=== PATIENT | male | born 1950 | race Caucasian/White ===

== ENCOUNTER → 2020-02-16 10:14 | Outpatient (CLI) | payer MEDICARE, SELFPAY ==
--- NOTE | ~2020-02-16 | XR_ITS ---
EXAMINATION: XR foot LT min 3V DATE: 02/16/2020 10:42 INDICATION: Left foot pain TECHNIQUE: Dorsoplantar, lateral, and 2 oblique views of the left foot were obtained. COMPARISON: None. FINDINGS: There is mild dorsal soft tissue swelling overlying the distal metatarsals. The bones are o steopenic which limits the sensitivity for fracture however none is seen. Dorsal and plantar calcanea l enthesophytes are noted. There is mild polyarticular osteoarthritis. Bone alignment is normal. IMPRESSION: 1. No acute osseous abnormality. Reviewed, dictated and finalized at location A. URERS
== END ==
PROVIDERS: PCP Family Medicine; Visit Provider Family Medicine
DX: M79.672 Pain in left foot (principal)
CPT/HCPCS: 73630

== ENCOUNTER → 2020-07-26 03:01 | Outpatient (CLI) | payer MEDICARE, SELFPAY ==
[2020-07-26 19:42] LABS: SARS-CoV-2 RNA PCR Negative
== END ==
PROVIDERS: PCP Family Medicine; Visit Provider Internal Medicine Gastroenterology
DX: Z01.812 Encounter for preprocedural laboratory examination (principal); Z20.822 Contact with and (suspected) exposure to COVID-19
CPT/HCPCS: C9803; U0003; U0005

== ENCOUNTER 2020-07-29 01:11 | Day surgery (SDC) | payer MEDICARE, SELFPAY ==
[2020-07-16 14:57] VITALS: BMI 26.4
[2020-07-29 07:39] VITALS: BP 136/69; PULSE 66; RESP 20; TEMP 36.3; O2SAT 100
[2020-07-29] MEDS: LACTATED RINGERS 1,000 ML 150 ML IV CONT (07:46)
--- NOTE | 2020-07-29 08:45 | PM.HPGS ---
History of Present Illness History of Present Illness Consent: Risks, benefits, and alternatives have been discussed and questions answered. Patient agrees to proceed with procedure. Chief complaint: hx of colon polyps, meyer's esophagus Narrative: Torres Redmond is a 69 year old male Here for follow-up of Meyer's esophagus and for screening for colon cancer. He has had polyps removed in the past Review of Systems Review of Systems: All systems reviewed & are unremarkable except as noted in HPI and below PMFSH Family History Family History Other Family history of congenital heart disease Social History Social History Smoking status: Never smoker Drinks per week: 4 Alcohol use details: beer Living arrangements: with family Gender identity (if verbalized by the patient): Male Spiritual care concerns: No Meds Home Medications and Allergies Home Medications Medication Instructions Recorded Confirmed Type amlodipine 10 mg PO DAILY 07/16/20 07/29/20 History aspirin 81 mg PO DAILY 07/16/20 07/29/20 History coenzyme Q10 200 mg PO DAILY 07/16/20 07/29/20 History diclofenac sodium 75 mg PO DAILY 07/16/20 07/29/20 History ezetimibe 10 mg PO DAILY 07/16/20 07/29/20 History famotidine 20 mg PO DAILY 07/16/20 07/29/20 History latanoprost 1 drp EACH EYE DAILY 07/16/20 07/29/20 History lisinopril-hydrochlorothiazide 2 tablet PO DAILY 07/16/20 07/29/20 History magnesium 250 mg PO DAILY 07/16/20 07/29/20 History nebivolol [Bystolic] 10 mg PO DAILY 07/16/20 07/29/20 History omeprazole 20 mg PO DAILY 07/16/20 07/29/20 History pravastatin 80 mg PO DAILY 07/16/20 07/29/20 History Allergies Allergy/AdvReac Type Severity Reaction Status Date / Time morphine Allergy Unknown Itching Verified 07/29/20 07:38 Vital Signs Vital Signs - 24 hr 07/29/20 07:39 Temperature 36.3 C L Pulse Rate 66 Respiratory Rate 20 Blood Pressure 136/69 Pulse Oximetry 100 Exam Const: General: alert Orientation/consciousness: patient oriented x3 Resp: Auscultation: clear to auscultation bilaterally Cardio: Rhythm: regular rhythm GI: GI Palp: Yes Soft to palpation and No Tenderness to palpation present (GI) Neuro: General: patient oriented x3 Assessment and Plan Assessment and plan (1) Meyer's esophagus: Code(s): K22.70 - Meyer's esophagus without dysplasia Status: Acute Assessment and Plan: EGD with possible biopsy or dilatation or cautery. (2) Colon cancer screening: Code(s): Z12.11 - Encounter for screening for malignant neoplasm of colon Status: Acute Assessment and Plan: Colonoscopy with possible biopsy or polypectomy or cautery or injection of substances.
--- NOTE | 2020-07-29 08:53 | WPDANESEPPF ---
Anes - Initial Pre Proc Eval Procedure: Operation Date: 07/29/20 09:00 Proposed Procedures p Esophagogastroduodenoscopy & Colonoscopy - Gilbert Li MD Date/Time: 07/29/20 08:53 Surgeon: Gilbert Li MD Pre Op Diagnosis: hx of colon polyps, meyer's esophagus Patient Data Age: 69 Gender: M Height: 5 ft 9 in Weight: 76.1 kg Last Vital Signs Temp 97.4 F L 07/29/20 07:39 Pulse 66 07/29/20 07:39 Resp 20 07/29/20 07:39 BP 136/69 07/29/20 07:39 Pulse Ox 100 07/29/20 07:39 Allergies Allergy/AdvReac Type Severity Reaction Status Date / Time morphine Allergy Unknown Itching Verified 07/29/20 07:38 Home Medications Medication Instructions Recorded Confirmed Type amlodipine 10 mg PO DAILY 07/16/20 07/29/20 History aspirin 81 mg PO DAILY 07/16/20 07/29/20 History coenzyme Q10 200 mg PO DAILY 07/16/20 07/29/20 History diclofenac sodium 75 mg PO DAILY 07/16/20 07/29/20 History ezetimibe 10 mg PO DAILY 07/16/20 07/29/20 History famotidine 20 mg PO DAILY 07/16/20 07/29/20 History latanoprost 1 drp EACH EYE DAILY 07/16/20 07/29/20 History lisinopril-hydrochlorothiazide 2 tablet PO DAILY 07/16/20 07/29/20 History magnesium 250 mg PO DAILY 07/16/20 07/29/20 History nebivolol [Bystolic] 10 mg PO DAILY 07/16/20 07/29/20 History omeprazole 20 mg PO DAILY 07/16/20 07/29/20 History pravastatin 80 mg PO DAILY 07/16/20 07/29/20 History Patient hx anesthesia problems: none Family hx anesthesia problems: none PMFSH Past Medical History Medical History (Updated 07/29/20 @ 08:54 by Darren Alcala MD) H/O acute myocardial infarction no problems since 1996 Hyperlipidemia Hypertension Family History Family History Other Family history of congenital heart disease Social History Social History Smoking status: Never smoker Drinks per week: 4 Alcohol use details: beer Living arrangements: with family Gender identity (if verbalized by the patient): Male Spiritual care concerns: No Anes - Eval Final PreProcedure Day of Procedure 07/29/20 08:53 Patient weight: overweight Heart: regular rate and rhythm Lungs: clear to auscultation Airway: Mallampati scale class II Neurological: alert and oriented Last oral intake: >/= 8 hours ASA classification: III Emergent: no Anesthetic plan: proceed Anesthesia type and monitoring: general GIVS and standard monitoring Informed Consent: The patient's anesthetic plan and its attendant risks and benefits were discussed with the patient/family/POA. Questions were solicited and answers provided to the satisfaction of the patient/family/POA.
--- NOTE | 2020-07-29 09:23 | SUR.OPER ---
EGD ENDED 909, COLONOSCOPY BEGAN 913
[2020-07-29 09:27] VITALS: BP 98/53; PULSE 62; RESP 19; O2SAT 99
[2020-07-29 09:37] VITALS: BP 104/50; PULSE 52; RESP 17; O2SAT 99
[2020-07-29 09:47] VITALS: BP 119/72; PULSE 51; RESP 19; O2SAT 100
== END 2020-07-29 09:50 | disposition home or self-care (01) ==
PROVIDERS: PCP Family Medicine; Visit Provider Internal Medicine Gastroenterology
PROC: 0DJ08ZZ Inspection of Upper Intestinal Tract, Via Natural or Artificial Opening Endoscopic (ICD-10-PCS; CPT 43235; principal; 2020-07-29 09:00)
DX: Z12.11 Encounter for screening for malignant neoplasm of colon (principal); K57.30 Diverticulosis of large intestine without perforation or abscess without bleeding; K22.70 Barrett's esophagus without dysplasia; Z86.010 Personal history of colon polyps; I10 Essential (primary) hypertension; I25.2 Old myocardial infarction; E78.5 Hyperlipidemia, unspecified; Z79.82 Long term (current) use of aspirin
CPT/HCPCS: 43239; G0105; 88305; J2704; J7120

== ENCOUNTER 2021-01-06 08:57 | Outpatient (CLI) | payer MEDICARE, SELFPAY ==
--- NOTE | ~2021-01-06 | US_ITS ---
US art doppler w press LE BI INDICATION: Bilateral lower extremity pain and fatigue. Decreased pulses. TECHNIQUE: Segmental pressures and plethysmographic and Doppler waveforms of the brachial and lower e xtremity arteries were obtained. COMPARISON: None. FINDINGS: Right and left brachial artery pressures of 133 mm Hg and 136 mm Hg, respectively, are concordant (no rmal difference <= 30 mmHg). The right ankle-brachial index (ANETTE) is 1.13 (normal >= 0.9-1.0). The right great toe-brachial index (TBI) is .56 (normal >= 0.60). The left ANETTE is 1.07. The left TBI is 0.9. IMPRESSION: 1. Mildly diminished right toe brachial index with normal ABIs, consistent with mild peripheral arter ial disease. 2: Normal left ankle and toe brachial indices. Reviewed, dictated and finalized at location A. IMPRESSION: 1. Mildly diminished right toe brachial index with normal ABIs, consistent with mild peripheral arterial disease. 2: Normal left ankle and toe brachial indices.
== END 2021-01-06 08:58 | disposition home or self-care (01) ==
PROVIDERS: PCP Family Medicine; Visit Provider Internal Medicine Cardiovascular Disease
DX: M79.604 Pain in right leg (principal); M79.605 Pain in left leg; R29.898 Other symptoms and signs involving the musculoskeletal system; I73.89 Other specified peripheral vascular diseases
CPT/HCPCS: 93923

== ENCOUNTER 2021-01-19 08:32 | Outpatient (CLI) | payer MEDICARE, SELFPAY ==
--- NOTE | ~2021-01-19 | MR_ITS ---
EXAMINATION: MR lumbar spine wo con DATE: 01/19/2021 09:39 INDICATION: Degenerative disc disease of the lumbar spine TECHNIQUE: Magnetic resonance imaging (MRI) of the lumbar spine was performed without intravenous con trast. Sequences included sagittal T2-weighted FSE, sagittal T2-weighted FS FSE, sagittal T1-weighted FSE, and axial T2-weighted FSE. COMPARISON: 05/24/2018 FINDINGS: 10 degrees thoracolumbar dextroscoliosis measured between T10 and L3 on the stabilizer operator images. Sagittal al ignment is normal. No interval change in chronic mild anterior wedging at T11-L1. There are a few sma ll Schmorl's nodes at multiple endplates in the lumbar and lower thoracic spine. Severe disc height l oss with endplate osteophytes and fibrovascular degenerative endplate changes at L3-L4. Disc height l oss, severe at L3-L4 and L5-S1, both with degenerative endplate osteophytes and fibrovascular degener ative endplate changes. Moderate disc height loss at L2-L3 and mild disc height loss at L4-L5. There are annular fissures at each of these levels. Marrow signal is otherwise normal. The conus medullaris terminates at L1. There is normal signal in the caudal spinal cord. 1.4 cm right renal cyst. Paraver tebral soft tissues are otherwise unremarkable. The following disc levels are specifically discussed: T12-L1: Disc is mildly bulging. There is moderate right and mild left facet joint osteoarthritis. The re is no neural foraminal stenosis. There is no central canal stenosis. L1-L2: Mild left foraminal disc protrusion. There is mild left and moderate right facet joint osteoar thritis. There is mild bilateral neural foraminal stenosis. There is no central canal stenosis. L2-L3: Disc is bulging. There is mild bilateral facet joint osteoarthritis. There is mild to moderate bilateral neural foraminal stenosis. There is mild central canal stenosis. L3-L4: Disc is bulging to a lesser degree than on the prior study. There is moderate to severe bilate ral facet joint osteoarthritis. There is severe right and moderate to severe left neural foraminal st enosis. There is decreased moderate central canal stenosis. There is mild increased signal at the rig ht side of the ligamentum flavum suggesting possible scarring related to prior access for a partial d iscectomy. Correlate with surgical history. L4-L5: Disc is bulging. There is severe bilateral, right greater than left facet joint osteoarthritis . There is severe right and moderate to severe left neural foraminal stenosis. There is moderate cent ral canal stenosis. L5-S1: Disc is bulging. There is severe bilateral facet joint osteoarthritis. There is moderate left and moderate to severe right neural foraminal stenosis. There is mild central canal stenosis. IMPRESSION: 1. Severe lumbar spondylosis with progression of disc height loss but decrease in the size of the pos terior disc bulge L3-L4 suggesting interval partial discectomy with decreased now moderate central ca nal stenosis at this level. Reviewed, dictated and finalized at location B. IMPRESSION: 1. Severe lumbar spondylosis with progression of disc height loss but decrease in the size of the posterior disc bulge L3-L4 suggesting interval partial disce ctomy with decreased now moderate central canal stenosis at this level.
== END 2021-01-19 08:33 | disposition home or self-care (01) ==
PROVIDERS: PCP Family Medicine; Visit Provider Family Medicine
DX: M47.815 Spondylosis without myelopathy or radiculopathy, thoracolumbar region (principal); M48.05 Spinal stenosis, thoracolumbar region; M47.817 Spondylosis without myelopathy or radiculopathy, lumbosacral region; M48.07 Spinal stenosis, lumbosacral region
CPT/HCPCS: 72148

== ENCOUNTER 2021-02-06 12:32 | Outpatient (CLI) | payer MEDICARE, SELFPAY ==
--- NOTE | ~2021-02-06 | MR_ITS ---
EXAMINATION: MR thoracic spine wo con EXAM DATE: 02/06/2021 14:00 INDICATION: Lumbar radiculopathy TECHNIQUE: Multi-sequential, multiplanar MR images of the thoracic spine were obtained without contra st. Sagittal T1, T2, T2 fat saturation, axial T2 weighted images reviewed. Correlation is made to [facility] [place] 2011. FINDINGS: Mild mid and lower thoracic disc disease. Mild diffuse thoracic facet arthropathy. The spin al cord signal intensity and intrinsic morphology is normal. The thoracic neural foramen and central canal are widely patent. There are small to moderate-sized mid and lower thoracic anterolateral endpl ate osteophytes. In the T5 vertebral body there is vague decreased T1 and T2 signal intensity measuri ng 1.1 cm, differential diagnosis including atypical hemangioma and less likely osteoblastic disease. Paraspinal soft tissue is unremarkable. IMPRESSION: 1. Mild thoracic spondylosis without stenosis. 2. Nonspecific vague T5 hypointensity more likely atypical hemangioma than osteoblastic disease. If PSA elevated, bone scan would be indicated. Reviewed, dictated and finalized at location B. IMPRESSION: 1. Mild thoracic spondylosis without stenosis. 2. Nonspecific vague T5 hypointensity more likely atypical hemangioma than ost eoblastic disease. If PSA elevated, bone scan would be indicated.
--- NOTE | ~2021-02-06 | MR_ITS ---
EXAMINATION: MR cervical spine wo/w con EXAM DATE: 02/06/2021 14:08 INDICATION: Cervical spondylosis, right arm numbness and pain for one month. History cervical surgery . TECHNIQUE: Multi-sequential, multiplanar MR images of the cervical spine were obtained without contra st. Axial T2, axial T2 MERGE sequence. Sagittal T1, T2, T2 fat saturation images also obtained. Axi al T1 weighted sequence. Patient was then injected with 14 mL Multihance intravenous contrast and re imaged. Postcontrast axial and sagittal T1-weighted fat saturation sequences were obtained. There i s no prior study for comparison. FINDINGS: There is 3 mm anterolisthesis C3 on C4 with moderate loss of this disc height. There is 2 mm retrolisthesis C6 on C7 with moderate to severe loss of this disc height. There is anterior fusion and solid bone bridging identified at the C5-6 level. There is mild to moderate central canal stenosis at the C3-4 level, which is the most narrowed region of the cervical spinal canal, but still measures 7 mm in mid sagittal AP dimension. There is mild fl attening of the spinal cord at this level and mildly increased T2 signal intensity, could be mild cor d edema or myelomalacia. Uncertain whether or not steroids would be beneficial. Cervicomedullary junc tion is normal in appearance. There is 2 mm retrolisthesis C6 on C7. There are no areas of abnormal enhancement on the post contrast images. Level by level evaluation: C2-C3: Disc does not extend beyond the endplate margin. Uncovertebral joint arthropathy: Mild bilateral. Facet joint arthropathy: Moderate to severe right, mild to moderate left. Neural foraminal stenosis: Mild to moderate right, mild left. Central canal stenosis: No stenosis. C3-C4: There is a mild to moderate diffuse disc bulge. Uncovertebral joint arthropathy: Mild to moderate. Facet joint arthropathy: Severe left, moderate right. Neural foraminal stenosis: Severe left, moderate right. Central canal stenosis: Mild to moderate . Central canal measures 7 mm in mid sagittal AP diameter . C4-C5: There is a mild diffuse disc bulge. Uncovertebral joint arthropathy: Mild. Facet joint arthropathy: Moderate. Neural foraminal stenosis: Mild to moderate left, mild right. Central canal stenosis: No stenosis. C5-C6: This level is fused. Uncovertebral joint arthropathy: Mild. Facet joint arthropathy: Mild to moderate. Neural foraminal stenosis: No stenosis. Central canal stenosis: No stenosis. C6-C7: There is a mild diffuse disc bulge. Uncovertebral joint arthropathy: None. Facet joint arthropathy: Moderate bilateral. Neural foraminal stenosis: Moderate to severe bilateral, right more than left. Central canal stenosis: Mild. C7-T1: Disc does not extend beyond the endplate margin. Uncovertebral joint arthropathy: Mild. Facet joint arthropathy: Mild to moderate. Neural foraminal stenosis: Mild right. Central canal stenosis: No stenosis. IMPRESSION: 1. C3-4 anterolisthesis, with severe left neural foraminal stenosis, mild to moderate canal stenosis and mild flattening of the cord. Mild cord signal abnormality which could be edema or myelomalacia. Consider trial of steroids. 2. C6-7 moderate to severe bilateral neural foraminal stenosis. 3. C5-6 fusion. Reviewed, dictated and finalized at location B. IMPRESSION: 1. C3-4 anterolisthesis, with severe left neural foraminal stenosis, mild to m oderate canal stenosis and mild flattening of the cord. Mild cord signal abnorm ality which could be edema or myelomalacia. Consider trial of steroids. 2. C6-7 moderate to severe bilateral neural foraminal stenosis. 3. C5-6 fusion.
[2021-02-06 13:11] LABS: Estimated Glomerular Filt Rate 60
== END 2021-02-06 12:33 | disposition home or self-care (01) ==
LOC: ANHIMG 12:44
PROVIDERS: PCP Family Medicine; Visit Provider Neurological Surgery
DX: M47.812 Spondylosis without myelopathy or radiculopathy, cervical region (principal); M54.16 Radiculopathy, lumbar region; Z98.1 Arthrodesis status
CPT/HCPCS: 72146; 72156; A9577

== ENCOUNTER 2021-05-27 07:53 | Outpatient (CLI) | payer MEDICARE, SELFPAY ==
[2021-05-27 09:07] LABS: Anion Gap 7 mmol/L (8-16); Blood Urea Nitrogen 21 mg/dL (9-20); Calcium 9.2 mg/dL (8.4-10.2); Carbon Dioxide 31 mmol/L (22-30); Chloride 96 mmol/L (98-107); Estimated Glomerular Filt Rate > 60; Glucose 88 mg/dL (65-110); Potassium 4.3 mmol/L (3.4-5.0); Sodium 134 mmol/L (137-145)
== END 2021-05-27 07:54 | disposition home or self-care (01) ==
LOC: ANHSURGERY 07:57
PROVIDERS: Anesthesiology; PCP Family Medicine; Visit Provider Surgery
DX: K40.90 Unilateral inguinal hernia, without obstruction or gangrene, not specified as recurrent (principal); I10 Essential (primary) hypertension; Z01.818 Encounter for other preprocedural examination
CPT/HCPCS: 36415; 80048; 86850; 86900; 86901

== ENCOUNTER 2021-05-31 00:23 | Day surgery (SDC) | payer MEDICARE, SELFPAY ==
--- NOTE | 2021-05-23 13:38 | PC.NURSE ---
Addendum entered by Brook Alcala RN 05/25/21 09:02: TAKE CARVEDILOL MORNING OF SURGERY AND HOLD ALL VITAMINS AND SUPPLEMENTS 3 DAYS PRE OP Original Note: Report to the Outpatient Waiting Room, entrance under the green pavilion located off [facility], at time 0600 on date _05/31/21 . OR Time: __729 . - You will be asked a series of questions to screen for COVID 19 for your protection. - A mask is required within the hospital. - No visitors are allowed at this time. Preoperative COVID Testing Requirements: No COVID Test needed if: (proof is required; if not received patient will have Rapid Test prior to entry) - Patient has received COVID Vaccine at least 14 days prior to procedure date or - Patient has positive COVID test result within last 90 days of surgery date. COVID Test needed if above criteria is not met If not COVID vaccinated a COVID test must be conducted within 72 hours of surgery and patient is asked to isolate self from time of testing until procedure. You will go to the [facility] for your COVID testing. The [facility] is located at the corner of [address] [facility]. You will only be called if COVID results are positive and your surgeon may reschedule your elective surgery date. Patients may have clear liquids (water, carbonated beverages, clear teas, apple juice) until 3 hours prior to surgery with a maximum of 20 ounces. - No food from midnight until time of surgery - Infants may have breast milk until 4 hours before surgery, infant formula 6 hours prior to surgery. - Children will be allowed to drink immediately following surgery. If applicable, please bring a bottle or sippy cup to assist with drinking. Juice, water, soda, and popsicles are readily available. For infants on formula, please bring formula the day of surgery. Pacifiers are allowed. Take the following medications with a SIP of water the morning of surgery: _AMLODIPINE,GABAPENTIN, Medications to discontinue per physician ____DICLOFENAC PER DR AYALA Date to take last dose Please no make-up, nail occitan, hairspray, perfume, deodorant, or body powder the day of surgery. No jewelry (including any body piercings) or valuables the day of surgery, leave them at home. Please take a shower or bath the night before, or the morning of, surgery with an antibacterial soap. Wear comfortable, loose fitting clothing. Children are encouraged to wear pajamas. - Jewelry must be removed prior to entering the operating room. Rings and piercings that are not removed may be cut off. - The hospital will not accept responsibility for valuables. - Please leave all valuables, including medications, at home the day of surgery. HIBICLENS SHOWER MORNING OF SURGERY If you are going home after surgery, a licensed telephone directory distributor driver must drive you home. - NO public transportation without another adult. - We recommend that an adult stay with you for 24 hours following discharge. - We also recommend that you do not drive, make important decision, drink alcoholic beverages, or take any drugs that were not prescribed by your health care provider for at least 24 hours after your discharge time. For Pediatric surgeries, we recommend two adults accompany the child home (only one inside the building at this time). Follow any additional instructions given to you from your surgeon. Telephone instructions given to __PATIENT and asked if any additional questions and then verbalized understanding. Patient advised to call surgeon office or pre surgery nurse liaison [phone] if any additional questions.
[2021-05-23 13:59] VITALS: BMI 22.4
--- NOTE | 2021-05-30 12:20 | WPDANESEPPF ---
Anes - Initial Pre Proc Eval Procedure: Operation Date: 05/31/21 07:30 Proposed Procedures p Laparoscopic Right Inguinal Hernia Repair with Mesh, DaVinci Assisted - Juan Marks DO Date/Time: 05/30/21 12:20 Surgeon: Juan Marks DO Pre Op Diagnosis: Rt Ing Hernia Patient Data Age: 70 Gender: M Height: 1.74 m Weight: 68.05 kg Allergies Allergy/AdvReac Type Severity Reaction Status Date / Time morphine Allergy Unknown Itching/JASON Verified 05/23/21 13:18 H Home Medications Medication Instructions Recorded Confirmed Type amlodipine 10 mg PO DAILY 07/16/20 05/23/21 History aspirin 81 mg PO DAILY 07/16/20 05/23/21 History coenzyme Q10 200 mg PO DAILY 07/16/20 05/23/21 History ezetimibe 10 mg PO DAILY 07/16/20 05/23/21 History famotidine 20 mg PO DAILY 07/16/20 05/23/21 History latanoprost 1 drp EACH EYE QPM 07/16/20 05/23/21 History lisinopril-hydrochlorothiazide 2 tablet PO DAILY 07/16/20 05/23/21 History magnesium 250 mg PO DAILY 07/16/20 05/23/21 History omeprazole 20 mg PO DAILY 07/16/20 05/23/21 History pravastatin 80 mg PO DAILY 07/16/20 05/23/21 History gabapentin 300 mg capsule 300 mg PO TID 04/22/21 05/23/21 History nitroglycerin 0.4 mg sublingual 0.4 mg SUBLINGUAL Q5M PRN 04/22/21 05/23/21 History tablet diclofenac sodium 75 mg PO BID 05/23/21 05/23/21 History carvedilol 12.5 mg PO DAILY 05/25/21 05/25/21 History vitamins A,C,[id number] [ICaps 1 tablet PO ONCE 05/25/21 05/25/21 History AREDS] Patient hx anesthesia problems: none Family hx anesthesia problems: none Results Review: All pre-operative results and documents have been reviewed as part of the pre-operative evaluation. [facility] Past Medical History Medical History (Updated 05/30/21 @ 12:21 by Arnie Nogueira MD) CAD (coronary artery disease) Cervical radiculopathy Chronic GERD H/O acute myocardial infarction no problems since 1996 Hyperlipidemia Hypertension Surgical History Surgical History H/O cervical discectomy H/O repair of rotator cuff History of nasal surgery History of orchiectomy Family History Family History Father Acute myocardial infarction Mother Heart disease Other Family history of congenital heart disease Hypertension Social History Social History Smoking packs per day: 1.5 Smoking cigarettes per day: 30.0 Years smoked: 40 Smoking pack-years: 60.00 Smoking status: Former smoker Tobacco type: cigarettes Smoking end date: 04/16/01 Alcohol intake: current Drinks per week: 4 Alcohol use details: beer Living arrangements: with family Gender identity (if verbalized by the patient): Male Spiritual care concerns: No Anes - Eval Final PreProcedure Day of Procedure 05/30/21 12:20 Patient weight: normal Heart: regular rate and rhythm Lungs: clear to auscultation and normal air movement Airway: Mallampati scale class II Neurological: alert and oriented Last oral intake: >/= 8 hours ASA classification: III Emergent: no Anesthetic plan: proceed Anesthesia type and monitoring: general ETT Results Review: All pre-operative results and documents have been reviewed as part of the pre-operative evaluation. Informed Consent: The patient's anesthetic plan and its attendant risks and benefits were discussed with the patient/family/POA. Questions were solicited and answers provided to the satisfaction of the patient/family/POA.
[2021-05-31] VITALS (11 sets, daily range): BP systolic 95–134; BP diastolic 52–66; PULSE 49–81; RESP 10–18; TEMP 36.2–36.8; O2SAT 94–100; BMI 23.2
[2021-05-31] MEDS: ACETAMINOPHEN 500 MG TABLET 1000 MG PO (07:00)
[2021-05-31] MEDS: KETOROLAC 15 MG/ML VIAL (*BKC) IV PUSH (07:00)
[2021-05-31] MEDS: LACTATED RINGERS 1,000 ML 30 ML IV CONT ×2 (07:00→08:45)
--- NOTE | 2021-05-31 07:13 | WPDHPUPDATE1 ---
History and Physical Update Update Date/Time: 05/31/21 07:13 History and Physical has been reviewed, including an updated exam of the patient. There are NO changes in the patient's condition. Risks, benefits, and alternatives have been discussed and questions answered. Patient agrees to proceed with procedure.
--- NOTE | 2021-05-31 07:13 | PM.IMHP ---
H&P: HPI History of Present Illness Date/Time: 05/31/21 07:13 Chief Complaint: right inguinal hernia Narrative: 70 yo man presents for right inguinal hernia repair. He denies any changes since last seen in office. Review of Systems Review of Systems: All systems reviewed & are unremarkable except as noted in HPI and below Constitutional: Constitutional: Denies chills, Denies fever(s), Denies headache(s) and Denies weight loss Eyes: Eyes: Denies change in vision ENT: Denies dizziness, Denies headache(s), Denies neck mass and Denies throat swelling Cardiovascular: Cardiovascular: Denies chest pain, Denies lightheadedness and Denies dyspnea Respiratory: Respiratory: Denies cough, Denies dyspnea and Denies wheezing Gastrointestinal: Gastrointestinal: Denies abdominal pain, Denies change in bowel habits, Denies nausea and Denies vomiting Genitourinary: Genitourinary: Denies hematuria and Denies dysuria Musculoskeletal: Musculoskeletal: Reports as per HPI Integumentary/Breasts: Skin/Breast: Reports as per HPI Neurologic: Denies dizziness and Denies headache(s) Allergic/Immunologic: Allergic/Immunologic: Denies throat swelling and Denies wheezing [facility] Past Medical History Medical History (Updated 05/30/21 @ 12:21 by Arnie Nogueira MD) CAD (coronary artery disease) Cervical radiculopathy Chronic GERD H/O acute myocardial infarction no problems since 1996 Hyperlipidemia Hypertension Surgical History Surgical History H/O cervical discectomy H/O repair of rotator cuff History of nasal surgery History of orchiectomy Family History Family History Father Acute myocardial infarction Mother Heart disease Other Family history of congenital heart disease Hypertension Social History Social History Smoking packs per day: 1.5 Smoking cigarettes per day: 30.0 Years smoked: 40 Smoking pack-years: 60.00 Smoking status: Former smoker Tobacco type: cigarettes Smoking end date: 04/16/01 Alcohol intake: current Drinks per week: 4 Alcohol use details: beer Living arrangements: with family Gender identity (if verbalized by the patient): Male Spiritual care concerns: No Meds Home Medications and Allergies Home Medications Medication Instructions Recorded Confirmed Type amlodipine 10 mg PO DAILY 07/16/20 05/23/21 History aspirin 81 mg PO DAILY 07/16/20 05/23/21 History coenzyme Q10 200 mg PO DAILY 07/16/20 05/23/21 History ezetimibe 10 mg PO DAILY 07/16/20 05/23/21 History famotidine 20 mg PO DAILY 07/16/20 05/23/21 History latanoprost 1 drp EACH EYE QPM 07/16/20 05/23/21 History lisinopril-hydrochlorothiazide 2 tablet PO DAILY 07/16/20 05/23/21 History magnesium 250 mg PO DAILY 07/16/20 05/23/21 History omeprazole 20 mg PO DAILY 07/16/20 05/23/21 History pravastatin 80 mg PO DAILY 07/16/20 05/23/21 History gabapentin 300 mg capsule 300 mg PO TID 04/22/21 05/23/21 History nitroglycerin 0.4 mg sublingual 0.4 mg SUBLINGUAL Q5M PRN 04/22/21 05/23/21 History tablet diclofenac sodium 75 mg PO BID 05/23/21 05/23/21 History carvedilol 12.5 mg PO DAILY 05/25/21 05/25/21 History vitamins A,C,G-wvnl-uoland [ICaps 1 tablet PO ONCE 05/25/21 05/25/21 History AREDS] Allergies Allergy/AdvReac Type Severity Reaction Status Date / Time morphine Allergy Unknown Itching/JASON Verified 05/23/21 13:18 H Exam Const: General: no acute distress and alert Orientation/consciousness: patient oriented x3 HENMT: Head: normocephalic and atraumatic Ears: hearing grossly normal bilaterally General nose exam: Normal nares present Mouth: Yes Normal oral and palatal mucosa present Eyes: Periorbital: periorbital findings normal Sclera: sclerae normal EOM: EOMs intact bilaterally Neck: Neck: normal visual inspect
[2021-05-31] MEDS: ceFAZolin 2 GM/D5W 50 ML 2 GM/50 ML BAG IVPB (07:29)
--- NOTE | 2021-05-31 08:31 | W.PM.PROC2 ---
Procedure Note - Detailed Date of Procedure 05/31/21 Pre-op Diagnosis Right inguinal hernia Post-op Diagnosis same (Direct right inguinal hernia) Procedure Performed Laparoscopic right inguinal hernia repair with mesh, da Kota assisted Surgeon Juan Marks, DO Anesthesia general and local (0.5% bupivacaine with epinephrine) Indications This is a 70-year-old man who presented with a right groin bulge that he noticed about 4 months ago. He has some mild discomfort but denies any significant pain. He was found to have a reducible right inguinal hernia on physical exam. Discussions were made with the patient about treatment options and decision was made to proceed with laparoscopic right inguinal hernia repair with mesh, da Kota assisted. Findings Laparoscopic right inguinal hernia repair was performed. A robotic transabdominal preperitoneal approach was utilized. Patient was found to have a direct right inguinal defect. There was no evidence of a left inguinal hernia. Once a wide enough preperitoneal pocket was created, I then placed a large right 3DMax mid mesh overlying the entire right myopectineal orifice. No specimens were obtained for pathology. Description of Procedure Procedure as well as risks, benefits, and alternatives were discussed with the patient. Written consent was obtained and placed in chart prior to procedure. Patient was brought back to surgical suite. He was placed supine on operating table. Time-out was done to confirm patient and procedure. He was then intubated by Anesthesia Department. His abdomen was prepped and draped in sterile fashion using chlorhexidine prep. 0.5% bupivacaine with epinephrine was infiltrated at each location for incision. A 12 millimeter transverse incision was made just superior to the umbilicus using a 15 blade scalpel. Blunt dissection was carried out down to the linea alba. A vertical incision was made at the linea alba using a 15 blade scalpel. The peritoneum was then bluntly entered. A 12 millimeter trocar was inserted and carbon dioxide insufflation was used to create a pneumoperitoneum. A camera was inserted and the abdominal cavity was inspected. The patient was placed in slight Trendelenburg position. An 8 millimeter incision was made on the right lateral abdomen and an 8 millimeter trocar was inserted under direct visualization. Another 8 millimeter incision was made in the left lateral abdomen and an 8 millimeter trocar was inserted under direct visualization. The robotic arms were brought up to the patient's bedside and secured to the ports. The camera and instruments were inserted. I then moved over to the robotic console and took control of the camera and instruments. After careful inspection of the abdominal cavity, I began scoring the peritoneum along the right lower quadrant using scissors with electrocautery. The preperitoneal plane was entered and this was carefully dissected caudally along the inferior epigastric vessels. Careful dissection with scissors with electrocautery and blunt dissection was used to continue this dissection. I dissected far enough laterally to allow for mesh placement, and also dissected medially to identify the pubic arch and Edward's ligament. The hernia sac was identified and carefully dissected posteriorly. The cord contents were also identified and the peritoneum was carefully dissected far enough posteriorly to allow for mesh placement. Once an adequate pocket was created, I then placed the mesh within the preperitoneal pocket and carefully unfolded it. The mesh was centered on the hernia defect with adequate overlap circumferentially. The inferior edge of the mesh was inspected to ensure that it was far enough away from the peritoneal edge. The mesh appeared in proper position overlying the entire myopectineal orifice. The mesh was secured using 3-0 Vicryl simple interrupted sutures in Edward's ligament, the superior medial edge, and superi
[2021-05-31] MEDS: BUPIVACAINE/EPINEPHRINE 0.5% 30 ML VIAL INFILTRATE (08:32)
== END 2021-05-31 11:58 | disposition home or self-care (01) ==
PROVIDERS: PCP Family Medicine; Visit Provider Surgery
PROC: 8E0Y4CZ Robotic Assisted Procedure of Lower Extremity, Percutaneous Endoscopic Approach (ICD-10-PCS; CPT 49650; principal; 2021-05-31 07:30)
DX: K40.90 Unilateral inguinal hernia, without obstruction or gangrene, not specified as recurrent (principal); I25.10 Atherosclerotic heart disease of native coronary artery without angina pectoris; I10 Essential (primary) hypertension; E78.5 Hyperlipidemia, unspecified; I25.2 Old myocardial infarction; K21.9 Gastro-esophageal reflux disease without esophagitis; M54.12 Radiculopathy, cervical region; Z79.82 Long term (current) use of aspirin; Z87.891 Personal history of nicotine dependence
CPT/HCPCS: 49650; S2900; A9270; C1781; J0690; J1100; J1170; J1885; J2250; J2370; J2405; J2704; J2710; J3010; J7030; J7120

== ENCOUNTER 2022-05-05 09:20 | Outpatient (CLI) | payer MEDICARE, SELFPAY ==
--- NOTE | 2022-05-05 09:29 | ECG_ITS ---
Measurements Intervals [place] Rate: 63 P: 80 VA: 209 QRS: 37 QRSD: 90 T: 59 QT: 370 QTc: 379 Interpretive Statements SINUS RHYTHM DELAYED PRECORDIAL R/S TRANSITION BASELINE ARTIFACT- I, II, III, AVR, AVL, AVF, V1-V6 BORDERLINE ECG NO PREVIOUS ECG AVAILABLE FOR COMPARISON Electronically Signed On 05-05-2022 10:11:16 PRODUCE CLERK by Bart Gamez D.O.
[2022-05-05 10:08] LABS: Anion Gap 4 mmol/L (8-16); Blood Urea Nitrogen 20 mg/dL (9-20); Calcium 8.9 mg/dL (8.4-10.2); Carbon Dioxide 31 mmol/L (22-30); Chloride 99 mmol/L (98-107); Estimated Glomerular Filt Rate > 60; Glucose 86 mg/dL (65-110); Potassium 4.2 mmol/L (3.4-5.0); Sodium 134 mmol/L (137-145)
== END 2022-05-05 09:21 | disposition home or self-care (01) ==
PROVIDERS: Anesthesiology; PCP Family Medicine; Visit Provider Orthopaedic Surgery
DX: I10 Essential (primary) hypertension (principal); Z01.818 Encounter for other preprocedural examination; R94.31 Abnormal electrocardiogram [ECG] [EKG]
CPT/HCPCS: 36415; 80048; 93005

== ENCOUNTER 2022-05-11 00:53 | Day surgery (SDC) | payer MEDICARE, SELFPAY ==
--- NOTE | 2022-05-04 14:10 | PC.NURSE ---
Report to the Outpatient Waiting Room, entrance under the green pavilion located off [facility], at time __0830 on date __05/11/22 . Planned Procedure Time: _1030 . Time changes happen often and if your time is changed the preop area will call you the afternoon before. - You and your visitor will be asked to self-screen and do not enter if you have any COVID symptoms. - Only one visitor is requested with a max of two and NO children visitors are allowed at this time. - The patient visitor may be requested to leave or wait in car when not with patient due to distancing restrictions. - A mask is optional within the hospital. Patients may have clear liquids (water, carbonated beverages, clear teas, apple juice) until 3 hours prior to surgery with a maximum of 20 ounces. - No food from midnight until time of surgery - Infants may have breast milk until 4 hours before surgery, formula 6 hours prior to surgery. - Children will be allowed to drink immediately following surgery. If applicable, please bring a bottle or sippy cup to assist with drinking. Juice, water, soda, and popsicles are readily available. For infants on formula, please bring formula the day of surgery. Pacifiers are allowed. Take the following medications with a SIP of water the morning of surgery: _AMLODIPINE,GABAPENTIN Medications to discontinue per physician ___ASPIRIN 7 DAYS PRE OP PER DR HERNANDEZ LAST DOSE05/03/22_ALL VITAMINS AND SUPPLEMENTS 3 DAYS PRE OP LAST DOSE 05/07/22 Please no make-up, nail slovenian, hairspray, perfume, deodorant, or body powder the day of surgery. No jewelry (including any body piercings) or valuables the day of surgery, leave them at home. Please take a shower or bath the night before, or the morning of, surgery with an antibacterial soap. Wear comfortable, loose fitting clothing. Children are encouraged to wear pajamas. - Jewelry must be removed prior to entering the operating room. Rings and piercings that are not removed may be cut off. - The hospital will not accept responsibility for valuables. - Please leave all valuables, including medications, at home the day of surgery. If you are going home after surgery, a licensed catshovel driver must drive you home. - NO public transportation without another adult if you receive anesthesia. - We recommend that an adult stay with you for 24 hours following discharge. - We also recommend that you do not drive, make important decision, drink alcoholic beverages, or take any drugs that were not prescribed by your health care provider for at least 24 hours after your discharge time. Follow any additional instructions given to you from your surgeon. If you or anyone in your household have experienced Covid symptoms in the past week, please notify your surgeon or the nurse liaison at the phone number below for possible testing. Telephone instructions given to _PATIENT and asked if any additional questions and then verbalized understanding. Patient advised to call surgeon office or pre surgery nurse liaison [phone] if any additional questions.
[2022-05-04 14:25] VITALS: BMI 20.9
--- NOTE | 2022-05-10 12:49 | WPDANESEPPF ---
Anes - Initial Pre Proc Eval Procedure: Operation Date: 05/11/22 07:30 Proposed Procedures p Right Carpal Tunnel Release - Marck Hernandez MD Date/Time: 05/10/22 12:49 Surgeon: Marck Hernandez MD Pre Op Diagnosis: right carpal tunnel syndrome Patient Data Age: 71 Gender: M Height: 1.74 m Weight: 63.55 kg Allergies Allergy/AdvReac Type Severity Reaction Status Date / Time morphine Allergy Unknown Itching/JASON Verified 05/04/22 13:54 H Home Medications Medication Instructions Recorded Confirmed Type amlodipine 10 mg tablet 10 mg PO DAILY 07/16/20 05/04/22 History aspirin 81 mg tablet 81 mg PO DAILY 07/16/20 05/04/22 History coenzyme Q10 200 mg PO DAILY 07/16/20 05/04/22 History ezetimibe 10 mg tablet 10 mg PO DAILY 07/16/20 05/04/22 History famotidine 20 mg PO DAILY 07/16/20 05/04/22 History latanoprost 0.005 % eye drops 1 drp EACH EYE QPM 07/16/20 05/04/22 History lisinopril 20 2 tablet PO DAILY 07/16/20 05/04/22 History mg-hydrochlorothiazide 25 mg tablet magnesium 250 mg PO DAILY 07/16/20 05/04/22 History omeprazole 20 mg capsule,delayed 20 mg PO DAILY 07/16/20 05/04/22 History release pravastatin 80 mg tablet 80 mg PO DAILY 07/16/20 05/04/22 History gabapentin 300 mg capsule 300 mg PO TID 04/22/21 05/04/22 History nitroglycerin 0.4 mg sublingual 0.4 mg sublingual Q5M PRN Chest 04/22/21 05/04/22 History tablet (Nitrostat) Pain diclofenac sodium 75 mg 75 mg PO BID 05/23/21 05/04/22 History tablet,delayed release carvedilol 12.5 mg tablet 12.5 mg PO DAILY 05/25/21 05/04/22 History vit A 7,160 unit-C 113 mg-E 100 1 tablet PO ONCE 05/25/21 05/04/22 History ohov-umhv-ftlewj tablet,delayed rel. (ICaps AREDS) trazodone 50 mg tablet 50 mg PO HS 05/04/22 05/04/22 History Patient hx anesthesia problems: none Family hx anesthesia problems: none Results Review: All pre-operative results and documents have been reviewed as part of the pre-operative evaluation. [facility] Past Medical History Medical History (Updated 04/26/22 @ 11:26 by Lakesha Lawler MA) Bruises easily CAD (coronary artery disease) Cervical radiculopathy Chronic GERD H/O acute myocardial infarction no problems since 1996 History of stress test Hyperlipidemia Hypertension Surgical History Surgical History (Updated 05/10/22 @ 12:54 by Bala Daley DO) H/O cervical discectomy H/O inguinal hernia repair right side, w mesh davinci assisted 05/31/21 H/O repair of rotator cuff History of nasal surgery History of orchiectomy Family History Family History Father Acute myocardial infarction Mother Heart disease Other Family history of congenital heart disease Hypertension Social History Social History (Updated 04/26/22 @ 11:11 by Lakesha Lawler MA) Smoking packs per day: 1.5 Smoking cigarettes per day: 30.0 Years smoked: 40 Smoking pack-years: 60.00 Smoking status: Former smoker Tobacco type: cigarettes Smoking end date: 04/16/01 Alcohol intake: current Drinks per week: 2 Alcohol use details: beer Lack of Transportation: No Lack of Food: Never True Current Housing: I Have Housing Concerned About Future Housing: No Difficulty Paying Gas/Electric Bills: No Difficulty Paying for Meds: No Currently Unemployed: No Education: High School Diploma/GED Difficulty w/ Childcare or Family Care: No Living arrangements: with family Gender identity (if verbalized by the patient): Male Sexual Orientation (if Verbalized by the Patient): Straight or Heterosexual Spiritual care concerns: No Anes - Eval Final PreProcedure Day of Procedure 05/10/22 12:49 Patient weight: normal Heart: regular rate and rhythm Lungs: clear to auscultation and normal air movement Airway: Mallampati scale class II Neurological: alert and oriented Last oral intake: >/= 8 hours ASA classification: III Tita
[2022-05-11 06:25] VITALS: BP 138/65; PULSE 58; RESP 18; TEMP 36.4; O2SAT 100
[2022-05-11] MEDS: LACTATED RINGERS 1,000 ML 30 ML IV CONT (06:32)
[2022-05-11] MEDS: ACETAMINOPHEN 500 MG TABLET 1000 MG PO (06:41)
[2022-05-11] MEDS: KETOROLAC 15 MG/ML VIAL (*BKC) IV PUSH (06:41)
--- NOTE | 2022-05-11 07:16 | WPDHPUPDATE1 ---
History and Physical Update Update Date/Time: 05/11/22 07:16 History and Physical has been reviewed, including an updated exam of the patient. There are NO changes in the patient's condition. Risks, benefits, and alternatives have been discussed and questions answered. Patient agrees to proceed with procedure.
[2022-05-11] MEDS: ceFAZolin 2 GM/D5W 50 ML 2 GM/50 ML BAG IVPB (07:23)
[2022-05-11] MEDS: BUPIVACAINE/EPINEPHRINE 0.5% 30 ML VIAL INFILTRATE (07:43)
[2022-05-11 07:59] VITALS: BP 87/56; PULSE 57; RESP 12; O2SAT 96
[2022-05-11 08:20] VITALS: BP 114/51; PULSE 51; RESP 12; O2SAT 98
[2022-05-11 08:50] VITALS: BP 117/54; PULSE 58; RESP 14
--- NOTE | 2022-05-11 09:44 | P.OP_ITS ---
Procedure Note - Detailed Date of Procedure 05/11/22 Pre-op Diagnosis Right carpal tunnel syndrome Post-op Diagnosis Same Procedure Performed Right 1. Carpal tunnel release Surgeon Marck Hernandez MD Services Rep Ofelia Schneider PA-C Anesthesia General Description of Procedure After sedation was administer, the hand was prepped and draped in the usual sterile fashion. The proposed incision was marked using typical anatomic landmarks. 6ML 0.5% Marcaine with epinephrine was injected along the incision line and at the distal forearm. The limb was exsanguinated and the tourniquet inflated to 250 millimeters of mercury. A longitudinal incision was taken sharply. Dissection was brought down to the transverse carpal ligament. Under direct vision the ligament was incised sharply. The proximal release was carried out with dissection scissors. The contents of the carpal canal were protected with a [place] elevator. The transverse carpal ligament was confirmed to be widely patent. Estimated Blood Loss -1.0 Pathology None sent Complications No immediate complications Condition Stable Disposition PACU [facility] Billing Surgery - Charge Forward: Surgery Billing
== END 2022-05-11 09:05 | disposition home or self-care (01) ==
PROVIDERS: PCP Family Medicine; Visit Provider Orthopaedic Surgery
PROC: (CPT 64721; principal; 2022-05-11 07:30)
DX: G56.01 Carpal tunnel syndrome, right upper limb (principal); I10 Essential (primary) hypertension; I25.10 Atherosclerotic heart disease of native coronary artery without angina pectoris; E78.5 Hyperlipidemia, unspecified; I25.2 Old myocardial infarction; K21.9 Gastro-esophageal reflux disease without esophagitis; Z79.82 Long term (current) use of aspirin; Z87.891 Personal history of nicotine dependence
CPT/HCPCS: 64721; A9270; J0690; J1885; J2405; J2704; J3010; J7120

== ENCOUNTER 2022-06-13 00:12 | Day surgery (SDC) | payer MEDICARE, SELFPAY ==
--- NOTE | 2022-06-05 11:49 | PC.NURSE ---
Report to the Outpatient Waiting Room, entrance under the green pavilion located off [facility], at time _1130 on date __06/13/22 . Planned Procedure Time: __1:30 PM . Time changes happen often and if your time is changed the preop area will call you the afternoon before. - You and your visitor will be asked to self-screen and do not enter if you have any COVID symptoms. - Only one visitor is requested with a max of two and NO children visitors are allowed at this time. - The patient visitor may be requested to leave or wait in car when not with patient due to distancing restrictions. - A mask is optional within the hospital at this time. Patients may have clear liquids (water, carbonated beverages, clear teas, apple juice) until 3 hours prior to surgery with a maximum of 20 ounces. - No food from midnight until time of surgery - Infants may have breast milk until 4 hours before surgery, formula 6 hours prior to surgery. - Children will be allowed to drink immediately following surgery. If applicable, please bring a bottle or sippy cup to assist with drinking. Juice, water, soda, and popsicles are readily available. For infants on formula, please bring formula the day of surgery. Pacifiers are allowed. Take the following medications with a SIP of water the morning of surgery: __AMLODIPINE AND GABAPENTIN DO NOT STOP ANY OF YOUR OTHER PRESCRIPTION MEDICATIONS PRIOR TO SURGERY ?EXCEPT THE FOLLOWING Medications to discontinue per physician ___ASPIRIN AND DICLOFENAC 7 DAYS PRE OP PER DR HERNANDEZ. LAST DOSE 06/05/22. ALL VITAMNIS/SUPPLEMENTS 3 DAYS PRE OP. LAST DOSE 06/09/22 Please no make-up, nail burundian, hairspray, perfume, deodorant, or body powder the day of surgery. No jewelry (including any body piercings) or valuables the day of surgery, leave them at home. Please take a shower or bath the night before, or the morning of, surgery with an antibacterial soap. Wear comfortable, loose fitting clothing. Children are encouraged to wear pajamas. - Jewelry must be removed prior to entering the operating room. Rings and piercings that are not removed may be cut off. - The hospital will not accept responsibility for valuables. - Please leave all valuables, including medications, at home the day of surgery. If you are going home after surgery, a licensed pile driver operator must drive you home. - NO public transportation without another adult if you receive anesthesia. - We recommend that an adult stay with you for 24 hours following discharge. - We also recommend that you do not drive, make important decision, drink alcoholic beverages, or take any drugs that were not prescribed by your health care provider for at least 24 hours after your discharge time. Follow any additional instructions given to you from your surgeon. If you or anyone in your household have experienced Covid symptoms in the past week, please notify your surgeon or the nurse liaison at the phone number below for possible testing. Telephone instructions given to __PATIENT and asked if any additional questions and then verbalized understanding. Patient advised to call surgeon office or pre surgery nurse liaison [phone] if any additional questions. INSTRUCTIONS MAILED TO PT PER HIS REQUEST
[2022-06-05 11:56] VITALS: BMI 20.9
--- NOTE | 2022-06-12 09:27 | WPDANESEPPF ---
Anes - Initial Pre Proc Eval Procedure: Operation Date: 06/13/22 13:30 Proposed Procedures p Left Carpal Tunnel Release - Marck Hernandez MD Date/Time: 06/12/22 09:27 Surgeon: Marck Hernandez MD Pre Op Diagnosis: left carpal tunnel syndrome Patient Data Age: 71 Gender: M Height: 1.74 m Weight: 63.6 kg Allergies Allergy/AdvReac Type Severity Reaction Status Date / Time morphine Allergy Unknown Itching/JASON Verified 06/13/22 13:07 H Home Medications Medication Instructions Recorded Confirmed Type amlodipine 10 mg tablet 10 mg PO DAILY 07/16/20 06/05/22 History aspirin 81 mg tablet 81 mg PO DAILY 07/16/20 06/05/22 History coenzyme Q10 200 mg PO DAILY 07/16/20 06/05/22 History ezetimibe 10 mg tablet 10 mg PO DAILY 07/16/20 06/05/22 History famotidine 20 mg PO DAILY 07/16/20 06/05/22 History latanoprost 0.005 % eye drops 1 drp EACH EYE QPM 07/16/20 06/05/22 History lisinopril 20 2 tablet PO DAILY 07/16/20 06/05/22 History mg-hydrochlorothiazide 25 mg tablet magnesium 250 mg PO DAILY 07/16/20 06/05/22 History omeprazole 20 mg capsule,delayed 20 mg PO DAILY 07/16/20 06/05/22 History release pravastatin 80 mg tablet 80 mg PO DAILY 07/16/20 06/05/22 History gabapentin 300 mg capsule 300 mg PO TID 04/22/21 06/05/22 History nitroglycerin 0.4 mg sublingual 0.4 mg sublingual Q5M PRN Chest 04/22/21 06/05/22 History tablet (Nitrostat) Pain diclofenac sodium 75 mg 75 mg PO BID 05/23/21 06/05/22 History tablet,delayed release carvedilol 12.5 mg tablet 12.5 mg PO DAILY 05/25/21 06/05/22 History vit A 7,160 unit-C 113 mg-E 100 1 tablet PO ONCE 05/25/21 06/05/22 History phif-ahrw-dfsafb tablet,delayed rel. (ICaps AREDS) trazodone 50 mg tablet 50 mg PO HS 05/04/22 06/05/22 History hydrocodone 5 mg-acetaminophen 325 1 - 2 tablet PO Q4-6H PRN pain #30 06/13/22 Rx mg tablet tabs Patient hx anesthesia problems: none Family hx anesthesia problems: none Results Review: All pre-operative results and documents have been reviewed as part of the pre-operative evaluation. [facility] Past Medical History Medical History (Updated 06/13/22 @ 10:04 by BONNIE Gomez) Colin's esophagus Bruises easily CAD (coronary artery disease) Cervical radiculopathy Chronic GERD H/O acute myocardial infarction 1994, no stent placed, no issues History of stress test Hyperlipidemia Hypertension Surgical History Surgical History H/O cervical discectomy H/O inguinal hernia repair right side, w mesh davinci assisted 05/31/21 H/O repair of rotator cuff History of carpal tunnel release (~05/11/22) Right History of nasal surgery History of orchiectomy Family History Family History Father Acute myocardial infarction Mother Heart disease Other Family history of congenital heart disease Hypertension Social History Social History Smoking packs per day: 1.5 Smoking cigarettes per day: 30.0 Years smoked: 40 Smoking pack-years: 60.00 Smoking status: Former smoker Tobacco type: cigarettes Smoking end date: 04/16/01 Alcohol intake: current Drinks per week: 2 Alcohol use details: beer Lack of Transportation: No Lack of Food: Never True Current Housing: I Have Housing Concerned About Future Housing: No Difficulty Paying Gas/Electric Bills: No Difficulty Paying for Meds: No Currently Unemployed: No Education: High School Diploma/GED Difficulty w/ Childcare or Family Care: No Living arrangements: with family Gender identity (if verbalized by the patient): Male Sexual Orientation (if Verbalized by the Patient): Straight or Heterosexual Spiritual care concerns: No Anes - Eval Final PreProcedure Day of Procedure 06/12/22 09:27 Patient weight: normal Heart: regular
[2022-06-13] MEDS: LACTATED RINGERS 1,000 ML 30 ML IV CONT (12:00)
[2022-06-13] MEDS: ACETAMINOPHEN 500 MG TABLET 1000 MG PO (13:00)
[2022-06-13] MEDS: KETOROLAC 15 MG/ML VIAL (*BKC) IV PUSH (13:00)
[2022-06-13 13:08] VITALS: BP 132/73; PULSE 66; RESP 16; TEMP 36.6; O2SAT 100
--- NOTE | 2022-06-13 13:13 | WPDHPUPDATE1 ---
History and Physical Update Update Date/Time: 06/13/22 13:13 History and Physical has been reviewed, including an updated exam of the patient. There are NO changes in the patient's condition. Risks, benefits, and alternatives have been discussed and questions answered. Patient agrees to proceed with procedure.
[2022-06-13] MEDS: ceFAZolin 2 GM/D5W 50 ML 2 GM/50 ML BAG IVPB (13:41)
[2022-06-13] MEDS: BUPIVACAINE/EPINEPHRINE 0.5% 50 ML VIAL 10 ML INFILTRATE (14:08)
[2022-06-13 14:26] VITALS: BP 126/64; PULSE 55; RESP 11; TEMP 36.2; O2SAT 100
[2022-06-13 14:40] VITALS: BP 145/67; PULSE 56; RESP 13; O2SAT 100
[2022-06-13 14:55] VITALS: BP 122/68; PULSE 57; RESP 12; O2SAT 100
[2022-06-13 15:12] VITALS: BP 120/67; PULSE 60; RESP 16; O2SAT 100
[2022-06-13 15:42] VITALS: BP 135/78; PULSE 70; RESP 16; O2SAT 100
--- NOTE | 2022-06-13 17:24 | W.PM.PROC2 ---
Procedure Note - Detailed Date of Procedure 06/13/22 Pre-op Diagnosis left carpal tunnel syndrome Post-op Diagnosis Same Procedure Performed Left 1. Carpal tunnel release Surgeon Marck Hernandez MD Associate Director Of Nursing Ofelia Schneider PA-C Anesthesia General Findings Much less inflammation noted on this side compared to the contralateral side. Description of Procedure Operative details. After sedation was administer, the hand was prepped and draped in the usual sterile fashion. The proposed incision was marked using typical anatomic landmarks. 4ML 0.5% Marcaine with epinephrine was injected along the incision line and at the distal forearm. The limb was exsanguinated and the tourniquet inflated to 250 millimeters of mercury. A longitudinal incision was taken sharply. Dissection was brought down to the transverse carpal ligament. Under direct vision the ligament was incised sharply. The proximal release was carried out with dissection scissors. The contents of the carpal canal were protected with a Wimberley elevator. The transverse carpal ligament was confirmed to be widely patent. Sterile dressing was applied with a soft splint at the wrist. The patient was extubated and brought to the recovery room in stable condition. Estimated Blood Loss -1.0 Tourniquet Time 4 Pathology None sent Complications No immediate complications Condition Stable Disposition PACU [facility] Billing Surgery - Charge Forward: Surgery Billing
== END 2022-06-13 15:45 | disposition home or self-care (01) ==
PROVIDERS: PCP Family Medicine; Visit Provider Orthopaedic Surgery
PROC: (CPT 64721; principal; 2022-06-13 13:30)
DX: G56.02 Carpal tunnel syndrome, left upper limb (principal); I25.10 Atherosclerotic heart disease of native coronary artery without angina pectoris; K21.9 Gastro-esophageal reflux disease without esophagitis; I25.2 Old myocardial infarction; I10 Essential (primary) hypertension; E78.5 Hyperlipidemia, unspecified; Z79.82 Long term (current) use of aspirin; Z87.891 Personal history of nicotine dependence
CPT/HCPCS: 64721; A9270; J0690; J1100; J1885; J2405; J2704; J3010; J7120

== ENCOUNTER 2022-07-20 12:33 | Outpatient (CLI) | payer MEDICARE, SELFPAY ==
--- NOTE | ~2022-07-20 | MR_ITS ---
EXAMINATION: MR cervical spine wo/w con DATE: 07/20/2022 13:53 INDICATION: Cervical spondylosis. Neck pain. TECHNIQUE: Magnetic resonance imaging (MRI) of the cervical spine was performed without and with 12 m L MultiHance intravenous contrast. COMPARISON: Cervical spine MRI 02/06/2021 FINDINGS: There is 3 mm anterolisthesis of C3 on C4 and 4 mm anterolisthesis of C4 on C5. There are c hanges of anterior fusion procedures at C3-C4 and C5-C6. Vertebral body heights are normal. There is moderately decreased disc height at C4-C5 and severely decreased disc height at C6-C7. There is incre ased T2-weighted signal intensity in the spinal cord at C4-C5, consistent with myelomalacia. The foll owing disc levels are specifically discussed: C2-C3: The disc does not extend beyond the endplate margin. There is mild left uncovertebral joint os teoarthritis. There is severe bilateral facet joint osteoarthritis. There is mild bilateral neural fo raminal stenosis. There is no central canal stenosis. C3-C4: There is mild bilateral uncovertebral joint hypertrophy. There is moderate bilateral facet marisol nt hypertrophy. There is mild bilateral neural foraminal stenosis. There is no central canal stenosis . C4-C5: The disc is bulging with superimposed central extrusion. There is severe bilateral uncovertebr al joint hypertrophy. There is severe bilateral facet joint osteoarthritis. There is moderate bilater al neural foraminal stenosis. There is moderate central canal stenosis with ventral and dorsal indent ation of the spinal cord and increased signal in the cord. C5-C6: There is mild bilateral uncovertebral joint hypertrophy. There is mild bilateral facet joint o steoarthritis. There is no neural foraminal stenosis. There is no central canal stenosis. C6-C7: The disc is bulging. There is severe bilateral uncovertebral joint osteoarthritis. There is mo derate and severe left facet joint osteoarthritis. There is mild bilateral neural foraminal stenosis. There is mild central canal stenosis. C7-T1: The disc does not extend beyond the endplate margin. There is no uncovertebral joint osteoarth ritis. There is severe bilateral facet joint osteoarthritis. There is mild bilateral neural foraminal stenosis. There is no central canal stenosis. IMPRESSION: 1. 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 2. Severe cervical spondylosis. 3. Anterior fusion procedures at C3-C4 and C5-C6. Reviewed, dictated and finalized at location A.
== END 2022-07-20 12:34 ==
LOC: GOSHIMG 12:34
PROVIDERS: PCP Family Medicine; Visit Provider Neurological Surgery
DX: M47.812 Spondylosis without myelopathy or radiculopathy, cervical region (principal); G95.89 Other specified diseases of spinal cord; Z98.1 Arthrodesis status
CPT/HCPCS: 72156; A9577

== ENCOUNTER 2022-08-11 11:38 | Outpatient (CLI) | payer MEDICARE, SELFPAY ==
--- NOTE | ~2022-08-11 | XR_ITS ---
AP and lateral views of the right hip Clinical history: Pain Findings: No acute fracture or dislocation is seen. Osseous alignment is anatomic. There is minimal d egenerative change of the right hip joint and right SI joint. Soft tissues are unremarkable. Impression: Mild degenerative changes, as above. Reviewed, dictated and finalized at location . Impression: Mild degenerative changes, as above.
== END 2022-08-11 11:39 | disposition home or self-care (01) ==
PROVIDERS: PCP Family Medicine; Visit Provider Family Medicine
DX: M25.551 Pain in right hip (principal)
CPT/HCPCS: 73502

== ENCOUNTER 2022-08-15 10:57 | Outpatient (CLI) | payer MEDICARE, SELFPAY ==
--- NOTE | ~2022-08-15 | CT_ITS ---
EXAMINATION: CT cervical spine wo con DATE: 08/15/2022 11:27 INDICATION: Cervical spinal stenosis. Numbness and tingling in the upper and lower extremities. TECHNIQUE: Computed tomography (CT) of the cervical spine was performed without intravenous contrast. Automated exposure control and iterative reconstruction technique were employed. The dose-length pro duct was 349.03 mGy-cm. COMPARISON: Cervical spine MRI 07/20/2022 FINDINGS: There is mild scarring at the lung apices. There is kyphosis of cervical spine. There is 3 mm anterolisthesis of C3 on C4 and C4 on C5. There are changes of anterior fusion procedure at C3-C4 with healed interbody bone graft and anterior plate and screws. There are changes of anterior fusion procedure at C5-C6 with healed interbody bone graft and anterior plate and screws. Vertebral body hei ghts are normal. There is moderately decreased disc height at C4-C5 and severely decreased disc heigh t at C6-C7. The following disc levels are specifically discussed: C2-C3: There is moderate bilateral uncovertebral joint osteoarthritis. There is severe bilateral face t joint osteoarthritis. There is mild bilateral neural foraminal stenosis. There is no central canal stenosis. C3-C4: There is mild left uncovertebral joint hypertrophy. There is mild bilateral facet joint hypert rophy. There is mild bilateral neural foraminal stenosis. There is no central canal stenosis. C4-C5: There is severe right and mild left uncovertebral joint osteoarthritis. There is severe bilate ral facet joint osteoarthritis. There is mild bilateral neural foraminal stenosis. There is mild cent ral canal stenosis. C5-C6: There is no uncovertebral joint hypertrophy. There is no facet joint hypertrophy. There is no neural foraminal stenosis. There is no central canal stenosis. C6-C7: There is severe bilateral uncovertebral joint osteoarthritis. There is mild bilateral facet paul int osteoarthritis. There is mild bilateral neural foraminal stenosis. There is mild central canal st enosis. C7-T1: There is no uncovertebral joint osteoarthritis. There is severe right and moderate left facet joint osteoarthritis. There is mild right neural foraminal stenosis. There is no central canal stenos is. IMPRESSION: 1. Severe cervical spondylosis. 2. Anterior fusion procedures at C3-C4 and C5-C6. Reviewed, dictated and finalized at location A.
== END 2022-08-15 10:58 | disposition home or self-care (01) ==
PROVIDERS: PCP Family Medicine
DX: M48.02 Spinal stenosis, cervical region (principal); M47.816 Spondylosis without myelopathy or radiculopathy, lumbar region; Z98.1 Arthrodesis status
CPT/HCPCS: 72125

== ENCOUNTER 2022-08-17 08:38 | Outpatient (CLI) | payer MEDICARE, SELFPAY ==
--- NOTE | ~2022-08-17 | MR_ITS ---
MRI of the lumbar spine Clinical History: Spondylosis Technique: Axial T2-weighted images, and sagittal T1-weighted, T2-weighted, and T2 fat-sat images wer e acquired. Following intravenous administration of 13 cc MultiHance gadolinium, T1-weighted fat-sat imaging was performed in the axial and sagittal planes. Findings: There is no acute fracture or lumbar spine. Probable minimal grade 1 retrolisthesis of L2 o itzel L3, and of L3 over L4. There is extensive marrow edema in the L3, L4, L5 vertebral bodies, probab ly related to underlying degenerative disc change. At L1-L2, there is moderate facet arthropathy, especially on the right side, without significant disc bulge or herniation. No spinal canal stenosis or neural foraminal narrowing. At L2-L3, there is moderate to advanced degenerative disc narrowing. There is mild diffuse disc bulge with mild facet arthropathy. No spinal canal stenosis. No definite neural foraminal narrowing. L3-L4, there is severe degenerative disc narrowing. There is mild diffuse disc bulge and advanced fac et arthropathy. No lalit central canal stenosis. There is severe bilateral neural foraminal narrowing . At L4-L5, there is advanced degenerative disc narrowing with diffuse disc bulge and severe facet arth ropathy. There is right lateral recess stenosis. There is severe bilateral neural foraminal narrowing , right worse than left. At L5-S1, there is degenerative disc narrowing with diffuse disc bulge and advanced facet arthropathy . No spinal canal stenosis. There is severe bilateral neural foraminal narrowing. Paravertebral soft tissues are unremarkable. No suspicious postcontrast enhancement identified. Impression: Severe bilateral neural foraminal narrowing at L3-L4, L4-L5, L5-S1. Additional degenerative changes, as above. Reviewed, dictated and finalized at [facility]. Impression: Severe bilateral neural foraminal narrowing at L3-L4, L4-L5, L5-S1. Additional degenerative changes, as above.
== END 2022-08-17 08:39 | disposition home or self-care (01) ==
PROVIDERS: PCP Family Medicine
DX: M48.02 Spinal stenosis, cervical region (principal); M47.816 Spondylosis without myelopathy or radiculopathy, lumbar region; M48.07 Spinal stenosis, lumbosacral region
CPT/HCPCS: 72158; A9577

== ENCOUNTER 2022-09-20 14:28 | Inpatient (IN) | payer MEDICARE, SELFPAY ==
[2022-09-20] VITALS (10 sets, daily range): BP systolic 134–151; BP diastolic 57–72; PULSE 65–99; RESP 16–19; TEMP 36.6–37.4; O2SAT 98–100; BMI 19.5
--- NOTE | ~2022-09-20 | XR_ITS ---
EXAMINATION: XR fl Dobhoff insert/rad w img DATE: 09/22/2022 14:21 INDICATION: Dysphagia. TECHNIQUE: I placed a nasoenteric tube under fluoroscopic guidance. The number of images was 1. The f luoroscopy exposure time was 1.2 minutes. COMPARISON: Chest CT 08/24/2011 FINDINGS: The nasoenteric tube tip is in the stomach. IMPRESSION: 1. Fluoroscopy guided nasoenteric tube placement with tip in the stomach. Reviewed, dictated and finalized at location A.
--- NOTE | ~2022-09-20 | XR_ITS ---
EXAMINATION: XR barium swallow modified DATE: 09/21/2022 09:41 INDICATION: Dysphagia. TECHNIQUE: The patient was given barium-containing material of multiple consistencies to swallow by t ivis speech pathologist while I performed fluoroscopy. Fluoroscopy exposure time was 0.9 minutes. The n umber of fluoroscopy images saved to the PACS was 1. Dose-area product was 0.645 Gy-cm^2. FINDINGS: There are changes of anterior fusion procedure from C3 to C6 with anterior plate and screws. There is a reduced laryngeal elevation, reduced laryngeal adduction, reduced tongue base retraction, reduced pharyngeal squeeze, vallecular residue, and piriform sinus residue. There is laryngeal penetration an d aspiration. IMPRESSION: 1. Laryngeal penetration and aspiration. 2. Please refer to the speech therapy report for recommendations. Reviewed, dictated and finalized at location A.
--- NOTE | ~2022-09-20 | XR_ITS ---
EXAMINATION: XR chest 1V portable INDICATION: Pneumonia and shortness of breath TECHNIQUE: Portable AP chest at 0504 hours COMPARISON: 09/20/2022 FINDINGS: Airspace opacities of the left mid and lower lung zones persist without significant change. No pleural effusion or pneumothorax. The cardiomediastinal silhouette is normal. IMPRESSION: 1. Stable left basilar airspace opacity, consistent with atelectasis versus pneumonia. Reviewed, dictated and finalized at location A. IMPRESSION: 1. Stable left basilar airspace opacity, consistent with atelectasis versus pne umonia.
--- NOTE | ~2022-09-20 | XR_ITS ---
EXAMINATION: XR barium swallow modified DATE: 09/28/2022 09:58 INDICATION: Dysphagia. TECHNIQUE: The patient was given barium-containing material of multiple consistencies to swallow by t he speech pathologist while I performed fluoroscopy. Fluoroscopy exposure time was 0.9 minutes. The n umber of fluoroscopy images saved to the PACS was 1. Dose-area product was 0.668 Gy-cm^2. FINDINGS: There is reduced laryngeal elevation, reduced tongue base retraction, vallecular residue, piriform si nus residue, laryngeal penetration, and aspiration. IMPRESSION: 1. Laryngeal penetration and aspiration. 2. Please refer to the speech therapy report for recommendations. Reviewed, dictated and finalized at location A.
--- NOTE | ~2022-09-20 | XR_ITS ---
EXAMINATION: XR barium swallow modified DATE: 09/25/2022 09:26 INDICATION: Dysphagia. TECHNIQUE: The patient was given barium-containing material of multiple consistencies to swallow by t ivis speech pathologist while I performed fluoroscopy. Fluoroscopy exposure time was 1.5 minutes. The n umber of fluoroscopy images saved to the PACS was 1. Dose-area product was 1.072 Gy-cm^2. FINDINGS: There are changes of anterior fusion procedure from C3 to C6. There is reduced laryngeal elevation, r educed tongue base retraction, and vallecular residue. There is laryngeal penetration. There is aspir ation with thin liquids and pudding thick liquids. IMPRESSION: 1. Laryngeal penetration and aspiration. 2. Please refer to the speech therapy report for recommendations. Reviewed, dictated and finalized at location A.
--- NOTE | ~2022-09-20 | MR_ITS ---
EXAMINATION: MR brain/brain stem wo con DATE: 09/28/2022 12:10 INDICATION: Dysphagia. TECHNIQUE: Magnetic resonance imaging (MRI) of the brain and brainstem was performed without intraven ous contrast. COMPARISON: None. FINDINGS: There are scattered areas of nonspecific increased T2-weighted signal intensity in the cere bral white matter, which is within normal limits for the patient's age. There is no intracranial hemo rrhage, acute infarction, or abnormal intracranial mass lesion. The ventricles are normal in size. Th ere are likely changes of left ocular lens replacement surgery. The paranasal sinuses are clear. The mastoid air cells are normal. IMPRESSION: 1. Normal aging brain. Reviewed, dictated and finalized at location A. IMPRESSION: 1. Normal aging brain.
--- NOTE | ~2022-09-20 | XR_ITS ---
XR chest 1V portable DATE: 09/20/2022 15:00 INDICATION: Cough and shortness of breath for 2 months TECHNIQUE: Portable AP chest on 09/20/2022 at 1457 hours COMPARISON: 12/12/2007 two-view chest FINDINGS: There is patchy infiltrate in the left mid and lower lung field. The right lung appears marya ar. No pleural effusion or pulmonary vascular congestion or pneumothorax. Normal heart size. Degenerative spurring of thoracic spine. There are 2 suture anchor devices overlying the left humeral head. IMPRESSION: Patchy left mid and lower lung field infiltrate suggesting left lower lobe pneumonia Reviewed, dictated and finalized at location [] IMPRESSION: Patchy left mid and lower lung field infiltrate suggesting left low er lobe pneumonia
--- NOTE | ~2022-09-20 | CT_ITS ---
EXAMINATION: CT soft tissue neck w con DATE: 09/20/2022 15:26 INDICATION: Dysphagia. TECHNIQUE: Computed tomography (CT) of the neck was performed with 75 mL Omnipaque-350 intravenous co ntrast. Automated exposure control and iterative reconstruction technique were employed. The dose-earl gth product was 534.12 mGy-cm. COMPARISON: CT cervical spine 08/15/2022, MRI 07/20/2022 FINDINGS: There is mild scarring at the lung apices. There are groundglass opacities associated with septal thickening in left upper lobe and left lower lobe. There is plaque in the proximal internal ca rotid arteries with 50% stenosis relative to normal distal artery lumen diameter on the right and les s than 50% stenosis relative to normal distal artery lumen diameter on the left. There are changes of anterior fusion procedure from C3 to C6 with revision from 08/15/2022. There is fat stranding in right anterolateral neck, consistent with changes of recent surgery. There is soft tissue swelling anterio r to the cervical spine in the area of recent surgery. At T2 and T3, there is posterior wall thickeni ng of the esophagus. There are likely changes of left ocular lens replacement surgery. IMPRESSION: 1. Posterior wall thickening of the esophagus at T2 and T3, new from 07/20/2022, likely inflammation. 2. Groundglass opacities and septal thickening in left upper lobe and superior segment left lower lob e, consistent with pulmonary edema versus pneumonia. Reviewed, dictated and finalized at location A. IMPRESSION: 1. Posterior wall thickening of the esophagus at T2 and T3, new from 07/20/2022, likely inflammation. 2. Groundglass opacities and septal thickening in left upper lobe and superior segment left lower lobe, consistent with pulmonary edema versus pneumonia.
--- NOTE | ~2022-09-20 | XR_ITS ---
EXAMINATION: XR fl Dobhoff insert/rad w img DATE: 09/25/2022 13:13 INDICATION: Dysphagia. TECHNIQUE: I placed a nasoenteric tube under fluoroscopic guidance. The number of images was 1. The f luoroscopy exposure time was 1.2 minutes. COMPARISON: None. FINDINGS: The nasoenteric tube tip is in the stomach. IMPRESSION: 1. Fluoroscopy guided nasoenteric tube placement with tip in the stomach. Reviewed, dictated and finalized at location A.
--- NOTE | 2022-09-20 14:52 | ECG_ITS ---
Measurements Intervals [place] Rate: 69 P: 74 ID: [id number] QRS: 31 QRSD: 93 T: 60 QT: 376 QTc: 404 Interpretive Statements SINUS RHYTHM COMPARED TO ECG 05/05/2022 09:52:37 NO SIGNIFICANT CHANGES Electronically Signed On 09-21-2022 10:43:01 CDT by Luis Boone M.D.
[2022-09-20 14:53] LABS: Basophils Percent Auto 0.4 % (0.2-1.2); Eosinophils Absolute Auto 0.2 K/mm3 (0-0.3); Hematocrit 27.6 % (42.0-52.0); Hemoglobin 9.2 g/dL (14.0-18.0); Immature Granulocyte Absolute 0.05 K/mm3 (0.00-0.031); Immature Granulocyte Percent A 0.7 % (0-0.5); Lymphocytes Absolute Auto 1.11 K/mm3 (0.9-3.2); Mean Corpuscular HGB Conc 33.3 g/dl (32-36); Mean Corpuscular Hemoglobin 30.4 pg (26-34); Mean Corpuscular Volume 91.1 fl (80-100); Mean Platelet Volume 8.2 fl (7.4-10.4); Monocytes Absolute Auto 0.6 K/mm3 (0.1-0.6); Monocytes Percent Auto 8.1 % (2.6-8.5); Neutrophils Absolute Auto 5.5 K/mm3 (1.3-6.7); Neutrophils Percent Auto 73.8 % (45.5-73.1); Platelet Count Result 290 k/mm3 (150-375); Red Blood Count 3.03 M/mm3 (4.6-6.20); Red Cell Distribution Width 13.1 % (11.5-14.5); White Blood Count 7.4 K/mm3 (4.5-10.0)
[2022-09-20 15:04] LABS: Alanine Aminotransferase 39 U/L (6-50); Albumin Level 3.7 g/dL (3.5-5.1); Alkaline Phosphatase 106 U/L (38-126); Anion Gap 4 mmol/L (8-16); Aspartate Amino Transferase 28 U/L (17-59); Bilirubin,Total 0.4 mg/dL (0.2-1.3); Blood Urea Nitrogen 16 mg/dL (9-20); Calcium 8.6 mg/dL (8.4-10.2); Carbon Dioxide 30 mmol/L (22-30); Chloride 97 mmol/L (98-107); Estimated CRCL calculation 67 ml/min; Estimated Glomerular Filt Rate > 60; Glucose 109 mg/dL (65-110); INR 1.3; Potassium 4.1 mmol/L (3.4-5.0); Prothrombin Time 16.5 Seconds (11.1-14.7); Sodium 131 mmol/L (137-145)
[2022-09-20 15:05] LABS: Partial Thromboplastin Time 45.4 SECONDS (22.3-36.8)
--- NOTE | 2022-09-20 15:06 | ED.GENADULT ---
HPI - General Adult General Chief complaint: Shortness of Breath/Dyspnea Stated complaint: difficulty swollowing pills/SOB Time Seen by Provider: 09/20/22 14:36 History of Present Illness HPI narrative: 71-year-old male presented emerged department for evaluation of increased difficulty swallowing. Patient had a cervical surgery done on August 16 at [facility] and had a bleeding complication where he had a large hematoma that needed to be drained. Patient was ultimately intubated and stayed in the ICU. Patient was discharged on September 08. Since being home patient reports he is still having some difficulty swallowing. Patient has had follow-up with Dr. Mcintyre previously and is scheduled to have an EGD by Dr. Li. Patient does have follow-up tomorrow with Dr. Cabrera. Patient's primary complaint is his inability to take his pills. Related Data Home Medications Medication Instructions Recorded Confirmed ezetimibe 10 mg tablet 10 mg PO DAILY 07/16/20 09/20/22 famotidine 20 mg PO DAILY 07/16/20 09/20/22 latanoprost 0.005 % eye drops 1 drp EACH EYE QPM 07/16/20 09/20/22 lisinopril 20 2 tablet PO DAILY 07/16/20 09/20/22 mg-hydrochlorothiazide 25 mg tablet omeprazole 20 mg capsule,delayed 20 mg PO DAILY 07/16/20 09/20/22 release pravastatin 80 mg tablet 80 mg PO HS 07/16/20 09/20/22 gabapentin 300 mg capsule 300 mg PO TID 04/22/21 09/20/22 carvedilol 12.5 mg tablet 12.5 mg PO HS 05/25/21 09/20/22 trazodone 50 mg tablet 50 mg PO HS PRN Insomnia 05/04/22 09/20/22 apixaban 5 mg tablet 5 mg PO BID 09/20/22 09/20/22 diltiazem HCl 240 mg 240 mg PO DAILY 09/20/22 09/20/22 capsule,extended release 24 hr Allergies Allergy/AdvReac Type Severity Reaction Status Date / Time morphine Allergy Unknown Itching/JASON Verified 09/20/22 14:44 H Review of Systems Review of Systems: All systems reviewed & are unremarkable except as noted in HPI and below PMFSH Past Medical History Medical History (Updated 09/20/22 @ 16:13 by Maciel Ruby MD) Anxiety about health Colin's esophagus CAD (coronary artery disease) Cervical radiculopathy Chronic GERD Essential (primary) hypertension Generalized osteoarthritis H/O acute myocardial infarction 1994, no stent placed, no issues History of stress test Hypercholesteremia Hypertension Old myocardial infarction Other spondylosis with radiculopathy, lumbar region Surgical History Surgical History H/O cervical discectomy H/O inguinal hernia repair right side, w mesh davinci assisted 05/31/21 H/O repair of rotator cuff History of carpal tunnel release (~05/11/22) Right History of carpal tunnel release (~06/13/22) Left History of nasal surgery History of orchiectomy S/P carpal tunnel release Family History Family History Father Acute myocardial infarction Mother Heart disease Other Family history of congenital heart disease Hypertension Social History Social History (Updated 08/23/22 @ 09:33 by Selena Slaughter MA) Smoking packs per day: 1.5 Smoking cigarettes per day: 30.0 Years smoked: 40 Smoking pack-years: 60.00 Smoking status: Former smoker Tobacco type: cigarettes Alcohol intake: current Drinks per week: 2 Alcohol use details: beer Substance use: never Substance use type: does not use Lack of Transportation: No Lack of Food: Never True Current Housing: I Have Housing Concerned About Future Housing: No Difficulty Paying Gas/Electric Bills: No Difficulty Paying for Meds: No Currently Unemployed: No Education: High School Diploma/GED Difficulty w/ Childcare or Family Care: No Living arrangements: with family Occupation/Education: retired Gender identity (if verbalized by the patient): Male Sexual Orientation (if Verbalized by the Patient): Straight or Heterosexual Spiritual care concerns: No Exam N
[2022-09-20] MEDS: SODIUM CHLORIDE 0.9% IV 1,000 ML 250 ML IV CONT (15:31)
[2022-09-20 15:39] LABS: Influenza A QL RT-PCR Negative (Negative); Influenza B QL RT-PCR Negative (Negative); RSV RNA, RT-PCR Negative (Negative); SARS-CoV-2 RNA PCR Negative (Negative)
[2022-09-20] MEDS: AZITHROMYCIN 500 MG/NS 250 ML 500 MG/250 ML BAG 250 MG IVPB (16:45)
--- NOTE | 2022-09-20 18:32 | PC.NURSE ---
This patient, Torres Redmond, was admitted to Medical Room 342-01. Patient/family oriented to hospital policies and general routines including ID bracelet, bed and alarms, visiting hours, pain management, procedures, bathroom and other care routines, personal items, smoking policy, room service/diet, and visiting hours. Information on how to activate the Rapid Response Team has been discussed. Patient/Family are encouraged to report perceived risks to care and to ask questions if they do not understand what they are told or what they should do.
--- NOTE | 2022-09-20 19:14 | PM.IMHP ---
H&P: HPI History of Present Illness Date/Time: 09/20/22 19:14 Chief Complaint: shortness of breath Narrative: this is a 71-year-old male patient who came to the emergency room due to increased difficulty with swallowing. The patient had a cervical surgery performed at [facility] on August 16 and had a bleeding complication due to a large hematoma to his neck that needed to be drained. The patient was ultimately intubated state in the ICU. The patient was discharged on September 08. Since the patient has been home he has been having difficulty swallowing. The patient has seen Dr. Mcintyre in the past. The patient is scheduled to have an EGD by Dr. Li. as soft tissue neck CT was read as the following1. Posterior wall thickening of the esophagus at T2 and T3, new from 07/20/2022, likely inflammation. 2. Groundglass opacities and septal thickening in left upper lobe and superior segment left lower lobe, consistent with pulmonary edema versus pneumonia. chest x-ray was read asMPRESSION: Patchy left mid and lower lung field infiltrate suggesting left lower lobe pneumonia? the patient was given a azithromycin Rocephin. The patient is being admitted to observation status on the date of service of 09/20/2022. Review of Systems Review of Systems: All systems reviewed & are unremarkable except as noted in HPI and below Constitutional: Constitutional: Reports as per HPI and Reports no additional constitutional complaints Eyes: Eyes: Reports as per HPI and Reports no additional eye complaints ENT: Reports system reviewed and no additional complaints, except as documented and Reports Normal hearing present Cardiovascular: Cardiovascular: Reports no additional cardiovascular complaints Respiratory: Respiratory: Reports no additional respiratory complaints and Reports no additional respiratory complaints Gastrointestinal: Gastrointestinal: Reports as per HPI and Reports no additional gastrointestinal complaints Musculoskeletal: Musculoskeletal: Reports no additional musculoskeletal complaints Integumentary/Breasts: Skin/Breast: Reports system reviewed and no additional complaints, except as docu and Reports as per HPI Neurologic: Reports system reviewed and no additional complaints, except as documented, Reports as per HPI and Reports Normal hearing present Psychiatric: Psychiatric: Reports no additional psychiatric complaints and Reports as per HPI Endocrine: Endocrine: Reports no additional endocrine complaints Hematologic/Lymphatic: Hematologic/Lymphatic: Reports no additional hematologic/lymphatic complaints Allergic/Immunologic: Allergic/Immunologic: Reports no additional allergic/immunologic complaints [facility] Past Medical History Medical History Anxiety about health Colin's esophagus CAD (coronary artery disease) Cervical radiculopathy Chronic GERD Essential (primary) hypertension Generalized osteoarthritis H/O acute myocardial infarction 1994, no stent placed, no issues History of stress test Hypercholesteremia Hypertension Old myocardial infarction Other spondylosis with radiculopathy, lumbar region Surgical History Surgical History (Updated 09/21/22 @ 01:02 by Fracnisca Chappell NP) H/O cervical discectomy H/O inguinal hernia repair right side, w mesh davinci assisted 05/31/21 H/O repair of rotator cuff History of carpal tunnel release (~05/11/22) Right History of carpal tunnel release (~06/13/22) Left History of nasal surgery S/P carpal tunnel release Family History Family History Father Acute myocardial infarction Mother Heart disease Other Family history of congenital heart disease Hypertension Social History Social History (Updated 09/21/22 @ 00:57 by Francisca Chappell NP) Social History: The patient lives at home with his . He is retired. Code status full code Smoking packs
[2022-09-20 19:38] LABS: Appearance Urine Clear (Clear); Bilirubin Urine Negative (Negative); Blood Urine Negative (Negative); Color Urine Yellow (Yellow); Glucose Urine UA Negative (Negative); Ketones Urine Trace mg/dL (Negative); Leukocyte Esterase Ur Negative LEU/UL (Negative); Nitrate Urine Negative (Negative); Protein Urine Negative (Negative); pH Urine 7.5 (5.0-9.0)
[2022-09-20 19:46] LABS: Specific Grav Ur 1.073 (1.001-1.035)
[2022-09-20 19:58] LABS: Add Urine Microscopic? NO
[2022-09-20] MEDS: LORazepam INJ (*CRX) 2 MG/ML VIAL 0.5 MG IV PUSH (23:15)
[2022-09-21] VITALS (11 sets, daily range): BP systolic 143–158; BP diastolic 57–73; PULSE 74–97; RESP 16–18; TEMP 36.3–37.2; O2SAT 98–100
[2022-09-21] MEDS: SODIUM CHLORIDE 0.9% IV 1,000 ML 100 ML IV CONT ×3 (01:20→21:46)
[2022-09-21] MEDS: ALBUTEROL SULFATE NEB 2.5 MG/3 ML INH INHALATION ×4 (03:32→20:26)
[2022-09-21] MEDS: IPRATROPIUM BR 0.02% INH SOLN 0.5 MG/2.5 ML VIAL INHALATION ×4 (03:32→20:26)
[2022-09-21 05:21] LABS: Basophils Percent Auto 0.2 % (0.2-1.2); Eosinophils Absolute Auto 0.1 K/mm3 (0-0.3); Eosinophils Percent Auto 2.5 % (0-4.4); Hematocrit 26.2 % (42.0-52.0); Hemoglobin 8.7 g/dL (14.0-18.0); Immature Granulocyte Absolute 0.04 K/mm3 (0.00-0.031); Immature Granulocyte Percent A 0.8 % (0-0.5); Lymphocytes Absolute Auto 0.51 K/mm3 (0.9-3.2); Lymphocytes Percent Auto 10.5 % (18.3-44.2); Mean Corpuscular HGB Conc 33.2 g/dl (32-36); Mean Corpuscular Hemoglobin 30.7 pg (26-34); Mean Corpuscular Volume 92.6 fl (80-100); Mean Platelet Volume 8.1 fl (7.4-10.4); Monocytes Absolute Auto 0.4 K/mm3 (0.1-0.6); Monocytes Percent Auto 8.2 % (2.6-8.5); Neutrophils Absolute Auto 3.8 K/mm3 (1.3-6.7); Neutrophils Percent Auto 77.8 % (45.5-73.1); Platelet Count Result 213 k/mm3 (150-375); Red Blood Count 2.83 M/mm3 (4.6-6.20); Red Cell Distribution Width 13.1 % (11.5-14.5); White Blood Count 4.9 K/mm3 (4.5-10.0)
[2022-09-21 05:36] LABS: Alanine Aminotransferase 31 U/L (6-50); Albumin Level 3.2 g/dL (3.5-5.1); Alkaline Phosphatase 95 U/L (38-126); Anion Gap 5 mmol/L (8-16); Aspartate Amino Transferase 21 U/L (17-59); Bilirubin,Total 0.5 mg/dL (0.2-1.3); Blood Urea Nitrogen 13 mg/dL (9-20); Calcium 8.4 mg/dL (8.4-10.2); Carbon Dioxide 28 mmol/L (22-30); Chloride 101 mmol/L (98-107); Estimated CRCL calculation 59 ml/min; Estimated Glomerular Filt Rate > 60; Glucose 103 mg/dL (65-110); Magnesium 1.7 mg/dL (1.6-2.3); Potassium 4.1 mmol/L (3.4-5.0); Sodium 134 mmol/L (137-145)
[2022-09-21 05:37] LABS: Lactic Acid Reflex 0.8 mmol/L (0.7-2.0)
[2022-09-21 06:07] LABS: Thyroid Stimulating Hormone Reflex 0.735 uIU/mL (0.465-4.68)
[2022-09-21] MEDS: metroNIDAZOLE 500 MG/ISO 100ML 500 MG/100 ML BAG 100 MG IVPB (11:45)
[2022-09-21] MEDS: PANTOPRAZOLE SODIUM IV 40 MG VIAL IV PUSH ×2 (11:46→21:44)
[2022-09-21] MEDS: LORazepam INJ (*CRX) 2 MG/ML VIAL 0.5 MG IV PUSH ×2 (15:42→21:42)
[2022-09-21] MEDS: AZITHROMYCIN 500 MG/NS 250 ML 500 MG/250 ML BAG 250 MG IVPB (16:28)
--- NOTE | 2022-09-21 16:52 | PCSTNOTE ---
Please refer to the Modified Barium Swallow Evaluation in the EMR.
--- NOTE | 2022-09-21 17:38 | WPDPN ---
Progress Note: A&P Assessment and Plan (1) Difficulty swallowing: Code(s): R13.10 - Dysphagia, unspecified Status: Acute Assessment and Plan: nystatin has been started. Continue pantoprazole. The patient has a modified barium swallow ordered for tomorrow. The patient was recently intubated last month and had a cervical laminectomy. The patient stated that he is having difficulty swallowing. He states that he cannot drink water but he drinks thickened liquids he does better. ?shortness of breath HPI-Narrative: ?this is a 71-year-old male patient who came to the emergency room due to increased difficulty with swallowing.? The patient had a cervical surgery performed at [facility] on August 16 and had a bleeding complication due to a large hematoma to his neck that needed to be drained.? The patient was ultimately intubated state in the ICU.? The patient was discharged on September 08.? Since the patient has been home he has been having difficulty swallowing.? The patient has seen Dr. Mcintyre in the past.? The patient is scheduled to have an EGD by Dr.? Li.? as soft tissue neck CT was read as the following1. Posterior wall thickening of the esophagus at T2 and T3, new from 07/20/2022, likely inflammation. 2. Groundglass opacities and septal thickening in left upper lobe and superior segment left lower lobe, consistent with pulmonary edema versus pneumonia. chest x-ray was read asMPRESSION: Patchy left mid and lower lung field infiltrate suggesting left lower lobe pneumonia? the patient was given a azithromycin Rocephin.? 09/21/2022 interval history: 71-year-old male with history cervical surgery and had developed hematoma status post drained, patient continued to have dysphagia and has lost 14 lb, patient was seen by speech therapist and recommended NPO, patient will be seen GI and will have EGD and may need PEG, patient is also found to have pneumonia suspect aspiration due to difficulty swallow, patient is being treated with ceftriaxone and azithromycin will add Flagyl to cover for anaerobic, will continue to monitor and further recommendation to follow. (2) Pneumonia: Code(s): J18.9 - Pneumonia, unspecified organism Status: Acute Assessment and Plan: Azithromycin Rocephin have been initiated. Continue with nebulizer treatments. Blood and sputum cultures are pending. . Posterior wall thickening of the esophagus at T2 and T3, new from 07/20/2022, likely inflammation. 2. Groundglass opacities and septal thickening in left upper lobe and superior segment left lower lobe, consistent with pulmonary edema versus pneumonia. (3) Hypercholesteremia: Code(s): E78.00 - Pure hypercholesterolemia, unspecified Status: Acute Assessment and Plan: Continue with Zetia (4) Essential (primary) hypertension: Code(s): I10 - Essential (primary) hypertension Status: Acute Assessment and Plan: continue with lisinopril hydrochlorothiazide continue with diltiazem and Coreg (5) Chronic GERD: Code(s): K21.9 - Gastro-esophageal reflux disease without esophagitis Status: Acute Assessment and Plan: pantoprazole IV Subjective Date/time seen: 09/21/22 17:38 Interval history: Chief Complaint: ?shortness of breath HPI-Narrative: ?this is a 71-year-old male patient who came to the emergency room due to increased difficulty with swallowing.? The patient had a cervical surgery performed at [facility] on August 16 and had a bleeding complication due to a large hematoma to his neck that needed to be drained.? The patient was ultimately intubated state in the ICU.? The patient was discharged on September 08.? Since the patient has been home he has been having difficulty swallowing.? The patient has seen Dr. Mcintyre in the past.? The patient is scheduled to have an EGD by Dr.? Li.? as soft tissue neck CT was read as the following1. Posterior wall thickening of the esophagus at T2 and
[2022-09-21] MEDS: METOPROLOL TARTRATE INJ 5 MG/5 ML VIAL IV PUSH (21:44)
[2022-09-21] MEDS: LATANOPROST 0.005% OP SOLN 2.5 ML BTL 1 DROP EACH EYE (21:44)
[2022-09-21] MEDS: NYSTATIN 100,000 UNITS/ML SUSP 5 ML ORAL.SUSP PO (21:44)
[2022-09-21] MEDS: ENOXAPARIN 60 MG/0.6 ML SYRINGE SUB-Q (21:45)
[2022-09-22] VITALS (11 sets, daily range): BP systolic 121–172; BP diastolic 59–77; PULSE 61–98; RESP 16–25; TEMP 36.6–36.8; O2SAT 97–100; BMI 19.5
[2022-09-22] MEDS: LORazepam INJ (*CRX) 2 MG/ML VIAL 0.5 MG IV PUSH ×3 (04:07→21:37)
[2022-09-22] MEDS: METOPROLOL TARTRATE INJ 5 MG/5 ML VIAL IV PUSH (05:56)
[2022-09-22] MEDS: SODIUM CHLORIDE 0.9% IV 1,000 ML 100 ML IV CONT (05:57)
[2022-09-22] MEDS: IPRATROPIUM BR 0.02% INH SOLN 0.5 MG/2.5 ML VIAL INHALATION ×2 (07:27→20:33)
[2022-09-22] MEDS: ALBUTEROL SULFATE NEB 2.5 MG/3 ML INH INHALATION ×2 (07:27→20:33)
--- NOTE | 2022-09-22 07:30 | WPDGICN ---
Assessment and Plan Assessment and plan (1) Difficulty swallowing: Code(s): R13.10 - Dysphagia, unspecified Status: Acute Assessment and Plan: Patient has significant swallowing difficulties ever since his neck disc surgery. Imaged CT scan imaging suggest inflammation of the upper esophagus in this area. Patient did have significant Hemoccult in a that with hematoma that was drained within last 3 weeks requiring intubation for several days. Plan for EGD to assess abnormality seen on CT scan imaging. Likely patient would benefit from NG tube feedings for brief period time to allow healing. Further recommendations may be given after endoscopy. 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 Continue PPI acid suppression long-term. Surveillance at 3 year intervals is advised. (3) H/O cervical discectomy: Code(s): Z98.890 - Other specified postprocedural states Status: Acute GI Consult Note Consult date/time: 09/22/22 07:30 Reason for consult: Dysphagia HPI: Torres Redmond is a 71 year old male I am asked to see at the request of the emergency room because of patient's dysphagia. Patient's history is significant that he has had cervical neck problems. One year ago had neck surgery. He required additional neck surgery 3 weeks ago. This was performed at [facility] on August 16. This approach was through the neck. Patient subsequently had a large hematoma that required draining. It impinged on his airway and he was intubated for 3 days. Patient states after discharge from home that he has had difficulty swallowing. He has difficulty with liquids. He has tried thickened liquids but symptoms have not improved. Currently not eating significantly at all. For this reason he returned to the emergency room Sunday and was admitted to the hospital. Modified barium swallow suggest he is at aspiration risk and non oral feedings were suggested at present. Patient states his exterior wound is beginning to heal although still somewhat swollen. He is mildly hoarse after his hospital stay. He has lost some weight since this all occurred. Patient does have a past medical history of Colin's esophagus. He has undergone screening follow-up endoscopies regularly over the many years. Most recent EGD was performed several years ago by Dr. Li and was felt to be stable. Review of Systems Review of Systems: Review of systems noncontributory. [facility], LAT[facility] Past Medical History Medical History Anxiety about health Colin's esophagus CAD (coronary artery disease) Cervical radiculopathy Chronic GERD Essential (primary) hypertension Generalized osteoarthritis H/O acute myocardial infarction 1994, no stent placed, no issues History of stress test Hypercholesteremia Hypertension Old myocardial infarction Other spondylosis with radiculopathy, lumbar region Surgical History Surgical History (Updated 09/22/22 @ 07:33 by Kody Mcintyre MD) H/O cervical discectomy H/O inguinal hernia repair right side, w mesh davinci assisted 05/31/21 H/O repair of rotator cuff History of carpal tunnel release (~05/11/22) Right History of carpal tunnel release (~06/13/22) Left History of nasal surgery S/P carpal tunnel release Family History Family History Father Acute myocardial infarction Mother Heart disease Other Family history of congenital heart disease Hypertension Social History Social History (Updated 09/21/22 @ 00:57 by Francisca Chappell NP) Social History: The patient lives at home
[2022-09-22] MEDS: PANTOPRAZOLE SODIUM IV 40 MG VIAL IV PUSH ×2 (09:11→21:37)
[2022-09-22] MEDS: NYSTATIN 100,000 UNITS/ML SUSP 5 ML ORAL.SUSP PO ×4 (09:12→21:38)
--- NOTE | 2022-09-22 11:52 | WPDANESEPPF ---
Anes - Initial Pre Proc Eval Procedure: Operation Date: 09/22/22 13:15 Proposed Procedures p Esophagogastroduodenoscopy - Kody Mcintyre MD Operation Date: 09/22/22 14:15 Proposed Procedures p Esophagogastroduodenoscopy - John Paul Leiva MD Date/Time: 09/22/22 11:52 Surgeon: Roney Heart MD Pre Op Diagnosis: Difficulty swallowing,Esophagitis,Pneumonia Patient Data Age: 71 Gender: M Height: 1.73 m Weight: 58.2 kg Last Vital Signs Temp 36.8 C 09/22/22 04:16 Pulse 83 09/22/22 07:42 Resp 18 09/22/22 07:42 BP 155/59 H 09/22/22 04:16 Pulse Ox 97 09/22/22 07:27 O2 Del Method Room Air 09/22/22 07:27 FiO2 21 09/22/22 07:27 Allergies Allergy/AdvReac Type Severity Reaction Status Date / Time morphine Allergy Unknown Itching/JASON Verified 09/22/22 11:59 H Home Medications Medication Instructions Recorded Confirmed Type ezetimibe 10 mg tablet 10 mg PO DAILY 07/16/20 09/20/22 History famotidine 20 mg PO DAILY 07/16/20 09/20/22 History latanoprost 0.005 % eye drops 1 drp EACH EYE QPM 07/16/20 09/20/22 History lisinopril 20 2 tablet PO DAILY 07/16/20 09/20/22 History mg-hydrochlorothiazide 25 mg tablet omeprazole 20 mg capsule,delayed 20 mg PO DAILY 07/16/20 09/20/22 History release pravastatin 80 mg tablet 80 mg PO HS 07/16/20 09/20/22 History gabapentin 300 mg capsule 300 mg PO TID 04/22/21 09/20/22 History carvedilol 12.5 mg tablet 12.5 mg PO HS 05/25/21 09/20/22 History trazodone 50 mg tablet 50 mg PO HS PRN Insomnia 05/04/22 09/20/22 History nitroglycerin 0.4 mg sublingual 0.4 mg sublingual Q5M PRN Chest 09/12/22 09/20/22 Rx tablet (Nitrostat) Pain #20 tabs alprazolam 0.25 mg tablet 0.25 mg PO TID PRN anxiety #30 tabs 09/20/22 09/20/22 Rx apixaban 5 mg tablet 5 mg PO BID 09/20/22 09/20/22 History diltiazem HCl 240 mg 240 mg PO DAILY 09/20/22 09/20/22 History capsule,extended release 24 hr Patient hx anesthesia problems: none Family hx anesthesia problems: none Results Review: All pre-operative results and documents have been reviewed as part of the pre-operative evaluation. [facility] Past Medical History Medical History Anxiety about health Colin's esophagus CAD (coronary artery disease) Cervical radiculopathy Chronic GERD Essential (primary) hypertension Generalized osteoarthritis H/O acute myocardial infarction 1994, no stent placed, no issues History of stress test Hypercholesteremia Hypertension Old myocardial infarction Other spondylosis with radiculopathy, lumbar region Surgical History Surgical History (Updated 09/22/22 @ 07:33 by Kody Mcintyre MD) H/O cervical discectomy H/O inguinal hernia repair right side, w mesh davinci assisted 05/31/21 H/O repair of rotator cuff History of carpal tunnel release (~05/11/22) Right History of carpal tunnel release (~06/13/22) Left History of nasal surgery S/P carpal tunnel release Family History Family History Father Acute myocardial infarction Mother Heart disease Other Family history of congenital heart disease Hypertension Social History Social History (Updated 09/21/22 @ 00:57 by Francisca Chappell NP) Social History: The patient lives at home with his . He is retired. Code status full code Smoking packs per day: 1.5 Smoking cigarettes per day: 30.0 Years smoked: 40 Smoking pack-years: 60.00 Smoking status: Former smoker Tobacco type: cigarettes Alcohol intake: current Drinks per week: 2 Alcohol use details: beer Substance use: never Substance use type: does not use Lack of Transportation: No Lack of Food: Never True Current Housing: I Have Housing Concerned About Future Housing: No Difficulty Paying Gas/Electric Bills: No Difficulty Paying for Meds: No Currently Unemployed: No Education: [employer]
[2022-09-22] MEDS: LACTATED RINGERS 1,000 ML 150 ML IV CONT (11:59)
--- NOTE | 2022-09-22 13:41 | PC.NURSE ---
Pt returned to room from GI at 1340
--- NOTE | 2022-09-22 14:03 | PCRCNOTE ---
1400 UPD not given. pt stated he was waiting for the radiologist. RT listened to pt and found clear/diminished breath sounds. stable vitals with 99% on room air.
--- NOTE | 2022-09-22 14:52 | WPDPN ---
Progress Note: A&P Assessment and Plan (1) Difficulty swallowing: Code(s): R13.10 - Dysphagia, unspecified Status: Acute Assessment and Plan: nystatin has been started. Continue pantoprazole. The patient has a modified barium swallow ordered for tomorrow. The patient was recently intubated last month and had a cervical laminectomy. The patient stated that he is having difficulty swallowing. He states that he cannot drink water but he drinks thickened liquids he does better. ?shortness of breath HPI-Narrative: ?this is a 71-year-old male patient who came to the emergency room due to increased difficulty with swallowing.? The patient had a cervical surgery performed at [facility] on August 16 and had a bleeding complication due to a large hematoma to his neck that needed to be drained.? The patient was ultimately intubated state in the ICU.? The patient was discharged on September 08.? Since the patient has been home he has been having difficulty swallowing.? The patient has seen Dr. Mcintyre in the past.? The patient is scheduled to have an EGD by Dr.? Li.? as soft tissue neck CT was read as the following1. Posterior wall thickening of the esophagus at T2 and T3, new from 07/20/2022, likely inflammation. 2. Groundglass opacities and septal thickening in left upper lobe and superior segment left lower lobe, consistent with pulmonary edema versus pneumonia. chest x-ray was read asMPRESSION: Patchy left mid and lower lung field infiltrate suggesting left lower lobe pneumonia? the patient was given a azithromycin Rocephin.? 09/22/2022 interval history: 71-year-old male with history cervical surgery and had developed hematoma status post drained, patient continued to have dysphagia and has lost 14 lb, patient was seen by speech therapist and recommended NPO, today patient was seen by GI and had a EGD showed Colin esophagus without dysplasia, and inflammation secondary to recent surgery, recommended Dobbhoff for nutrition and this will give a time for healing, patient is also found to have pneumonia suspect aspiration due to difficulty swallowing , patient is being treated with ceftriaxone and azithromycin added Flagyl to cover for anaerobic, will continue to monitor and further recommendation to follow. (2) Pneumonia: Code(s): J18.9 - Pneumonia, unspecified organism Status: Acute Assessment and Plan: Azithromycin Rocephin have been initiated. Continue with nebulizer treatments. Blood and sputum cultures are pending. . Posterior wall thickening of the esophagus at T2 and T3, new from 07/20/2022, likely inflammation. 2. Groundglass opacities and septal thickening in left upper lobe and superior segment left lower lobe, consistent with pulmonary edema versus pneumonia. (3) Hypercholesteremia: Code(s): E78.00 - Pure hypercholesterolemia, unspecified Status: Acute Assessment and Plan: Continue with Zetia (4) Essential (primary) hypertension: Code(s): I10 - Essential (primary) hypertension Status: Acute Assessment and Plan: continue with lisinopril hydrochlorothiazide continue with diltiazem and Coreg (5) Chronic GERD: Code(s): K21.9 - Gastro-esophageal reflux disease without esophagitis Status: Acute Assessment and Plan: pantoprazole IV Subjective Date/time seen: 09/22/22 14:52 Interval history: Chief Complaint: ?shortness of breath HPI-Narrative: ?this is a 71-year-old male patient who came to the emergency room due to increased difficulty with swallowing.? The patient had a cervical surgery performed at [facility] on August 16 and had a bleeding complication due to a large hematoma to his neck that needed to be drained.? The patient was ultimately intubated state in the ICU.? The patient was discharged on September 08.? Since the patient has been home he has been having difficulty swallowing.? The patient has seen Dr. Mcintyre in the past.? The patient
[2022-09-22] MEDS: AZITHROMYCIN 500 MG/NS 250 ML 500 MG/250 ML BAG 250 MG IVPB (16:42)
--- NOTE | 2022-09-22 18:09 | PC.NURSE ---
Spoke with Dr Gallegos about PO medications and transitioning to IV where possible. stopping IV Metoprolol at this time. Drapery Inspector will monitor vital signs and contact hospitalist if PRN metoprolol is needed
[2022-09-22] MEDS: LATANOPROST 0.005% OP SOLN 2.5 ML BTL 1 DROP EACH EYE (21:38)
[2022-09-22] MEDS: ENOXAPARIN 60 MG/0.6 ML SYRINGE SUB-Q (21:38)
[2022-09-23] VITALS (11 sets, daily range): BP systolic 150–165; BP diastolic 63–74; PULSE 73–91; RESP 14–18; TEMP 36.8–37.2; O2SAT 97–100
[2022-09-23] MEDS: SODIUM CHLORIDE 0.9% IV 1,000 ML 100 ML IV CONT ×2 (01:00→12:28)
[2022-09-23] MEDS: ALBUTEROL SULFATE NEB 2.5 MG/3 ML INH INHALATION ×3 (07:45→20:02)
[2022-09-23] MEDS: IPRATROPIUM BR 0.02% INH SOLN 0.5 MG/2.5 ML VIAL INHALATION ×3 (07:45→20:01)
[2022-09-23] MEDS: metroNIDAZOLE 500 MG/ISO 100ML 500 MG/100 ML BAG 100 MG IVPB ×3 (08:15→17:50)
[2022-09-23] MEDS: ENOXAPARIN 60 MG/0.6 ML SYRINGE SUB-Q ×2 (08:16→21:37)
[2022-09-23] MEDS: PANTOPRAZOLE SODIUM IV 40 MG VIAL IV PUSH ×2 (08:16→21:37)
[2022-09-23] MEDS: NYSTATIN 100,000 UNITS/ML SUSP 5 ML ORAL.SUSP PO ×4 (08:16→21:37)
[2022-09-23] MEDS: LORazepam INJ (*CRX) 2 MG/ML VIAL 0.5 MG IV PUSH ×3 (08:30→21:37)
--- NOTE | 2022-09-23 10:53 | WPDPN ---
Progress Note: A&P Assessment and Plan (1) Difficulty swallowing: Code(s): R13.10 - Dysphagia, unspecified Status: Acute Assessment and Plan: nystatin has been started. Continue pantoprazole. The patient has a modified barium swallow ordered for tomorrow. The patient was recently intubated last month and had a cervical laminectomy. The patient stated that he is having difficulty swallowing. He states that he cannot drink water but he drinks thickened liquids he does better. ?shortness of breath HPI-Narrative: ?this is a 71-year-old male patient who came to the emergency room due to increased difficulty with swallowing.? The patient had a cervical surgery performed at [facility] on August 16 and had a bleeding complication due to a large hematoma to his neck that needed to be drained.? The patient was ultimately intubated state in the ICU.? The patient was discharged on September 08.? Since the patient has been home he has been having difficulty swallowing.? The patient has seen Dr. Mcintyre in the past.? The patient is scheduled to have an EGD by Dr.? Li.? as soft tissue neck CT was read as the following1. Posterior wall thickening of the esophagus at T2 and T3, new from 07/20/2022, likely inflammation. 2. Groundglass opacities and septal thickening in left upper lobe and superior segment left lower lobe, consistent with pulmonary edema versus pneumonia. chest x-ray was read asMPRESSION: Patchy left mid and lower lung field infiltrate suggesting left lower lobe pneumonia? the patient was given a azithromycin Rocephin.? 09/23/2022 interval history: 71-year-old male with history cervical surgery and had developed hematoma status post drained, patient continued to have dysphagia and has lost 14 lb, patient was seen by speech therapist and recommended NPO, on 09/22 patient was seen by GI and had a EGD showed Colin esophagus without dysplasia, and inflammation secondary to recent surgery, recommended Dobbhoff for nutrition and this will give a time for healing, patient is tolerating tube feeding will advance the diet to 70 cc/hour as tolerated, patient is also found to have pneumonia suspect aspiration due to difficulty swallowing , patient is being treated with ceftriaxone and azithromycin added Flagyl to cover for anaerobic, will continue to monitor and further recommendation to follow. (2) Pneumonia: Code(s): J18.9 - Pneumonia, unspecified organism Status: Acute Assessment and Plan: Azithromycin Rocephin have been initiated. Continue with nebulizer treatments. Blood and sputum cultures are pending. . Posterior wall thickening of the esophagus at T2 and T3, new from 07/20/2022, likely inflammation. 2. Groundglass opacities and septal thickening in left upper lobe and superior segment left lower lobe, consistent with pulmonary edema versus pneumonia. (3) Hypercholesteremia: Code(s): E78.00 - Pure hypercholesterolemia, unspecified Status: Acute Assessment and Plan: Continue with Zetia (4) Essential (primary) hypertension: Code(s): I10 - Essential (primary) hypertension Status: Acute Assessment and Plan: continue with lisinopril hydrochlorothiazide continue with diltiazem and Coreg (5) Chronic GERD: Code(s): K21.9 - Gastro-esophageal reflux disease without esophagitis Status: Acute Assessment and Plan: pantoprazole IV Subjective Date/time seen: 09/23/22 10:53 Interval history: Chief Complaint: ?shortness of breath HPI-Narrative: ?this is a 71-year-old male patient who came to the emergency room due to increased difficulty with swallowing.? The patient had a cervical surgery performed at [facility] on August 16 and had a bleeding complication due to a large hematoma to his neck that needed to be drained.? The patient was ultimately intubated state in the ICU.? The patient was discharged on September 08.? Since the patient has been home he has been
[2022-09-23] MEDS: AZITHROMYCIN 500 MG/NS 250 ML 500 MG/250 ML BAG 250 MG IVPB (16:32)
--- NOTE | 2022-09-23 17:49 | WPDGIPROGNO ---
Progress Note: A&P Assessment and Plan (1) Difficulty swallowing: Code(s): R13.10 - Dysphagia, unspecified Status: Acute Assessment and Plan: related to complication after cervical surgery when developed large hematoma and intubation DHT in place for tube feeding for now (2) H/O cervical discectomy: Code(s): Z98.890 - Other specified postprocedural states Status: Acute (3) Pneumonia: Code(s): J18.9 - Pneumonia, unspecified organism Status: Acute Assessment and Plan: on treatment (4) Weight loss: Code(s): R63.4 - Abnormal weight loss Status: Acute Assessment and Plan: he was hardly eating after surgery and lost weight continue with tube feeding for now (5) Protein calorie malnutrition: Code(s): E46 - Unspecified protein-calorie malnutrition Status: Acute Subjective Date/time seen: 09/23/22 17:49 Interval history: egd yesterday without definitive stricture but tortuous esophagus probably related to recent cervical surgery (he had complication after surgery when developed cervical hematoma that required more surgery and intubation- since with difficulty swallowing), tolerating DHT with tube feeding at 50ml/h Review of Systems Review of Systems: All systems reviewed & are unremarkable except as noted in HPI and below Exam Const: General: comfortable and no acute distress HENMT: Face/Nose/Sinus: Normal nares present Other: dht in place Eyes: General: appearance normal, both eyes and all related structures Neck: Other: recent surgery Resp: Auscultation: clear to auscultation bilaterally Cardio: Rate: regular rate Rhythm: regular rhythm GI: Inspection: non-distended GI Palp: Yes Soft to palpation and No Tenderness to palpation present (GI) Auscultation: normal bowel sounds Skin: General skin exam: no rashes or lesions noted Neuro: Speech: normal speech Motor exam (neuro): 5/5 motor strength present throughout Extrem: General: normal to inspection Psych: Mental Status: mental status grossly normal Objective Data Vital Signs Vital Signs: Vital Signs - 24 hr 09/22/22 20:29 09/22/22 20:35 09/22/22 20:35 Temperature 98 F Pulse Rate 72 80 80 Respiratory Rate 16 18 18 Blood Pressure 147/69 H Pulse Oximetry 98 97 Oxygen Delivery Room Air Fraction of Inspired Oxygen 21 09/22/22 20:00 09/23/22 04:29 09/23/22 07:45 Temperature 98.9 F Pulse Rate 75 76 Respiratory Rate 16 18 Blood Pressure 150/67 H Pulse Oximetry 99 Oxygen Delivery Room Air Fraction of Inspired Oxygen 09/23/22 07:48 09/23/22 07:58 09/23/22 14:00 Temperature 98.3 F Pulse Rate 76 79 74 Respiratory Rate 18 18 14 Blood Pressure 165/63 H Pulse Oximetry 99 99 Oxygen Delivery Room Air Fraction of Inspired Oxygen 09/23/22 14:12 09/23/22 14:26 Temperature Pulse Rate 73 75 Respiratory Rate 18 18 Blood Pressure Pulse Oximetry Oxygen Delivery Fraction of Inspired Oxygen Intake/Output Intake/Output: Intake & Output 09/20/22 09/21/22 09/22/22 09/23/22 23:59 23:59 23:59 23:59 Intake Total 300 2300 2350 2288 Output Total 125 333 446 0445 Balance 175 1950 1550 688 Meds/Results Medications: Active Medications Generic Name Dose Route Start Last Admin Trade Name Freq PRN Reason Stop Dose Admin Albuterol 2.5 mg 09/21/22 02:00 09/23/22 14:12 Albuterol Sulfate Neb 2.5 Mg/3 Ml Inh INHALATION 2.5 mg Q6HRT MURRAY Administration Enoxaparin Sodium 60 mg 09/21/22 21:00 09/23/22 08:16 Enoxaparin 60 Mg/0.6 Ml Syringe SUB-Q 60 mg Q12H MURRAY Administration Ceftriaxone Sodium 1 gm in 50 mls @ 100 mls/hr 09/20/22 16:00 09/23/22 15:08 Rocephin 1 Gm/Ns 50 Ml IVPB 100 mls/hr Q24H MURRAY Administration Azithromycin 500 mg in 250 mls @ 250 mls/hr 09/20/22 16:00 09/23/22 16:32 Zithromax IVPB 250 mls/hr Q24H MURRAY Administration Sodium Chloride 1,00
[2022-09-23] MEDS: LATANOPROST 0.005% OP SOLN 2.5 ML BTL 1 DROP EACH EYE (21:37)
[2022-09-24] VITALS (7 sets, daily range): BP systolic 151–164; BP diastolic 71–77; PULSE 74–86; RESP 16–18; TEMP 36.5–36.7; O2SAT 97–100
[2022-09-24] MEDS: metroNIDAZOLE 500 MG/ISO 100ML 500 MG/100 ML BAG 100 MG IVPB ×4 (00:53→22:38)
[2022-09-24] MEDS: SODIUM CHLORIDE 0.9% IV 1,000 ML 100 ML IV CONT ×3 (00:53→22:39)
[2022-09-24] MEDS: IPRATROPIUM BR 0.02% INH SOLN 0.5 MG/2.5 ML VIAL INHALATION ×2 (03:30→08:37)
[2022-09-24] MEDS: ALBUTEROL SULFATE NEB 2.5 MG/3 ML INH INHALATION ×2 (03:30→08:37)
[2022-09-24] MEDS: LORazepam INJ (*CRX) 2 MG/ML VIAL 0.5 MG IV PUSH ×3 (03:59→20:37)
--- NOTE | 2022-09-24 04:15 | PCRCNOTE ---
Patient's 0200 updraft treatment given at 0330 due to patient not wanting to be awakened for his 0200 treatment. RT instructed pt to contact RN if short of breath or felt he needed one. RN to RT at 0330 for treatment.
[2022-09-24] MEDS: metroNIDAZOLE 500 MG/ISO 100ML 500 MG/100 ML BAG 1000 MG IVPB (06:29)
[2022-09-24] MEDS: NYSTATIN 100,000 UNITS/ML SUSP 5 ML ORAL.SUSP PO ×4 (08:56→20:37)
[2022-09-24] MEDS: PANTOPRAZOLE SODIUM IV 40 MG VIAL IV PUSH ×2 (08:57→20:37)
[2022-09-24] MEDS: ENOXAPARIN 60 MG/0.6 ML SYRINGE SUB-Q ×2 (08:57→20:37)
--- NOTE | 2022-09-24 12:52 | WPDPN ---
Progress Note: A&P Assessment and Plan (1) Difficulty swallowing: Code(s): R13.10 - Dysphagia, unspecified Status: Acute Assessment and Plan: nystatin has been started. Continue pantoprazole. The patient has a modified barium swallow ordered for tomorrow. The patient was recently intubated last month and had a cervical laminectomy. The patient stated that he is having difficulty swallowing. He states that he cannot drink water but he drinks thickened liquids he does better. ?shortness of breath HPI-Narrative: ?this is a 71-year-old male patient who came to the emergency room due to increased difficulty with swallowing.? The patient had a cervical surgery performed at [facility] on August 16 and had a bleeding complication due to a large hematoma to his neck that needed to be drained.? The patient was ultimately intubated state in the ICU.? The patient was discharged on September 08.? Since the patient has been home he has been having difficulty swallowing.? The patient has seen Dr. Mcintyre in the past.? The patient is scheduled to have an EGD by Dr.? Li.? as soft tissue neck CT was read as the following1. Posterior wall thickening of the esophagus at T2 and T3, new from 07/20/2022, likely inflammation. 2. Groundglass opacities and septal thickening in left upper lobe and superior segment left lower lobe, consistent with pulmonary edema versus pneumonia. chest x-ray was read asMPRESSION: Patchy left mid and lower lung field infiltrate suggesting left lower lobe pneumonia? the patient was given a azithromycin Rocephin.? 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 (2) Pneumonia: Code(s): J18.9 - Pneumonia, unspecified organism Status: Acute Assessment and Plan: Azithromycin Rocephin have been initiated. Continue with nebulizer treatments. Blood and sputum cultures are pending. . Posterior wall thickening of the esophagus at T2 and T3, new from 07/20/2022, likely inflammation. 2. Groundglass opacities and septal thickening in left upper lobe and superior segment left lower lobe, consistent with pulmonary edema versus pneumonia. (3) Hypercholesteremia: Code(s): E78.00 - Pure hypercholesterolemia, unspecified Status: Acute Assessment and Plan: Continue with Zetia (4) Essential (primary) hypertension: Code(s): I10 - Essential (primary) hypertension Status: Acute Assessment and Plan: continue with lisinopril hydrochlorothiazide continue with diltiazem and Coreg (5) Chronic GERD: Code(s): K21.9 - Gastro-esophageal reflux disease without esophagitis Status: Acute Assessment and Plan: pantoprazole IV Subjective Date/time seen: 09/24/22 12:52 Interval history: HPI-Narrative: ?this is a 71-year-old male patient who came to the emergency room due to increased difficulty with swallowing.? The patient had a cervical surgery performed at [facility] on August 16 and had a bleeding complication due to a large hematoma to his neck that needed to be drained.? The patient was ultimately intubated state in the ICU.? The patient was discharged on September 08.? Since the patient has been home he h
[2022-09-24] MEDS: AZITHROMYCIN 500 MG/NS 250 ML 500 MG/250 ML BAG 250 MG IVPB (15:53)
--- NOTE | 2022-09-24 18:15 | WPDGIPROGNO ---
Progress Note: A&P Assessment and Plan (1) Difficulty swallowing: Code(s): R13.10 - Dysphagia, unspecified Status: Acute Assessment and Plan: related to complication after cervical surgery when developed large hematoma and intubation DHT in place for tube feeding for now, at goal will need speech therapy as outpatient (2) Pneumonia: Code(s): J18.9 - Pneumonia, unspecified organism Status: Acute Assessment and Plan: on treatment (3) H/O cervical discectomy: Code(s): Z98.890 - Other specified postprocedural states Status: Acute (4) Weight loss: Code(s): R63.4 - Abnormal weight loss Status: Acute Assessment and Plan: he was hardly eating after surgery and lost weight continue with tube feeding for now (5) Protein calorie malnutrition: Code(s): E46 - Unspecified protein-calorie malnutrition Status: Acute Subjective Date/time seen: 09/24/22 18:15 Interval history: no new events, still unable to swallow but tolerating tube feeding by dht at 70ml/h Review of Systems Review of Systems: All systems reviewed & are unremarkable except as noted in HPI and below Exam Const: General: comfortable and no acute distress HENMT: Face/Nose/Sinus: Normal nares present Other: dht in place Eyes: General: appearance normal, both eyes and all related structures Neck: Other: recent surgery Resp: Auscultation: clear to auscultation bilaterally Cardio: Rate: regular rate Rhythm: regular rhythm GI: Inspection: non-distended GI Palp: Yes Soft to palpation and No Tenderness to palpation present (GI) Auscultation: normal bowel sounds Skin: General skin exam: no rashes or lesions noted Neuro: Speech: normal speech Motor exam (neuro): 5/5 motor strength present throughout Extrem: General: normal to inspection Psych: Mental Status: mental status grossly normal Objective Data Vital Signs Vital Signs: Vital Signs - 24 hr 09/23/22 20:02 09/23/22 20:05 09/23/22 20:10 Temperature Pulse Rate 84 84 79 Respiratory Rate 18 18 Blood Pressure Pulse Oximetry 97 Oxygen Delivery Room Air 09/23/22 20:49 09/23/22 20:00 09/24/22 04:08 Temperature 98.4 F 97.9 F Pulse Rate 91 86 Respiratory Rate 18 18 Blood Pressure 153/74 H 151/71 H Pulse Oximetry 100 99 Oxygen Delivery Room Air 09/24/22 03:30 09/24/22 03:40 09/24/22 08:39 Temperature Pulse Rate 86 81 84 Respiratory Rate 18 18 18 Blood Pressure Pulse Oximetry Oxygen Delivery 09/24/22 08:52 09/24/22 08:50 09/24/22 14:00 Temperature 98.1 F Pulse Rate 74 78 Respiratory Rate 18 16 Blood Pressure 156/77 H Pulse Oximetry 100 Oxygen Delivery Room Air Intake/Output Intake/Output: Intake & Output 09/21/22 09/22/22 09/23/22 09/24/22 23:59 23:59 23:59 23:59 Intake Total 2300 2350 3688 2750 Output Total 588 082 1836 1725 Balance 1950 1550 1888 1025 Meds/Results Medications: Active Medications Generic Name Dose Route Start Last Admin Trade Name Freq PRN Reason Stop Dose Admin Albuterol 2.5 mg 09/24/22 08:46 Albuterol Sulfate Neb 2.5 Mg/3 Ml Inh INHALATION Q6HRT PRN Shortness Of Breath Enoxaparin Sodium 60 mg 09/21/22 21:00 09/24/22 08:57 Enoxaparin 60 Mg/0.6 Ml Syringe SUB-Q 60 mg Q12H MURRAY Administration Ceftriaxone Sodium 1 gm in 50 mls @ 100 mls/hr 09/20/22 16:00 09/24/22 17:38 Rocephin 1 Gm/Ns 50 Ml IVPB Infused Q24H MURRAY Infusion Azithromycin 500 mg in 250 mls @ 250 mls/hr 09/20/22 16:00 09/24/22 16:53 Zithromax IVPB Infused Q24H MURRAY Infusion Sodium Chloride 1,000 mls @ 100 mls/hr 09/21/22 01:15 09/24/22 14:06 Normal Saline Iv IV CONT 100 mls/hr .Q10H MURRAY Administration Metronidazole 500 mg in 100 mls @ 100 mls/hr 09/23/22 07:40 09/24/22 18:00 Flagyl 500 Mg/Iso Soln 100 Ml IVPB 100 mls/hr Q6HR MURRAY Administration Ipratropium Bromi
[2022-09-24] MEDS: LATANOPROST 0.005% OP SOLN 2.5 ML BTL 1 DROP EACH EYE (20:37)
[2022-09-25 04:59] VITALS: BP 160/88; PULSE 86; RESP 18; TEMP 36.8; O2SAT 98
[2022-09-25] MEDS: metroNIDAZOLE 500 MG/ISO 100ML 500 MG/100 ML BAG 100 MG IVPB ×3 (05:21→22:45)
[2022-09-25 05:37] LABS: Hematocrit 27.6 % (42.0-52.0); Hemoglobin 9.1 g/dL (14.0-18.0); Mean Corpuscular Hemoglobin 30.6 pg (26-34); Mean Corpuscular Volume 92.9 fl (80-100); Platelet Count Result 180 k/mm3 (150-375); Red Blood Count 2.97 M/mm3 (4.6-6.20); Red Cell Distribution Width 13.2 % (11.5-14.5); White Blood Count 3.7 K/mm3 (4.5-10.0)
[2022-09-25 05:46] LABS: Anion Gap 5 mmol/L (8-16); Blood Urea Nitrogen 8 mg/dL (9-20); Calcium 8.1 mg/dL (8.4-10.2); Carbon Dioxide 25 mmol/L (22-30); Chloride 103 mmol/L (98-107); Estimated CRCL calculation 90 ml/min; Estimated Glomerular Filt Rate > 60; Glucose 94 mg/dL (65-110); Magnesium 1.7 mg/dL (1.6-2.3); Sodium 133 mmol/L (137-145)
--- NOTE | 2022-09-25 07:24 | WPDGIPROGNO ---
Progress Note: A&P Assessment and Plan (1) Difficulty swallowing: Code(s): R13.10 - Dysphagia, unspecified Status: Acute Assessment and Plan: Patient has dysphagia. Appears to be related to recent cervical neck surgery. He had complication that complicated surgery. This is improving. Has been less than 3 weeks since his surgery. He ultimately was intubated for 3 days at [facility]. Plan for Dobbhoff tube nutrition until the swelling goes down. He did well over the weekend. But pulled the tube out. Plan to repeat modified barium swallow today. Hopefully Dobbhoff tube can be used for short interval until resolution of edema in the surgical site. Subjective Date/time seen: 09/25/22 07:24 Interval history: Patient alert this morning. Pulled go off tube out overnight. Had been tolerating it well. Feels stronger. Review of Systems Review of Systems: Review of systems noncontributory. Exam Narrative: Physical exam reveals patient be alert comfortable at rest. His voice is somewhat raspy. Lungs are clear. Heart without murmur. His neck has some swelling at incision site still. Objective Data Vital Signs Vital Signs: Vital Signs - 24 hr 09/24/22 08:39 09/24/22 08:52 09/24/22 08:50 Temperature Pulse Rate 84 74 Respiratory Rate 18 18 Blood Pressure Pulse Oximetry Oxygen Delivery Room Air 09/24/22 14:00 09/24/22 19:42 09/24/22 20:00 Temperature 98.1 F 97.7 F Pulse Rate 78 79 Respiratory Rate 16 18 Blood Pressure 156/77 H 164/73 H Pulse Oximetry 100 97 Oxygen Delivery Room Air 09/25/22 04:59 Temperature 98.2 F Pulse Rate 86 Respiratory Rate 18 Blood Pressure 160/88 H Pulse Oximetry 98 Oxygen Delivery Intake/Output Intake/Output: Intake & Output 09/22/22 09/23/22 09/24/22 09/25/22 23:59 23:59 23:59 23:59 Intake Total 2350 3688 3950 Output Total 800 1800 1725 675 Balance 1550 1888 2225 670 Meds/Results Medications: Active Medications Generic Name Dose Route Start Last Admin Trade Name Freq PRN Reason Stop Dose Admin Albuterol 2.5 mg 09/24/22 08:46 Albuterol Sulfate Neb 2.5 Mg/3 Ml Inh INHALATION Q6HRT PRN Shortness Of Breath Enoxaparin Sodium 60 mg 09/21/22 21:00 09/24/22 20:37 Enoxaparin 60 Mg/0.6 Ml Syringe SUB-Q 60 mg Q12H MURRAY Administration Ceftriaxone Sodium 1 gm in 50 mls @ 100 mls/hr 09/20/22 16:00 09/24/22 17:38 Rocephin 1 Gm/Ns 50 Ml IVPB Infused Q24H MURRAY Infusion Azithromycin 500 mg in 250 mls @ 250 mls/hr 09/20/22 16:00 09/24/22 16:53 Zithromax IVPB Infused Q24H MURRAY Infusion Sodium Chloride 1,000 mls @ 100 mls/hr 09/21/22 01:15 09/24/22 22:39 Normal Saline Iv IV CONT 100 mls/hr .Q10H MURRAY Administration Metronidazole 500 mg in 100 mls @ 100 mls/hr 09/23/22 07:40 09/25/22 05:21 Flagyl 500 Mg/Iso Soln 100 Ml IVPB 100 mls/hr Q6HR MURRAY Administration Ipratropium [place] 0.5 mg 09/24/22 08:46 Ipratropium Br 0.02% Inh Soln 0.5 Mg/2.5 Ml Vial INHALATION Q6HRT PRN Shortness Of Breath Latanoprost 1 drop 09/21/22 21:00 09/24/22 20:37 Latanoprost 0.005% Op Soln 2.5 Ml Btl EACH EYE 1 drop HS MURRAY Administration Lorazepam 0.5 mg 09/21/22 00:53 09/24/22 20:37 Lorazepam Inj (*Crx) 2 Mg/Ml Vial IV PUSH 0.5 mg Q6H PRN Administration Anxiety Nitroglycerin 0.4 mg 09/21/22 00:50 Nitroglycerin Sl 0.4 Mg Tablet SUBLINGUAL Q5M PRN Chest Pain Nystatin 5 ml 09/21/22 09:00 09/24/22 20:37 Nystatin 100,000 Units/Ml Susp 5 Ml Oral.Susp PO 5 ml QID MURRAY Administration Pantoprazole Sodium 40 mg 09/21/22 09:00 09/24/22 20:37 Pantoprazole Sodium Iv 40 Mg Vial IV PUSH 40 mg Q12HR MURRAY Administration Radiology Results: ITS Impressions Soft Tissue Neck CT 09/20/22 15:27 IMPRESSION: 1. Posterior wall thickening of the esophagus at T2 and T3, new from 07/20/2022, likely inflamma
[2022-09-25] MEDS: ENOXAPARIN 60 MG/0.6 ML SYRINGE SUB-Q ×2 (09:58→20:32)
[2022-09-25] MEDS: NYSTATIN 100,000 UNITS/ML SUSP 5 ML ORAL.SUSP PO ×2 (09:58→16:08)
[2022-09-25] MEDS: PANTOPRAZOLE SODIUM IV 40 MG VIAL IV PUSH ×2 (09:58→20:33)
--- NOTE | 2022-09-25 12:53 | WPDPN ---
Progress Note: A&P Assessment and Plan (1) Difficulty swallowing: Code(s): R13.10 - Dysphagia, unspecified Status: Acute Assessment and Plan: nystatin has been started. Continue pantoprazole. The patient has a modified barium swallow ordered for tomorrow. The patient was recently intubated last month and had a cervical laminectomy. The patient stated that he is having difficulty swallowing. He states that he cannot drink water but he drinks thickened liquids he does better. ?shortness of breath HPI-Narrative: ?this is a 71-year-old male patient who came to the emergency room due to increased difficulty with swallowing.? The patient had a cervical surgery performed at [facility] on August 16 and had a bleeding complication due to a large hematoma to his neck that needed to be drained.? The patient was ultimately intubated state in the ICU.? The patient was discharged on September 08.? Since the patient has been home he has been having difficulty swallowing.? The patient has seen Dr. Mcintyre in the past.? The patient is scheduled to have an EGD by Dr.? Li.? as soft tissue neck CT was read as the following1. Posterior wall thickening of the esophagus at T2 and T3, new from 07/20/2022, likely inflammation. 2. Groundglass opacities and septal thickening in left upper lobe and superior segment left lower lobe, consistent with pulmonary edema versus pneumonia. chest x-ray was read asMPRESSION: Patchy left mid and lower lung field infiltrate suggesting left lower lobe pneumonia? the patient was given a azithromycin Rocephin.? 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, and inflammation secondary to recent surgery, recommended Dobbhoff for nutrition and this will give a time for healing,on 09/24 patient was tolerating tube feeding on 50cc/hr advanced the diet to 70 cc/hour as tolerated, however patient pulled his Dobbhoff last night, today discussed with GI, will have ST evaluate patient and had MBS today which failed, will insert Dobbhoff again and continue tube feed, patient is also found to have pneumonia suspect aspiration due to difficulty swallowing , patient is being treated with ceftriaxone and azithromycin added Flagyl to cover for anaerobic, repeat chest x-ray showed improvement, however patient may has aspirated again when he pulled his tube out, will CPM< will continue to monitor and further recommendation to follow. (2) Pneumonia: Code(s): J18.9 - Pneumonia, unspecified organism Status: Acute Assessment and Plan: Azithromycin Rocephin have been initiated. Continue with nebulizer treatments. Blood and sputum cultures are pending. . Posterior wall thickening of the esophagus at T2 and T3, new from 07/20/2022, likely inflammation. 2. Groundglass opacities and septal thickening in left upper lobe and superior segment left lower lobe, consistent with pulmonary edema versus pneumonia. (3) Hypercholesteremia: Code(s): E78.00 - Pure hypercholesterolemia, unspecified Status: Acute Assessment and Plan: Continue with Zetia (4) Essential (primary) hypertension: Code(s): I10 - Essential (primary) hypertension Status: Acute Assessment and Plan: continue with lisinopril hydrochlorothiazide continue with diltiazem and Coreg (5) Chronic GERD: Code(s): K21.9 - Gastro-esophageal reflux disease without esophagitis Status: Acute Assessment and Plan: pantoprazole IV Subjective Date/time seen: 09/25/22 12:53 Interval history: HPI-Narrative: ?this is a 71-year-old male patient who came to the emergency room due to increased difficulty with swallowing.? The patient had a cervica
[2022-09-25 14:00] VITALS: BP 161/74; PULSE 70; RESP 14; TEMP 36.6; O2SAT 98
--- NOTE | 2022-09-25 14:27 | PC.NURSE ---
[employer] contacted Dr. Gallegos in regards to tube feedings. Placement of dobhoff has been confirmed. Dr. Gallegos okayed to restart feedings at 40mL/hr with 30mL flushes every 4 hours. Gradually increase patients feedings to previous goal rate of 70mL/hr.
[2022-09-25] MEDS: LORazepam INJ (*CRX) 2 MG/ML VIAL 0.5 MG IV PUSH (16:05)
[2022-09-25] MEDS: LATANOPROST 0.005% OP SOLN 2.5 ML BTL 1 DROP EACH EYE (20:32)
[2022-09-25] MEDS: SODIUM CHLORIDE 0.9% IV 1,000 ML 100 ML IV CONT (20:33)
[2022-09-25 22:00] VITALS: BP 169/73; PULSE 85; RESP 20; TEMP 36.4; O2SAT 99
[2022-09-26 05:44] LABS: Hematocrit 26.7 % (42.0-52.0); Hemoglobin 8.8 g/dL (14.0-18.0); Mean Corpuscular Hemoglobin 30.2 pg (26-34); Mean Corpuscular Volume 91.8 fl (80-100); Mean Platelet Volume 8.6 fl (7.4-10.4); Platelet Count Result 139 k/mm3 (150-375); Red Blood Count 2.91 M/mm3 (4.6-6.20); Red Cell Distribution Width 13.2 % (11.5-14.5)
[2022-09-26 05:54] LABS: Anion Gap 1 mmol/L (8-16); Blood Urea Nitrogen 10 mg/dL (9-20); Carbon Dioxide 30 mmol/L (22-30); Chloride 102 mmol/L (98-107); Estimated CRCL calculation 77 ml/min; Estimated Glomerular Filt Rate > 60; Glucose 125 mg/dL (65-110); Magnesium 1.6 mg/dL (1.6-2.3); Sodium 133 mmol/L (137-145)
[2022-09-26 06:00] VITALS: BP 179/86; PULSE 80; RESP 20; TEMP 36.3; O2SAT 98
[2022-09-26] MEDS: SODIUM CHLORIDE 0.9% IV 1,000 ML 100 ML IV CONT ×4 (06:09→23:57)
[2022-09-26] MEDS: metroNIDAZOLE 500 MG/ISO 100ML 500 MG/100 ML BAG 100 MG IVPB ×4 (06:10→23:57)
--- NOTE | 2022-09-26 08:11 | P.CDI_ITS ---
CDI Query Clarification Request BMI 19.5 Nutritional Diagnostic Statement Severe malnutrition related to inadequate protein intake and lack of nutrient dense foods as evidence by intake of <75% of estimated protein needs > 1 month and significant weight loss of 10% (14 lbs) in 1 month. Please refer to the comprehensive nutrition assessment for further information. Please clarify severity of protein calorie malnutrition if known: * Mild * Moderate * Severe * Other/ Unspecified <Irish Magallanes RN - Last Filed: 09/26/22 08:18> Clarified Diagnosis Clarified Diagnosis: Severe malnutrition related to inadequate protein intake and lack of nutrient dense foods as evidence by intake of <75% of estimated protein needs > 1 month and significant weight loss of 10% (14 lbs) in 1 month. <Domenico Gallegos MD - Last Filed: 10/12/22 15:10>
[2022-09-26] MEDS: NYSTATIN 100,000 UNITS/ML SUSP 5 ML ORAL.SUSP PO ×3 (08:43→16:35)
[2022-09-26] MEDS: PANTOPRAZOLE SODIUM IV 40 MG VIAL IV PUSH ×2 (08:43→20:32)
[2022-09-26] MEDS: ENOXAPARIN 60 MG/0.6 ML SYRINGE SUB-Q ×2 (08:43→20:32)
--- NOTE | 2022-09-26 09:42 | WPDGIPROGNO ---
Progress Note: A&P Assessment and Plan (1) Difficulty swallowing: Code(s): R13.10 - Dysphagia, unspecified Status: Acute Assessment and Plan: Patient with continued dysphagia. Likely related to recent surgery. Edema from the surgery versus stretching of nerves may contribute to this. Would recommend Dobbhoff tube for nutrition. Continue speech therapy exercises. Repeat modified barium swallow in a few days. Hopefully diet can be reimplanted at that time. Anticipate this to be short term as he was eating adequately prior to his neck surgery. (2) H/O cervical discectomy: Code(s): Z98.890 - Other specified postprocedural states Status: Acute Assessment and Plan: History of cervical disc surgery. He was complicated by hematoma and right neck. Patient has had difficulty swallowing since this was accomplished approximately 2-3 weeks ago. 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 Follow-up EGD and biopsies at 3 year intervals advised. Subjective Date/time seen: 09/26/22 09:42 Interval history: Patient alert comfortable at rest. Tolerating Dobbhoff tube feedings at present. His voice appears stronger today. Currently implementing exercises under direction as speech therapy. Failed modified barium swallow on presentation. Review of Systems Review of Systems: Review of systems noncontributory. Exam Narrative: Physical exam reveals patient be alert comfortable at rest. Dobbhoff tube in place. HEENT exam reveals healing wound on right lateral neck. Not too much swelling noted at present. Objective Data Vital Signs Vital Signs: Vital Signs - 24 hr 09/25/22 09:58 09/25/22 14:00 09/25/22 20:00 Temperature 97.9 F Pulse Rate 70 Respiratory Rate 14 Blood Pressure 161/74 H Pulse Oximetry 98 Oxygen Delivery Room Air Room Air 09/25/22 22:00 09/26/22 06:00 Temperature 97.5 F L 97.4 F L Pulse Rate 85 80 Respiratory Rate 20 20 Blood Pressure 169/73 H 179/86 H Pulse Oximetry 99 98 Oxygen Delivery Intake/Output Intake/Output: Intake & Output 09/23/22 09/24/22 09/25/22 09/26/22 23:59 23:59 23:59 23:59 Intake Total 3688 3950 1350 4313 Output Total 1800 1725 875 350 Balance 1888 3038 746 3963 Meds/Results Medications: Active Medications Generic Name Dose Route Start Last Admin Trade Name Freq PRN Reason Stop Dose Admin Albuterol 2.5 mg 09/24/22 08:46 Albuterol Sulfate Neb 2.5 Mg/3 Ml Inh INHALATION Q6HRT PRN Shortness Of Breath Enoxaparin Sodium 60 mg 09/21/22 21:00 09/26/22 08:43 Enoxaparin 60 Mg/0.6 Ml Syringe SUB-Q 60 mg Q12H MURRAY Administration Ceftriaxone Sodium 1 gm in 50 mls @ 100 mls/hr 09/20/22 16:00 09/25/22 16:38 Rocephin 1 Gm/Ns 50 Ml IVPB Infused Q24H MURRAY Infusion Sodium Chloride 1,000 mls @ 100 mls/hr 09/21/22 01:15 09/26/22 08:43 Normal Saline Iv IV CONT 100 mls/hr .Q10H MURRAY Administration Metronidazole 500 mg in 100 mls @ 100 mls/hr 09/23/22 07:40 09/26/22 07:10 Flagyl 500 Mg/Iso Soln 100 Ml IVPB Infused Q6HR MURRAY Infusion Ipratropium [place] 0.5 mg 09/24/22 08:46 Ipratropium Br 0.02% Inh Soln 0.5 Mg/2.5 Ml Vial INHALATION Q6HRT PRN Shortness Of Breath Latanoprost 1 drop 09/21/22 21:00 09/25/22 20:32 Latanoprost 0.005% Op Soln 2.5 Ml Btl EACH EYE 1 drop HS MURRAY Administration Lorazepam 0.5 mg 09/21/22 00:53 09/25/22 16:05 Lorazepam Inj (*Crx) 2 Mg/Ml Vial IV PUSH 0.5 mg Q6H PRN Administration Anxiety Nitroglycerin 0.4 mg 09/21/22 00:50 Nitroglycerin Sl 0.4 Mg Tablet SUBLINGUAL Q5M PRN Chest Pain Nysta
--- NOTE | 2022-09-26 13:03 | PCNFU ---
Nutrition Follow-Up Complete: Severe Malnutrition related to inadequate portein intake and lack of nutrient dense foods as evidenced by intake of < 75% of estimated protein needs > 1 month and significant weight loss of 10% (14 ibs) in 1 month. goal: Meet estimated nutritional needs patient will continue with current diet order. Pt current nutrition is Jevity 1.2 at 70 ml/hr. Last recorded weight is 58.2 kg-nursing called for new weight. Bowel Motility:+Bm reported 09/25 Labs Reviewed:Glu 125, Cr 0.6,Hct 26.7,Hgb 8.8 Meds Noted: Flagyl, Protonix Skin: WNL Additional Notes: Patient remains on Dobbhoff feedings of Jevity 1.2 at 70 ml/hr and tolerating per nursing. Tube feeding providing 1848 kcals/85 gms protein/1243 ml water. Flush 30 ml q 4 hours. MBS 09/25-failed. Discussions regarding possible PEG for home. Will monitor weight, labs, tube feeding tolerance every Sunday and Sunday.
--- NOTE | 2022-09-26 13:37 | WPDPN ---
Progress Note: A&P Assessment and Plan (1) Difficulty swallowing: Code(s): R13.10 - Dysphagia, unspecified Status: Acute Assessment and Plan: nystatin has been started. Continue pantoprazole. The patient has a modified barium swallow ordered for tomorrow. The patient was recently intubated last month and had a cervical laminectomy. The patient stated that he is having difficulty swallowing. He states that he cannot drink water but he drinks thickened liquids he does better. ?shortness of breath HPI-Narrative: ?this is a 71-year-old male patient who came to the emergency room due to increased difficulty with swallowing.? The patient had a cervical surgery performed at [facility] on August 16 and had a bleeding complication due to a large hematoma to his neck that needed to be drained.? The patient was ultimately intubated state in the ICU.? The patient was discharged on September 08.? Since the patient has been home he has been having difficulty swallowing.? The patient has seen Dr. Mcintyre in the past.? The patient is scheduled to have an EGD by Dr.? Li.? as soft tissue neck CT was read as the following1. Posterior wall thickening of the esophagus at T2 and T3, new from 07/20/2022, likely inflammation. 2. Groundglass opacities and septal thickening in left upper lobe and superior segment left lower lobe, consistent with pulmonary edema versus pneumonia. chest x-ray was read asMPRESSION: Patchy left mid and lower lung field infiltrate suggesting left lower lobe pneumonia? the patient was given a azithromycin Rocephin.? 09/26/2022 interval history:? 71-year-old male with history cervical surgery and had developed hematoma status post drained, patient continued to have dysphagia and has lost 14 lb, patient was seen by speech therapist and recommended NPO,? on 09/22? 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 patient? was tolerating tube feeding? on 50cc/hr advanced the diet to 70 cc/hour as tolerated, however on 09/25 patient pulled his Dobbhoff, discussed with GI, will have ST evaluate patient and had MBS which he rashmi, reinsert Dobbhoff again and continue tube feed, patient continued to have a Dobbhoff is tolerating tube feeding, will continue for few days and repeat the modified and further recommendation to follow. patient is also found to have pneumonia suspect aspiration due to difficulty swallowing , patient is being treated with ceftriaxone and azithromycin added Flagyl to cover for anaerobic, repeat chest x-ray on 09/25 showed improvement, however patient may has aspirated again when he pulled his tube out, will CPM<? will continue to monitor and further recommendation to follow. (2) Pneumonia: Code(s): J18.9 - Pneumonia, unspecified organism Status: Acute Assessment and Plan: Azithromycin Rocephin have been initiated. Continue with nebulizer treatments. Blood and sputum cultures are pending. . Posterior wall thickening of the esophagus at T2 and T3, new from 07/20/2022, likely inflammation. 2. Groundglass opacities and septal thickening in left upper lobe and superior segment left lower lobe, consistent with pulmonary edema versus pneumonia. (3) Hypercholesteremia: Code(s): E78.00 - Pure hypercholesterolemia, unspecified Status: Acute Assessment and Plan: Continue with Zetia (4) Essential (primary) hypertension: Code(s): I10 - Essential (primary) hypertension Status: Acute Assessment and Plan: continue with lisinopril hydrochlorothiazide continue with diltiazem and Coreg (5) Chronic GERD: Code(s): K21.9 - Gastro-esophageal reflux disease without esophagitis Status: Acute Assessment and Plan: pantoprazole IV Subjective Date/time seen: 09/26/22 13:37 Interval history: H
[2022-09-26 15:59] VITALS: BP 168/81; PULSE 81; RESP 16; TEMP 36.6; O2SAT 100
[2022-09-26] MEDS: LORazepam INJ (*CRX) 2 MG/ML VIAL 0.5 MG IV PUSH (17:27)
[2022-09-26] MEDS: LATANOPROST 0.005% OP SOLN 2.5 ML BTL 1 DROP EACH EYE (20:32)
[2022-09-26 20:49] VITALS: BP 166/76; PULSE 80; RESP 16; TEMP 36.8; O2SAT 99
[2022-09-27] MEDS: ENOXAPARIN 60 MG/0.6 ML SYRINGE SUB-Q ×2 (09:00→21:50)
[2022-09-27] MEDS: NYSTATIN 100,000 UNITS/ML SUSP 5 ML ORAL.SUSP PO ×4 (09:00→21:50)
[2022-09-27] MEDS: PANTOPRAZOLE SODIUM IV 40 MG VIAL IV PUSH ×2 (09:00→21:50)
[2022-09-27] MEDS: LORazepam INJ (*CRX) 2 MG/ML VIAL 0.5 MG IV PUSH ×2 (15:45→21:50)
--- NOTE | 2022-09-27 18:38 | PN_ITS ---
DATE OF SERVICE: 09/27/2022 HISTORY OF PRESENT ILLNESS: This is a 71-year-old male patient, with a history of dysphagia. Has had difficulty since having cervical spine surgery within the last 2 to 3 weeks. Complicated by right hematoma that was evacuated at [facility]. The patient was intubated for 3 days. He has had difficulty swallowing since that time. Currently tolerating tube feedings with Dobbhoff tube for nutrition. EGD was unremarkable. The patient seen today. PHYSICAL EXAMINATION: VITAL SIGNS: Stable. GENERAL: He is somewhat frustrated with not being able to eat. Recent modified barium swallow revealed the patient to be at aspiration risk. HEENT: Reveals an absent gag reflex. The patient is anicteric. NECK: Reveals minimal swelling around the incision site on the right lateral neck. LUNGS: Clear. HEART: Without murmur. ABDOMEN: Soft and nontender. IMPRESSION: Dysphagia, likely related to recent neck surgery and the evacuated hematoma; however, the patient does have absent gag reflex, which likely contributes to this. It is uncertain if this is new or old. I am also uncertain if this is related to his recent surgery. I would recommend evaluation by a neck surgeon or a neurologist to help determine whether this is short or fpc. If the patient is expected to have long-term nutritional needs, then progressing to a PEG tube-type tube feedings may be appropriate. PEG tube cannot be performed for the next couple of days because of computer difficulties. The patient is currently receiving adequate nutrition with the Dobbhoff tube, we will continue this for the interim. I did discuss this today with Dr. Huizar, the hospitalist, and anticipate some opinion from surgeons whether this is a common complication or not. Sedrick I MT: Rito
--- NOTE | 2022-09-27 18:46 | PC.NURSE ---
Paper documentation exists on this patient due to [employer] downtime on 09/27/22 from [id number] to [id number]
[2022-09-27 21:41] VITALS: BP 158/72; PULSE 83; RESP 18; TEMP 36.5; O2SAT 99
[2022-09-27] MEDS: LATANOPROST 0.005% OP SOLN 2.5 ML BTL 1 DROP EACH EYE (21:50)
[2022-09-28] MEDS: LORazepam INJ (*CRX) 2 MG/ML VIAL 0.5 MG IV PUSH ×3 (03:56→17:03)
[2022-09-28] MEDS: SODIUM CHLORIDE 0.9% IV 1,000 ML 100 ML IV CONT ×2 (03:56→17:03)
[2022-09-28 04:18] VITALS: BP 145/75; PULSE 84; RESP 14; TEMP 36.6; O2SAT 98
[2022-09-28] MEDS: metroNIDAZOLE 500 MG/ISO 100ML 500 MG/100 ML BAG 100 MG IVPB ×3 (05:07→12:17)
[2022-09-28 05:51] LABS: Hematocrit 27.4 % (42.0-52.0); Mean Corpuscular HGB Conc 32.8 g/dl (32-36); Mean Corpuscular Hemoglobin 30.5 pg (26-34); Mean Corpuscular Volume 92.9 fl (80-100); Platelet Count Result 137 k/mm3 (150-375); Red Blood Count 2.95 M/mm3 (4.6-6.20); Red Cell Distribution Width 13.7 % (11.5-14.5); White Blood Count 3.4 K/mm3 (4.5-10.0)
[2022-09-28 06:09] LABS: Anion Gap 4 mmol/L (8-16); Blood Urea Nitrogen 10 mg/dL (9-20); Carbon Dioxide 29 mmol/L (22-30); Chloride 102 mmol/L (98-107); Estimated CRCL calculation 102 ml/min; Estimated Glomerular Filt Rate > 60; Glucose 114 mg/dL (65-110); Magnesium 1.7 mg/dL (1.6-2.3); Potassium 4.1 mmol/L (3.4-5.0); Sodium 135 mmol/L (137-145)
--- NOTE | 2022-09-28 09:02 | WPDGIPROGNO ---
Progress Note: A&P Assessment and Plan (1) Difficulty swallowing: Code(s): R13.10 - Dysphagia, unspecified Status: Acute Assessment and Plan: Patient has had difficulty swallowing ever since his cervical disc surgery. It was complicated by it neck hematoma. Currently has absent gag reflex. He failed a modified barium swallow. Plan to obtain either surgical opinion or neurological opinion whether this is long-term her short-term. 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 Hopefully he can eat with thickened liquids. We will repeat modified barium swallow today. If he is unable to swallow at all than PEG tube placement can be placed either on Sunday or Sunday. He may wish to take his chances and tried to swallow with Thick liquids knowing the risk of pneumonia developing. (2) H/O cervical discectomy: Code(s): Z98.890 - Other specified postprocedural states Status: Acute Subjective Date/time seen: 09/28/22 09:02 Interval history: patient alert comfortable today. He feels stronger. Voice is stronger. Anxious to go home. Frustrated with not eating. Tolerating Dobbhoff tube feedings at present. Had a good night sleep after Ativan yesterday. Review of Systems Review of Systems: Review of systems noncontributory. Exam Narrative: Physical exam reveals patient be alert comfortable at rest. Dobbhoff tube in place. HEENT exam reveals no gag reflex. Surgical wound site on the right lateral neck is healed well. No obvious swelling associated with this at present. Lungs are clear. Abdomen benign. Objective Data Vital Signs Vital Signs: Vital Signs - 24 hr 09/27/22 21:41 09/28/22 04:18 Temperature 97.7 F 97.9 F Pulse Rate 83 84 Respiratory Rate 18 14 Blood Pressure 158/72 H 145/75 H Pulse Oximetry 99 98 Intake/Output Intake/Output: Intake & Output 09/25/22 09/26/22 09/27/22 09/28/22 23:59 23:59 23:59 23:59 Intake Total 1350 6563 1100 200 Output Total 875 750 200 900 Balance 475 5885 900 -700 Meds/Results Medications: Active Medications Generic Name Dose Route Start Last Admin Trade Name Freq PRN Reason Stop Dose Admin Albuterol 2.5 mg 09/24/22 08:46 Albuterol Sulfate Neb 2.5 Mg/3 Ml Inh INHALATION Q6HRT PRN Shortness Of Breath Enoxaparin Sodium 60 mg 09/21/22 21:00 09/27/22 21:50 Enoxaparin 60 Mg/0.6 Ml Syringe SUB-Q 60 mg Q12H MURRAY Administration Ceftriaxone Sodium 1 gm in 50 mls @ 100 mls/hr 09/20/22 16:00 09/26/22 17:04 Rocephin 1 Gm/Ns 50 Ml IVPB Infused Q24H MURRAY Infusion Sodium Chloride 1,000 mls @ 100 mls/hr 09/21/22 01:15 09/28/22 03:56 Normal Saline Iv IV CONT 100 mls/hr .Q10H MURRAY Administration Metronidazole 500 mg in 100 mls @ 100 mls/hr 09/23/22 07:40 09/28/22 06:07 Flagyl 500 Mg/Iso Soln 100 Ml IVPB Infused Q6HR MURRAY Infusion Ipratropium [place] 0.5 mg 09/24/22 08:46 Ipratropium Br 0.02% Inh Soln 0.5 Mg/2.5 Ml Vial INHALATION Q6HRT PRN Shortness Of Breath Latanoprost 1 drop 09/21/22 21:00 09/27/22 21:50 Latanoprost 0.005% Op Soln 2.5 Ml Btl EACH EYE 1 drop HS MURRAY Administration Lorazepam 0.5 mg 09/21/22 00:53 09/28/22 03:56 Lorazepam Inj (*Crx) 2 Mg/Ml Vial IV PUSH 0.5 mg Q6H PRN Administration Anxiety Nitroglycerin 0.4 mg 09/21/22 00:50 Nitroglycerin Sl 0.4 Mg Tablet SUBLINGUAL Q5M PRN Chest Pain Nystatin 5 ml 09/21/22 09:00 09/27/22 21:50 Nystatin 100,000 Units/Ml Susp 5 Ml Oral.Susp PO 5 ml QID MURRAY Administration Pantoprazole Sodium 40 mg 09/21/22 09:00 09/27/22 21:50 Pantoprazole Sodium Iv 40 Mg Vial IV PUSH 40 mg Q12HR MURRAY Administration Radiology Results: ITS Impressions Soft Tissue Neck CT 09/20/22 15:27 IMPRESSION: 1. Posterior wall thickening of the esophagus at T2 and T3, new from 07/20/2022, likely inflammation. 2. Groundglass opacities and septal thickening in lef
[2022-09-28] MEDS: ENOXAPARIN 60 MG/0.6 ML SYRINGE SUB-Q ×2 (09:06→20:12)
[2022-09-28] MEDS: NYSTATIN 100,000 UNITS/ML SUSP 5 ML ORAL.SUSP PO ×4 (09:06→20:13)
[2022-09-28] MEDS: PANTOPRAZOLE SODIUM IV 40 MG VIAL IV PUSH ×2 (09:07→20:13)
--- NOTE | 2022-09-28 10:03 | P.PNIM_ITS ---
Progress Note: A&P Assessment and Plan (1) Difficulty swallowing: Code(s): R13.10 - Dysphagia, unspecified Status: Acute Assessment and Plan: nystatin has been started. Continue pantoprazole. The patient has a modified barium swallow ordered for tomorrow. The patient was recently intubated last month and had a cervical laminectomy. The patient stated that he is having difficulty swallowing. He states that he cannot drink water but he drinks thickened liquids he does better. ?shortness of breath HPI-Narrative: ?this is a 71-year-old male patient who came to the emergency room due to increased difficulty with swallowing.? The patient had a cervical surgery performed at [facility] on August 16 and had a bleeding complication due to a large hematoma to his neck that needed to be drained.? The patient was ultimately intubated state in the ICU.? The patient was discharged on September 08.? Since the patient has been home he has been having difficulty swallowing.? The patient has seen Dr. Mcintyre in the past.? The patient is scheduled to have an EGD by Dr.? Li.? as soft tissue neck CT was read as the following1. Posterior wall thickening of the esophagus at T2 and T3, new from 07/20/2022, likely inflammation. 2. Groundglass opacities and septal thickening in left upper lobe and superior segment left lower lobe, consistent with pulmonary edema versus pneumonia. chest x-ray was read asMPRESSION: Patchy left mid and lower lung field infiltrate suggesting left lower lobe pneumonia? the patient was given a azithromycin Rocephin.? 09/26/2022 interval history:? 71-year-old male with history cervical surgery and had developed hematoma status post drained, patient continued to have dysphagia and has lost 14 lb, patient was seen by speech therapist and recommended NPO,? on 09/22? 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 patient? was tolerating tube feeding? on 50cc/hr advanced the diet to 70 cc/hour as tolerated, however on 09/25 patient pulled his Dobbhoff, discussed with GI, will have ST evaluate patient and had MBS which he rashmi, reinsert Dobbhoff again and continue tube feed, patient continued to have a Dobbhoff is tolerating tube feeding, will continue for few days and repeat the modified and further recommendation to follow. patient is also found to have pneumonia suspect aspiration due to difficulty swallowing , patient is being treated with ceftriaxone and azithromycin added Flagyl to cover for anaerobic, repeat chest x-ray on 09/25 showed improvement, however patient may has aspirated again when he pulled his tube out, will CPM<? will continue to monitor and further recommendation to follow. 09/28/2022: Presented with difficulty swallowing. Patient recently had history of cervical surgery at [facility] on August 16 complicated with hematoma status post drainage. Patient continued to have dysphagia since then and lost 14 lb. Discharged from the hospital in September 08. Since patient has been on home has been having difficulty swallowing. Scheduled to have EGD by Dr. Li. Seen by speech therapist and recommended NPO. On 09/22 seen by GI and EGD showed Colin's esophagus without dysplasia and inflammation secondary to recent surg heidy. Doff of has been placed for nutrition. Tolerating tube feeds via Dobbhoff. 09/25 patient pulled his Dobbhoff. Which has been reinserted. Modified barium swallow failed on 09/25/2022 repeat modified barium swallow today pending result.. Also found to have pneumonia suspected from aspiration. Treated with ceftriaxone azithromycin and Flagyl. Repeat manjula
--- NOTE | 2022-09-28 10:20 | PCSTNOTE ---
Please refer to the Modified Barium Swallow Evaluation in the EMR.
[2022-09-28 13:02] LABS: Hematocrit 28.7 % (42.0-52.0); Hemoglobin 9.6 g/dL (14.0-18.0); Mean Corpuscular HGB Conc 33.4 g/dl (32-36); Mean Corpuscular Volume 92.6 fl (80-100); Mean Platelet Volume 9.2 fl (7.4-10.4); Platelet Count Result 188 k/mm3 (150-375); Red Cell Distribution Width 13.6 % (11.5-14.5); White Blood Count 4.5 K/mm3 (4.5-10.0)
[2022-09-28 13:03] LABS: Anion Gap 4 mmol/L (8-16); Blood Urea Nitrogen 9 mg/dL (9-20); Carbon Dioxide 29 mmol/L (22-30); Chloride 100 mmol/L (98-107); Estimated CRCL calculation 102 ml/min; Estimated Glomerular Filt Rate > 60; Glucose 112 mg/dL (65-110); Potassium 4.2 mmol/L (3.4-5.0); Sodium 133 mmol/L (137-145)
[2022-09-28 13:04] LABS: Calcium 8.2 mg/dL (8.4-10.2); Magnesium 1.8 mg/dL (1.6-2.3)
[2022-09-28 14:00] VITALS: BP 159/68; PULSE 80; RESP 16; TEMP 36.7; O2SAT 100
[2022-09-28 20:11] VITALS: BP 163/85; PULSE 79; RESP 16; TEMP 36.9; O2SAT 99
[2022-09-28] MEDS: LATANOPROST 0.005% OP SOLN 2.5 ML BTL 1 DROP EACH EYE (20:12)
[2022-09-29] VITALS (7 sets, daily range): BP systolic 153–179; BP diastolic 69–86; PULSE 73–83; RESP 15–20; TEMP 36.4–37; O2SAT 76–100
[2022-09-29] MEDS: LORazepam INJ (*CRX) 2 MG/ML VIAL 0.5 MG IV PUSH (03:52)
[2022-09-29] MEDS: SODIUM CHLORIDE 0.9% IV 1,000 ML 100 ML IV CONT ×2 (03:54→12:41)
[2022-09-29 05:50] LABS: Hematocrit 29.2 % (42.0-52.0); Hemoglobin 9.4 g/dL (14.0-18.0); Mean Corpuscular HGB Conc 32.2 g/dl (32-36); Mean Corpuscular Hemoglobin 30.4 pg (26-34); Mean Corpuscular Volume 94.5 fl (80-100); Mean Platelet Volume 9.2 fl (7.4-10.4); Platelet Count Result 169 k/mm3 (150-375); Red Blood Count 3.09 M/mm3 (4.6-6.20); White Blood Count 3.6 K/mm3 (4.5-10.0)
[2022-09-29 06:03] LABS: Anion Gap 2 mmol/L (8-16); Blood Urea Nitrogen 9 mg/dL (9-20); Calcium 8.1 mg/dL (8.4-10.2); Carbon Dioxide 29 mmol/L (22-30); Chloride 101 mmol/L (98-107); Estimated CRCL calculation 102 ml/min; Estimated Glomerular Filt Rate > 60; Glucose 120 mg/dL (65-110); Magnesium 1.8 mg/dL (1.6-2.3); Potassium 4.2 mmol/L (3.4-5.0); Sodium 132 mmol/L (137-145)
--- NOTE | 2022-09-29 07:19 | WPDGIPROGNO ---
Progress Note: A&P Assessment and Plan (1) Difficulty swallowing: Code(s): R13.10 - Dysphagia, unspecified Status: Acute Assessment and Plan: Patient with ongoing dysphagia. He has an absent gag reflex. Likely this is not related to his recent surgery. Probably has been going on for some time. Aggravated by recent surgery. Patient reports when he has surgery 1 year ago it took him quite a while before he was able to swallow safely. Patient is failed 3 modified barium swallow studies. Plan to proceed with PEG tube. Continue speech therapy. Hopefully PEG tube can be removed after 2 months. Appreciate neurological improved. Final impression pending. 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 (3) H/O cervical discectomy: Code(s): Z98.890 - Other specified postprocedural states Status: Acute Subjective Date/time seen: 09/29/22 07:19 Interval history: Patient alert comfortable. Has been unable to swallow. Repeat modified barium swallow last heard a reveals he still is not safe to have oral intake. He does cough frequently with mucus. Review of Systems Review of Systems: Review of systems noncontributory. Exam Narrative: Physical exam reveals patient to be alert. Vital signs stable. Dobbhoff tube in place in tolerated prior well. Surgical wound on neck is healed well with no a dim edema evident. Patient has no gag reflex. Lungs are clear. Heart without murmur. Abdomen bowel sounds present soft nontender with no organomegaly. Objective Data Vital Signs Vital Signs: Vital Signs - 24 hr 09/28/22 09:15 09/28/22 14:00 09/28/22 20:11 Temperature 98.0 F 98.4 F Pulse Rate 80 79 Respiratory Rate 16 16 Blood Pressure 159/68 H 163/85 H Pulse Oximetry 100 99 Oxygen Delivery Room Air 09/29/22 04:00 Temperature 97.6 F Pulse Rate 73 Respiratory Rate 18 Blood Pressure 153/74 H Pulse Oximetry 98 Oxygen Delivery Intake/Output Intake/Output: Intake & Output 09/26/22 09/27/22 09/28/22 09/29/22 23:59 23:59 23:59 23:59 Intake Total 6563 1150 1200 1000 Output Total 692 425 1136 1275 Balance 5813 950 0 -275 Meds/Results Medications: Active Medications Generic Name Dose Route Start Last Admin Trade Name Freq PRN Reason Stop Dose Admin Albuterol 2.5 mg 09/24/22 08:46 Albuterol Sulfate Neb 2.5 Mg/3 Ml Inh INHALATION Q6HRT PRN Shortness Of Breath Enoxaparin Sodium 60 mg 09/21/22 21:00 09/28/22 20:12 Enoxaparin 60 Mg/0.6 Ml Syringe SUB-Q 60 mg Q12H MURRAY Administration Sodium Chloride 1,000 mls @ 100 mls/hr 09/21/22 01:15 09/29/22 03:54 Normal Saline Iv IV CONT 100 mls/hr .Q10H MURRAY Administration Ipratropium [place] 0.5 mg 09/24/22 08:46 Ipratropium Br 0.02% Inh Soln 0.5 Mg/2.5 Ml Vial INHALATION Q6HRT PRN Shortness Of Breath Latanoprost 1 drop 09/21/22 21:00 09/28/22 20:12 Latanoprost 0.005% Op Soln 2.5 Ml Btl EACH EYE 1 drop HS MURRAY Administration Lorazepam 0.5 mg 09/21/22 00:53 09/29/22 03:52 Lorazepam Inj (*Crx) 2 Mg/Ml Vial IV PUSH 0.5 mg Q6H PRN Administration Anxiety Nitroglycerin 0.4 mg 09/21/22 00:50 Nitroglycerin Sl 0.4 Mg Tablet SUBLINGUAL Q5M PRN Chest Pain Nystatin 5 ml 09/21/22 09:00 09/28/22 20:13 Nystatin 100,000 Units/Ml Susp 5 Ml Oral.Susp PO 5 ml QID MURRAY Administration Pantoprazole Sodium 40 mg 09/21/22 09:00 09/28/22 20:13 Pantoprazole Sodium Iv 40 Mg Vial IV PUSH 40 mg Q12HR MURRAY Administration Radiology Results: ITS Impressions Soft Tissue Neck CT 09/20/22 15:27 IMPRESSION: 1. Posterior wall thickening of the esophag
[2022-09-29] MEDS: NYSTATIN 100,000 UNITS/ML SUSP 5 ML ORAL.SUSP PO (08:23)
[2022-09-29] MEDS: PANTOPRAZOLE SODIUM IV 40 MG VIAL IV PUSH (08:23)
--- NOTE | 2022-09-29 08:23 | WPDANESEPPF ---
Anes - Initial Pre Proc Eval Procedure: Operation Date: 09/22/22 13:15 Proposed Procedures p Esophagogastroduodenoscopy - Kody Mcintyre MD Operation Date: 09/22/22 14:15 Proposed Procedures p Esophagogastroduodenoscopy - John Paul Leiva MD Operation Date: 09/29/22 14:30 Proposed Procedures p Percutaneous Endoscopic Gastrostomy - Kody Mcintyre MD Date/Time: 09/29/22 08:23 Surgeon: Roney Heart MD Pre Op Diagnosis: Difficulty swallowing,Esophagitis,Pneumonia Patient Data Age: 71 Gender: M Height: 1.73 m Weight: 66 kg Last Vital Signs Temp 36.4 C 09/29/22 04:00 Pulse 73 09/29/22 04:00 Resp 18 09/29/22 04:00 BP 153/74 H 09/29/22 04:00 Pulse Ox 98 09/29/22 04:00 O2 Del Method Room Air 09/28/22 09:15 FiO2 21 09/22/22 20:35 Allergies Allergy/AdvReac Type Severity Reaction Status Date / Time morphine Allergy Unknown Itching/JASON Verified 09/22/22 11:59 H Home Medications Medication Instructions Recorded Confirmed Type ezetimibe 10 mg tablet 10 mg PO DAILY 07/16/20 09/20/22 History famotidine 20 mg PO DAILY 07/16/20 09/20/22 History latanoprost 0.005 % eye drops 1 drp EACH EYE QPM 07/16/20 09/20/22 History lisinopril 20 2 tablet PO DAILY 07/16/20 09/20/22 History mg-hydrochlorothiazide 25 mg tablet omeprazole 20 mg capsule,delayed 20 mg PO DAILY 07/16/20 09/20/22 History release pravastatin 80 mg tablet 80 mg PO HS 07/16/20 09/20/22 History gabapentin 300 mg capsule 300 mg PO TID 04/22/21 09/20/22 History carvedilol 12.5 mg tablet 12.5 mg PO HS 05/25/21 09/20/22 History trazodone 50 mg tablet 50 mg PO HS PRN Insomnia 05/04/22 09/20/22 History nitroglycerin 0.4 mg sublingual 0.4 mg sublingual Q5M PRN Chest 09/12/22 09/20/22 Rx tablet (Nitrostat) Pain #20 tabs alprazolam 0.25 mg tablet 0.25 mg PO TID PRN anxiety #30 tabs 09/20/22 09/20/22 Rx apixaban 5 mg tablet 5 mg PO BID 09/20/22 09/20/22 History diltiazem HCl 240 mg 240 mg PO DAILY 09/20/22 09/20/22 History capsule,extended release 24 hr Laboratory Tests 09/27/22 09/28/22 09/29/22 05:15 05:37 05:24 WBC 4.5 K/mm3 3.6 L K/mm3 (4.5-10.0) (4.5-10.0) RBC 3.10 L M/mm3 3.09 L M/mm3 (4.6-6.20) (4.6-6.20) Hgb 9.6 L g/dL 9.0 L g/dL 9.4 L g/dL (14.0-18.0) (14.0-18.0) (14.0-18.0) Hct 28.7 L % 29.2 L % (42.0-52.0) (42.0-52.0) MCV 92.6 fl 92.9 fl 94.5 fl (80-100) (80-100) (80-100) MCH 31.0 pg 30.5 pg 30.4 pg (26-34) (26-34) (26-34) MCHC 33.4 g/dl 32.2 g/dl (32-36) (32-36) RDW 13.6 % 14.0 % (11.5-14.5) (11.5-14.5) Plt Count 188 k/mm3 137 L k/mm3 169 k/mm3 (150-375) (150-375) (150-375) MPV 9.2 fl 9.2 fl (7.4-10.4) (7.4-10.4) Sodium 133 L mmol/L 132 L mmol/L (137-145) (137-145) Potassium 4.2 mmol/L 4.2 mmol/L (3.4-5.0) (3.4-5.0) Chloride 100 mmol/L 101 mmol/L (98-107) (98-107) Carbon Dioxide 29 mmol/L 29 mmol/L (22-30) (22-30) Anion Gap 4 L mmol/L 2 L mmol/L (8-16) (8-16) BUN 9 mg/dL 10 mg/dL 9 mg/dL (9-20) (9-20) (9-20) Creatinine 0.50 L mg/dL 0.50 L mg/dL (0.7-1.3) (0.7-1.3) Estim Creat Clear Calc 102 ml/min 102 ml/min Estimated GFR > 60 > 60 (59 - ) (59 - ) Glucose 112 H mg/dL 120 H mg/dL (65-110) (65-110) Calcium 8.2 L mg/dL 8.1 L mg/dL (8.4-10.2) (8.4-10.2) Magnesium 1.8 mg/dL 1.8 mg/dL (1.6-2.3) (1.6-2.3) Patient hx anesthesia problems: none Family hx anesthesia problems: none Results Review: All pre-operative results and documents have been reviewed as part of the pre-operative evaluation. [facility] Past Medical History Medical History (Updated 09/29/22 @ 12:14 by Carlton Torrez MD) Anxiety about health Colin's esophagus CAD (coronary artery disease) Cervical radiculopathy Chronic GERD Essential (primary) hypertension Generalized ost
--- NOTE | 2022-09-29 12:06 | WPDNEURCNPN ---
Assessment and Plan Assessment and plan (1) Cranial nerve dysfunction: Code(s): G52.9 - Cranial nerve disorder, unspecified Status: Acute Plan Glossopharyngeal dysfunction because of the local pressure from the hematoma which has been drained already patient himself is improving and treatment will be continued as such, MRI has not documented any involvement of the brain this is simply peripheral nerve dysfunction. Consult date: 09/29/22 HPI: Torres Redmond is a 71 year old male admitted to the hospital through the emergency room on September 20, 2022 for the complaints of increasing difficulties with swallowing and with the information that patient had a cervical surgery performed at [facility] on 08/16 22 and subsequently had a bleeding complication due to large hematoma to his neck on the right side which required drainage patient was ultimately intubated in the ICU and was subsequently discharged on 09/08 22 but had been experiencing difficulties with swallowing patient has not also seen by Dr. walker in the past and was supposed to have EGD by Dr. linda his soft tissue of the cervical spine was read as posterior thickening of the esophagus wall on CT scan along with the ground-glass opacities and septal thickening in the left upper lobe. Patient ADH really has ongoing history of Colin's esophagus, coronary artery disease, hypertension, generalized osteoarthritis, hypertension, and hypercholesterolemia, in addition to the cervical radiculopathy for which he underwent the surgery followed by the hematoma on the right side of the cervical area neuro consult has been obtained because of difficulties in swallowing patient is already undergone endoscopic examination with diagnosis of diverticulosis without perforation, and Colin's esophagus. Review of Systems Review of Systems: All systems reviewed & are unremarkable except as noted in HPI and below PMFSH Past Medical History Medical History (Updated 09/29/22 @ 12:14 by Carlton Torrez MD) Anxiety about health Colin's esophagus CAD (coronary artery disease) Cervical radiculopathy Chronic GERD Essential (primary) hypertension Generalized osteoarthritis H/O acute myocardial infarction 1994, no stent placed, no issues History of stress test Hypercholesteremia Hypertension Old myocardial infarction Other spondylosis with radiculopathy, lumbar region Protein calorie malnutrition Weight loss Surgical History Surgical History (Updated 09/22/22 @ 07:33 by Kody Mcintyre MD) H/O cervical discectomy H/O inguinal hernia repair right side, w mesh davinci assisted 05/31/21 H/O repair of rotator cuff History of carpal tunnel release (~05/11/22) Right History of carpal tunnel release (~06/13/22) Left History of nasal surgery S/P carpal tunnel release Family History Family History Father Acute myocardial infarction Mother Heart disease Other Family history of congenital heart disease Hypertension Social History Social History (Updated 09/21/22 @ 00:57 by Francisca Chappell NP) Social History: The patient lives at home with his . He is retired. Code status full code Smoking packs per day: 1.5 Smoking cigarettes per day: 30.0 Years smoked: 40 Smoking pack-years: 60.00 Smoking status: Former smoker Tobacco type: cigarettes Alcohol intake: current Drinks per week: 2 Alcohol use details: beer Substance use: never Substance use type: does not use Lack of Transportation: No Lack of Food: Never True Current Housing: I Have Housing Concerned About Future Housing: No Difficulty Paying Gas/Electric Bills: No Difficulty Paying for Meds: No Currently Unemployed: No Education: High School Diploma/GED Difficulty w/ Childcare or Family Care: No Living arrangements: with family Occupation/Education: retired Gender identity (if verbalized by the patient): Arelis
--- NOTE | 2022-09-29 12:50 | PCNFU ---
Nutrition Follow-Up Complete: Severe Malnutrition related to inadequate portein intake and lack of nutrient dense foods as evidenced by intake of < 75% of estimated protein needs > 1 month and significant weight loss of 10% (14 ibs) in 1 month. Goal: Meet estimated nutritional needs Patient is progressing towards goal. We will continue current goal. Pt current nutrition is Jevity 1.2 @ 70 ml/hr. Nutrition recommendation: Bolus feedings of Jevity 1.5 300 ml 4 x daily with 100 ml water flush after feedings. Last recorded weight is 66 kg. Bowel Motility:+Bm reported 09/29 Labs Reviewed:Glu 120, Cr 0.5,Na 132 Meds Noted: Protonix, NS Skin: WNL Additional Notes: Patient to get PEG placement today. Failed MBS on 09/25 and 09/28. Tube feeding recommendations for home feedings: Jevity 1.5 300 ml 4 x daily. 100 ml water flush after feedings. Tube feedings will be providing patient with 1800 kcals/77 gms protein/912 ml water. Meeting 100% kcal needs at 30 kcal/kg and 100% protein need at 1.0-1.2 gm/kg. Discussed tube feedings recommendations with patient and family today. Will monitor weight, labs, tube feeding tolerance every Sunday and Sunday.
--- NOTE | 2022-09-29 13:45 | PCSTNOTE ---
Speech therapy unable to treat patient today. Patient unavailable, going downstairs for peg tube placement at this time.
[2022-09-29] MEDS: LACTATED RINGERS 1,000 ML 150 ML IV CONT (13:50)
[2022-09-29] MEDS: ceFAZolin 1 GM/NS 50 ML 1 GM/50 ML BAG IVPB (13:51)
--- NOTE | 2022-09-29 14:23 | PM.IMPN ---
Progress Note: A&P Assessment and Plan (1) Difficulty swallowing: Code(s): R13.10 - Dysphagia, unspecified Status: Acute Assessment and Plan: nystatin has been started. Continue pantoprazole. The patient has a modified barium swallow ordered for tomorrow. The patient was recently intubated last month and had a cervical laminectomy. The patient stated that he is having difficulty swallowing. He states that he cannot drink water but he drinks thickened liquids he does better. ?shortness of breath HPI-Narrative: ?this is a 71-year-old male patient who came to the emergency room due to increased difficulty with swallowing.? The patient had a cervical surgery performed at [facility] on August 16 and had a bleeding complication due to a large hematoma to his neck that needed to be drained.? The patient was ultimately intubated state in the ICU.? The patient was discharged on September 08.? Since the patient has been home he has been having difficulty swallowing.? The patient has seen Dr. Mcintyre in the past.? The patient is scheduled to have an EGD by Dr.? Li.? as soft tissue neck CT was read as the following1. Posterior wall thickening of the esophagus at T2 and T3, new from 07/20/2022, likely inflammation. 2. Groundglass opacities and septal thickening in left upper lobe and superior segment left lower lobe, consistent with pulmonary edema versus pneumonia. chest x-ray was read asMPRESSION: Patchy left mid and lower lung field infiltrate suggesting left lower lobe pneumonia? the patient was given a azithromycin Rocephin.? 09/26/2022 interval history:? 71-year-old male with history cervical surgery and had developed hematoma status post drained, patient continued to have dysphagia and has lost 14 lb, patient was seen by speech therapist and recommended NPO,? on 09/22? 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 patient? was tolerating tube feeding? on 50cc/hr advanced the diet to 70 cc/hour as tolerated, however on 09/25 patient pulled his Dobbhoff, discussed with GI, will have ST evaluate patient and had MBS which he rashmi, reinsert Dobbhoff again and continue tube feed, patient continued to have a Dobbhoff is tolerating tube feeding, will continue for few days and repeat the modified and further recommendation to follow. patient is also found to have pneumonia suspect aspiration due to difficulty swallowing , patient is being treated with ceftriaxone and azithromycin added Flagyl to cover for anaerobic, repeat chest x-ray on 09/25 showed improvement, however patient may has aspirated again when he pulled his tube out, will CPM<? will continue to monitor and further recommendation to follow. 09/28/2022: Presented with difficulty swallowing. Patient recently had history of cervical surgery at [facility] on August 16 complicated with hematoma status post drainage. Patient continued to have dysphagia since then and lost 14 lb. Discharged from the hospital in September 08. Since patient has been on home has been having difficulty swallowing. Scheduled to have EGD by Dr. Li. Seen by speech therapist and recommended NPO. On 09/22 seen by GI and EGD showed Colin's esophagus without dysplasia and inflammation secondary to recent surgery. Doff of has been placed for nutrition. Tolerating tube feeds via Dobbhoff. 09/25 patient pulled his Dobbhoff. Which has been reinserted. Modified barium swallow failed on 09/25/2022 repeat modified barium swallow today pending result.. Also found to have pneumonia suspected from aspiration. Treated with ceftriaxone azithromycin and Flagyl. Repeat chest x-ray on 09/25 showed improvement. Soft tissue neck: Posterior wall thickening of the esophagus at T2 and T3 new from 07/20/2022 likely inflammation. Ground-glass opacities and septal thickening in left upper
[2022-09-29] MEDS: BENZOCAINE (*SP) 60 ML SPRAY CAN (HURRICAINE) 1 SPRAY MUCOUS MEM (15:18)
--- NOTE | 2022-09-29 15:26 | SUR.OPER ---
INSERTION OF PEG TUBE, LOT #[id number] EXP. 11/14/23.
[2022-09-29] MEDS: ALPRAZolam (*CRX) 0.25 MG TABLET FEED TUBE (17:45)
[2022-09-29] MEDS: dilTIAZem HCL 60 MG TABLET FEED TUBE (17:45)
[2022-09-29] MEDS: LATANOPROST 0.005% OP SOLN 2.5 ML BTL 1 DROP EACH EYE (20:25)
[2022-09-29] MEDS: APIXABAN 5 MG TABLET FEED TUBE (20:25)
[2022-09-29] MEDS: carvediloL 12.5 MG TABLET FEED TUBE (20:26)
[2022-09-30] MEDS: dilTIAZem HCL 60 MG TABLET FEED TUBE ×4 (00:02→17:55)
[2022-09-30] MEDS: ALPRAZolam (*CRX) 0.25 MG TABLET FEED TUBE ×3 (01:36→20:54)
[2022-09-30 05:39] VITALS: BP 144/86; PULSE 81; RESP 16; TEMP 37.4; O2SAT 100
[2022-09-30 06:07] LABS: Hematocrit 29.3 % (42.0-52.0); Hemoglobin 9.4 g/dL (14.0-18.0); Mean Corpuscular HGB Conc 32.1 g/dl (32-36); Mean Corpuscular Hemoglobin 30.5 pg (26-34); Mean Corpuscular Volume 95.1 fl (80-100); Mean Platelet Volume 9.2 fl (7.4-10.4); Platelet Count Result 167 k/mm3 (150-375); Red Blood Count 3.08 M/mm3 (4.6-6.20); Red Cell Distribution Width 14.6 % (11.5-14.5); White Blood Count 4.7 K/mm3 (4.5-10.0)
[2022-09-30 06:18] LABS: Anion Gap 1 mmol/L (8-16); Blood Urea Nitrogen 9 mg/dL (9-20); Calcium 8.4 mg/dL (8.4-10.2); Carbon Dioxide 32 mmol/L (22-30); Chloride 97 mmol/L (98-107); Estimated CRCL calculation 76 ml/min; Estimated Glomerular Filt Rate > 60; Glucose 104 mg/dL (65-110); Magnesium 1.7 mg/dL (1.6-2.3); Potassium 4.7 mmol/L (3.4-5.0); Sodium 130 mmol/L (137-145)
[2022-09-30 07:58] VITALS: TEMP 36.9
[2022-09-30] MEDS: APIXABAN 5 MG TABLET FEED TUBE ×2 (08:52→20:54)
[2022-09-30] MEDS: FAMOTIDINE 20 MG TABLET FEED TUBE (08:52)
[2022-09-30] MEDS: lisinopriL 20 MG TABLET 40 MG FEED TUBE (08:52)
[2022-09-30] MEDS: EZETIMIBE 10 MG TABLET FEED TUBE (08:52)
--- NOTE | 2022-09-30 09:28 | WPDGIPROGNO ---
Progress Note: A&P Assessment and Plan (1) PEG (percutaneous endoscopic gastrostomy) status: Code(s): Z93.1 - Gastrostomy status Status: Acute Assessment and Plan: PEG tube placed yesterday. Tolerated well. Plan to send home with bolus tube feedings. Follow-up with primary care service next week. Continue speech swallowing therapy. If swallowing improved so the PEG no longer required it can be removed after 2 months. Patient can follow up in the GI office in a month or 2 for assessment if necessary. He can call for any questions. Local care to PEG tube site should continue. Usually hydrogen peroxide or Betadine applied to PEG tube site 2 to 3 times a day. Nutrition under direction of the command post superintendent. (2) Difficulty swallowing: Code(s): R13.10 - Dysphagia, unspecified Status: Acute Assessment and Plan: Patient has absent gag reflex. Has failed modified barium swallow. Plan to continue with speech therapy. Hopefully his swallowing will improve PEG can be removed ultimately. (3) H/O cervical discectomy: Code(s): Z98.890 - Other specified postprocedural states Status: Acute Assessment and Plan: Neck wound after cervical disc appears to be held healing well. Initially felt this was contributing to his dysphagia but I am somewhat uncertain at this point. (4) Chronic GERD: Code(s): K21.9 - Gastro-esophageal reflux disease without esophagitis Status: Acute Subjective Date/time seen: 09/30/22 09:28 Interval history: Patient alert comfortable this morning. Tolerating PEG tube feedings. Minimal discomfort at PEG tube site. Anxious to go home. Review of Systems Review of Systems: Review of systems noncontributory. Exam Narrative: Physical exam reveals patient be alert afebrile anicteric. Vital signs stable. HEENT exam reveals no icterus. Right neck wound healing well. Gag reflex absent. Lungs are clear. Heart without murmur. Abdomen bowel sounds present soft nontender PEG tube in the left upper quadrant healing well. Objective Data Vital Signs Vital Signs: Vital Signs - 24 hr 09/29/22 13:45 09/29/22 15:47 09/29/22 15:57 Temperature 98.6 F 98.4 F Pulse Rate 76 83 79 Respiratory Rate 18 19 15 Blood Pressure 179/78 H 164/84 H 165/86 H Pulse Oximetry 76 L 100 100 Oxygen Delivery Room Air Room Air Room Air 09/29/22 16:07 09/29/22 20:26 09/29/22 20:29 Temperature 98.2 F Pulse Rate 78 74 74 Respiratory Rate 20 16 Blood Pressure 170/81 H 168/69 H Pulse Oximetry 100 100 Oxygen Delivery Room Air 09/30/22 05:39 09/30/22 07:58 Temperature 99.4 F 98.4 F Pulse Rate 81 Respiratory Rate 16 Blood Pressure 144/86 H Pulse Oximetry 100 Oxygen Delivery Intake/Output Intake/Output: Intake & Output 09/27/22 09/28/22 09/29/22 09/30/22 23:59 23:59 23:59 23:59 Intake Total 1150 1200 2100 Output Total 200 1200 2025 1000 Balance 950 0 75 -1000 Meds/Results Medications: Active Medications Generic Name Dose Route Start Last Admin Trade Name Freq PRN Reason Stop Dose Admin Albuterol 2.5 mg 09/24/22 08:46 Albuterol Sulfate Neb 2.5 Mg/3 Ml Inh INHALATION Q6HRT PRN Shortness Of Breath Alprazolam 0.25 mg 09/29/22 17:05 09/30/22 08:52 Alprazolam (*Crx) 0.25 Mg Tablet FEED TUBE 0.25 mg TID PRN Administration anxiety Apixaban 5 mg 09/29/22 21:00 09/30/22 08:52 Apixaban 5 Mg Tablet FEED TUBE 5 mg Q12HR MURRAY Administration Carvedilol 12.5 mg 09/29/22 21:00 09/29/22 20:26 Carvedilol 12.5 Mg Tablet FEED TUBE 12.5 mg HS MURRAY Administration Diltiazem HCl 60 mg 09/29/22 18:00 09/30/22 05:46 Diltiazem Hcl 60 Mg Tablet FEED TUBE 60 mg Q6HR MURRAY Administration Ezetimibe 10 mg 09/30/22 09:00 09/30/22 08:52 Ezetimibe 10 Mg Tablet FEED TUBE 10 mg QAM MURRAY Administration Famotidine 20 mg 09/30/22 09:00 09/30/22 08:52 Famotidine 2
[2022-09-30 13:59] VITALS: BP 130/60; PULSE 84; RESP 17; TEMP 36.6; O2SAT 100
[2022-09-30 20:00] VITALS: PULSE 88; RESP 20; O2SAT 99
[2022-09-30 20:47] VITALS: BP 120/57; PULSE 79; RESP 20; TEMP 36.9; O2SAT 99
[2022-09-30 20:54] VITALS: PULSE 88
[2022-09-30] MEDS: LATANOPROST 0.005% OP SOLN 2.5 ML BTL 1 DROP EACH EYE (20:54)
[2022-09-30] MEDS: carvediloL 12.5 MG TABLET FEED TUBE (20:54)
[2022-10-01] MEDS: dilTIAZem HCL 60 MG TABLET FEED TUBE ×2 (00:05→05:33)
[2022-10-01 04:40] VITALS: BP 124/61; PULSE 70; RESP 20; TEMP 36.6; O2SAT 97
[2022-10-01 05:37] LABS: Hematocrit 30.8 % (42.0-52.0); Hemoglobin 10.1 g/dL (14.0-18.0); Mean Corpuscular HGB Conc 32.8 g/dl (32-36); Mean Corpuscular Hemoglobin 30.3 pg (26-34); Mean Corpuscular Volume 92.5 fl (80-100); Mean Platelet Volume 8.7 fl (7.4-10.4); Platelet Count Result 188 k/mm3 (150-375); Red Blood Count 3.33 M/mm3 (4.6-6.20); Red Cell Distribution Width 14.6 % (11.5-14.5); White Blood Count 4.4 K/mm3 (4.5-10.0)
[2022-10-01 06:04] LABS: Anion Gap 3 mmol/L (8-16); Blood Urea Nitrogen 12 mg/dL (9-20); Calcium 8.2 mg/dL (8.4-10.2); Carbon Dioxide 29 mmol/L (22-30); Chloride 97 mmol/L (98-107); Estimated CRCL calculation 102 ml/min; Estimated Glomerular Filt Rate > 60; Glucose 105 mg/dL (65-110); Potassium 4.3 mmol/L (3.4-5.0); Sodium 129 mmol/L (137-145)
[2022-10-01 06:10] LABS: Magnesium 1.8 mg/dL (1.6-2.3)
[2022-10-01 09:10] VITALS: BP 144/60
[2022-10-01] MEDS: APIXABAN 5 MG TABLET FEED TUBE (09:15)
[2022-10-01] MEDS: EZETIMIBE 10 MG TABLET FEED TUBE (09:16)
[2022-10-01] MEDS: FAMOTIDINE 20 MG TABLET FEED TUBE (09:16)
[2022-10-01] MEDS: lisinopriL 20 MG TABLET 40 MG FEED TUBE (09:16)
[2022-10-01] MEDS: ALPRAZolam (*CRX) 0.25 MG TABLET FEED TUBE (09:21)
--- NOTE | 2022-10-01 09:27 | WPDGIPROGNO ---
Progress Note: A&P Assessment and Plan (1) PEG (percutaneous endoscopic gastrostomy) status: Code(s): Z93.1 - Gastrostomy status Status: Acute Assessment and Plan: PEG tube placed on Sunday. Tolerated well. He has failed 3 modified barium swallow studies. I am somewhat uncertain how long his dysphagia will last period initially felt be short-term related to cervical neck surgery. Neurological consult of note not available for review at present. Peg tube placed a could be used for long time if necessary. I would not removed until least 2 months is gone by. Bolus tube feedings anticipated after discharge. Patient family instructed on use and care of PEG tube. (2) Difficulty swallowing: Code(s): R13.10 - Dysphagia, unspecified Status: Acute Assessment and Plan: Difficulty swallowing likely related to absent gag reflex. Recent cervical neck surgery is look much less swollen and nontender appears well healed. Difficult to attribute to this unless nerve injury. (3) H/O cervical discectomy: Code(s): Z98.890 - Other specified postprocedural states Status: Acute (4) Chronic GERD: Code(s): K21.9 - Gastro-esophageal reflux disease without esophagitis Status: Acute Assessment and Plan: patient has a history of Colin's esophagus. Known to have chronic GE reflux. Long-term proton pump inhibitor therapy advised. Elevate head of bed particularly after feedings is advised. Subjective Date/time seen: 10/01/22 09:27 Interval history: Patient alert comfortable this morning. Anxious to go home. Complains of some discomfort at PEG tube site. Review of Systems Review of Systems: Review of systems noncontributory. Exam Narrative: Physical exam reveals patient be alert. Vital signs stable. HEENT exam reveals no icterus. Patient has no gag reflex.Lungs are clear. Heart without murmur. Abdomen bowel sounds present soft nontender. Peg site appears to be healing well. External bumper loosened somewhat today. Objective Data Vital Signs Vital Signs: Vital Signs - 24 hr 09/30/22 13:59 09/30/22 20:47 09/30/22 20:54 Temperature 97.9 F 98.4 F Pulse Rate 84 79 88 Respiratory Rate 17 20 Blood Pressure 130/60 120/57 L Pulse Oximetry 100 99 Oxygen Delivery Fraction of Inspired Oxygen 09/30/22 20:00 10/01/22 04:40 Temperature 98 F Pulse Rate 88 70 Respiratory Rate 20 20 Blood Pressure 124/61 Pulse Oximetry 99 97 Oxygen Delivery Room Air Fraction of Inspired Oxygen 21 Intake/Output Intake/Output: Intake & Output 09/28/22 09/29/22 09/30/22 10/01/22 23:59 23:59 23:59 23:59 Intake Total 1200 2100 1600 200 Output Total 1200 2025 1400 425 Balance 0 75 200 -225 Meds/Results Medications: Active Medications Generic Name Dose Route Start Last Admin Trade Name Freq PRN Reason Stop Dose Admin Albuterol 2.5 mg 09/24/22 08:46 Albuterol Sulfate Neb 2.5 Mg/3 Ml Inh INHALATION Q6HRT PRN Shortness Of Breath Alprazolam 0.25 mg 09/29/22 17:05 10/01/22 09:21 Alprazolam (*Crx) 0.25 Mg Tablet FEED TUBE 0.25 mg TID PRN Administration anxiety Apixaban 5 mg 09/29/22 21:00 10/01/22 09:15 Apixaban 5 Mg Tablet FEED TUBE 5 mg Q12HR MURRAY Administration Carvedilol 12.5 mg 09/29/22 21:00 09/30/22 20:54 Carvedilol 12.5 Mg Tablet FEED TUBE 12.5 mg HS MURRAY Administration Diltiazem HCl 60 mg 09/29/22 18:00 10/01/22 05:33 Diltiazem Hcl 60 Mg Tablet FEED TUBE 60 mg Q6HR MURRAY Administration Ezetimibe 10 mg 09/30/22 09:00 10/01/22 09:16 Ezetimibe 10 Mg Tablet FEED TUBE 10 mg QAM MURRAY Administration Famotidine 20 mg 09/30/22 09:00 10/01/22 09:16 Famotidine 20 Mg Tablet FEED TUBE 10/30/22 08:59 20 mg DAILY MURRAY Administration Ipratropium Lorida 0.5 mg 09/24/22 08:46 Ipratropium Br 0.02% Inh Soln 0.5 Mg/2.5 Ml Vial INHALATION Q6HRT PRN
--- NOTE | 2022-10-01 11:18 | PM.DS ---
DS: Admitting Diagnosis Discharge Date 10/01/2022 Admitting Diagnosis Dysphagia DS: Discharge Diagnosis Discharge Diagnosis (1) Difficulty swallowing: Code(s): R13.10 - Dysphagia, unspecified Status: Acute (2) Pneumonia: Code(s): J18.9 - Pneumonia, unspecified organism Status: Acute (3) Hypercholesteremia: Code(s): E78.00 - Pure hypercholesterolemia, unspecified Status: Acute (4) Essential (primary) hypertension: Code(s): I10 - Essential (primary) hypertension Status: Acute (5) Chronic GERD: Code(s): K21.9 - Gastro-esophageal reflux disease without esophagitis Status: Acute DS: Summary Hospital Course Hospital Course: Presented with difficulty swallowing.? Patient recently had history of cervical surgery at [facility] on August 16 complicated with hematoma status post drainage.? Patient continued to have dysphagia since then and lost 14 lb.? Discharged from the hospital in September 08.? Since patient has been on home has been having difficulty swallowing.? Scheduled to have EGD by Dr. Li.? Seen by speech therapist and recommended NPO.? On 09/22 seen by GI and EGD showed Colin's esophagus without dysplasia and inflammation secondary to recent surgery.? Doff of has been placed for nutrition.? Tolerating tube feeds via Dobbhoff.? 09/25 patient pulled his Dobbhoff.? Which has been reinserted.? Modified barium swallow failed on 09/25/2022 repeat modified barium swallow 09/28/2022 failed.? Also found to have pneumonia suspected from aspiration.? Treated with ceftriaxone azithromycin and Flagyl.? Repeat chest x-ray on 09/25 showed improvement.? Antibiotics discontinued after finishing the course.? Patient is getting PEG tube placement 09/29/2022.? Per GI.? You will need to be NPO due to dysphagia and lack of gag reflex.? He will need feeding tube for greater than 90 days and require jevity 1.5 bolus feeding to maintain adequate caloric intake and may substitute if jevity not available.? Switched to bolus feeding which he tolerated well.? Soft tissue neck:? Posterior wall thickening of the esophagus at T2 and T3 new from 07/20/2022 likely inflammation.? Ground-glass opacities and septal thickening in left upper lobe and superior segment left lower lobe consistent with pulmonary edema versus pneumonia. Chest x-ray with patchy left mid and lower lung field infiltrate suggesting left lower lobe pneumonia.? TSH normal.? Finished antibiotic course and discontinued Moderate anemia with no signs of bleeding stable counts postoperative anemia Mild leukopenia and thrombocytopenia Mild hyponatremia Hypertension /hyperlipidemia/coronary artery disease status post angioplasty in 1994/colon polyps/cervical disc disease/lumbar degenerative disc disease/chronic GERD Neurology consulted.? MRI brain negative. DVT prophylaxis is to be on apixaban switched to Lovenox.? Restarted back on his apixaban as previously ordered Time Spent with Patient Time attestation: Total time spent providing and/or coordinating discharge services: Exam Narrative: Elderly frail Patient is comfortable, NAD; HEENT: eyes are clear and none icteric LUNGS: Normal respiratory effort ABD: Not distended G-tube in Lower extremities: no edema SKIN: nonjaundiced Neuro: grossly intact. DS: Data Data Completed and Pending Labs on day of discharge: Labs from last 24 hours 10/01/22 05:29 WBC 4.4 L RBC 3.33 L Hgb 10.1 L Hct 30.8 L MCV 92.5 MCH 30.3 MCHC 32.8 RDW 14.6 H Plt Count 188 MPV 8.7 Sodium 129 L Potassium 4.3 Chloride 97 L Carbon Dioxide 29 Anion Gap 3 L BUN 12 Creatinine 0.50 L Estim Creat Clear Calc 102 Estimated GFR > 60 Glucose 105 Calcium 8.2 L Magnesium 1.8 Imaging Radiologist's impression: ITS Impressions Chest X-Ray 09/20/22 15:03 IMPRESSION: Patchy left mid and lower lung field infiltrate suggesting left lower lobe pneumonia Soft Tissue Neck CT
== END 2022-10-01 12:34 | disposition home health service (06) | DRG 178 ==
LOC: ANHED 16:13 → ANH3MED 17:51
PROVIDERS: Family Medicine; Internal Medicine Gastroenterology; Nurse Practitioner; Admitting Provider Hospitalist; Emergency Provider Emergency Medicine; PCP Family Medicine; Visit Provider Internal Medicine
PROC: 0DJ08ZZ Inspection of Upper Intestinal Tract, Via Natural or Artificial Opening Endoscopic (ICD-10-PCS; CPT 43235; principal; 2022-09-22 13:15)
PROC: 0DH63UZ Insertion of Feeding Device into Stomach, Percutaneous Approach (ICD-10-PCS; CPT 43246; principal; 2022-09-29 14:30)
DX: J69.0 Pneumonitis due to inhalation of food and vomit (principal); E46 Unspecified protein-calorie malnutrition; E87.1 Hypo-osmolality and hyponatremia; K91.89 Other postprocedural complications and disorders of digestive system; K22.70 Barrett's esophagus without dysplasia; R13.10 Dysphagia, unspecified; D64.89 Other specified anemias; E78.00 Pure hypercholesterolemia, unspecified; K21.9 Gastro-esophageal reflux disease without esophagitis; G52.9 Cranial nerve disorder, unspecified; I10 Essential (primary) hypertension; R63.4 Abnormal weight loss; Z20.822 Contact with and (suspected) exposure to COVID-19; D69.6 Thrombocytopenia, unspecified; D72.819 Decreased white blood cell count, unspecified; I25.10 Atherosclerotic heart disease of native coronary artery without angina pectoris; M47.26 Other spondylosis with radiculopathy, lumbar region; M15.9 Polyosteoarthritis, unspecified; I25.2 Old myocardial infarction; Z87.891 Personal history of nicotine dependence; Z68.22 Body mass index [BMI] 22.0-22.9, adult; Z98.890 Other specified postprocedural states
CPT/HCPCS: 36415; 43246; 43752; 70491; 70551; 71045; 80048; 80053; 81003; 83605; 83735; 84443; 85025; 85027; 85610; 85730; 87040; 87070; 87205; 87637; 92507; 92526; 92607; 92611; 93005; 94640; 96361; 96365; 96367; 96375; 99285; A9270; C9113; G0378; J0456; J0690; J0696; J1650; J2060; J2704; J7030; J7120; Q9967

== ENCOUNTER 2022-11-01 10:46 | Outpatient (CLI) | payer MEDICARE, SELFPAY ==
--- NOTE | ~2022-11-01 | XR_ITS ---
EXAMINATION: XR barium swallow modified DATE: 11/01/2022 11:22 INDICATION: Dysphagia, unspecified. TECHNIQUE: The patient was given barium-containing material of multiple consistencies to swallow by t ivis speech pathologist while I performed fluoroscopy. Fluoroscopy exposure time was 4.5 minutes. The n umber of fluoroscopy images saved to the PACS was 1. Dose-area product was 3.649 Gy-cm^2. FINDINGS: There is reduced laryngeal elevation, reduced tongue base retraction, reduced pharyngeal squeeze, karlos lecular residue, and pyriform sinus residue. There is laryngeal penetration. IMPRESSION: 1. Laryngeal penetration. 2. Please refer to the speech therapy report for recommendations. Reviewed, dictated and finalized at location A.
--- NOTE | 2022-11-01 16:21 | REHSTMBS ---
Assessment and note entered by Laurel Kendall CURRICULUM MANAGER Modified Barium Swallow Evaluation Feeding Type Recommended Oral Food Consistency Minced and Moist, Level 5 Liquid Consistency Moderately Thick (3) ST Clinical Summary MODIFIED BARIUM SWALLOW STUDY This patient was seen for a repeat Modified Barium Swallow study at the request of his physician. He underwent spinal surgery in the past and began to exhibit signs of aspiration and difficulty swallowing. While an inpatient at [facility], he underwent several Modified Barium Swallow studies and was unable to demonstrate safe swallowing skills. He then was seen for additional Speech Therapy in the home to reinforce home exercise program. Patient receives all nutrition and hydration through his stomach tube at this time; he is maintaining his weight at about 127-128 pounds. This Modified Barium Swallow study was completed to assess progress and to determine if patient could begin oral feedings. Patient was viewed in the lateral position to the level of C5/C6. He was presented with 1/2 teaspoons of thin liquid contrast medium and mildly thick liquid contrast medium. On each presentation he exhibited immediate mild penetration of material into the upper laryngeal vestibule which mostly exited with the swallow and only trace residue remained. He was asked to clear this throat which cleared any residual. He was given an additional small sip of mildly thick liquid contrast medium using chin tuck with head turned to the left and positioning did not prevent penetration on mildly thick liquid. Given pudding mixed with semi-solid contrast medium, moderately thickened liquid contrast medium per spoon and then per cup, and both fruit pieces and small piece of luis fernando cracker, both coated with the pudding mixture, he was able to avoid any additional penetration into the airway using the chin tuck with head turned to the left positioning. All presentations left significant vallecular and pyriform sinus residue. Results indicate this patient may begin oral feedings. Pureed Diet to Minced and Moist Diet, type of foods may be attempted along with
== END 2022-11-01 10:47 | disposition home or self-care (01) ==
LOC: ANHIMG 10:48
PROVIDERS: PCP Family Medicine; Visit Provider Family Medicine
DX: R13.10 Dysphagia, unspecified (principal)
CPT/HCPCS: 92611

== ENCOUNTER 2023-03-06 08:10 | Outpatient (CLI) | payer MEDICARE, SELFPAY ==
--- NOTE | ~2023-03-06 | XR_ITS ---
MODIFIED ESOPHAGRAM HISTORY: Dysphagia. TECHNIQUE: Modified barium esophagram was performed on 03/06/2023. I administered fluoroscopy and per formed the exam with speech pathologist. Patient was seated for lateral fluoroscopic imaging for ing estion of thin liquids, pudding, solids and quantified amounts, followed by thin liquids in uncontrol led amounts. This was recorded on tape. A single fluoroscopic spot image was also recorded. The DAP f or this procedure was 2 Gycm2. The amount of fluoroscopy time used during this procedure was 2.7 nelda maria eugenia. FINDINGS: Oral stage: Adequate function. Pharyngeal stage: Reduced laryngeal elevation, tongue base retraction and pharyngeal squeeze. There i s pharyngeal wall, likely and piriform sinus residue. There is laryngeal penetration without aspirati on with uncontrolled thin liquids. Cervical/esophageal stage: Adequate function. IMPRESSION: Pharyngeal dysphagia with laryngeal penetration without aspiration with uncontrolled thin liquids. Please correlate with speech pathologist findings and specific feeding recommendations. Reviewed, dictated and finalized at location A. D REPORTER IMPRESSION: Pharyngeal dysphagia with laryngeal penetration without aspiration with uncontrolled thin liquids. Please correlate with speech pathologist findi ngs and specific feeding recommendations.
--- NOTE | 2023-03-06 09:58 | REHSTMBS ---
Assessment and note entered by Laurel Kendall, PASSENGER BOOKING CLERK Modified Barium Swallow Evaluation Feeding Type Recommended Oral Food Consistency Soft and Bite Size, Level Liquid Consistency Thin (0) Treatment Recommendations Effortful Swallow,Laryngeal Elevation Exerc,Tongue Base Exercise ST Clinical Summary MODIFIED BARIUM SWALLOW STUDY This patient was seen for a Modified Barium Swallow study at the request of his physician. Patient has a history of cervival fusion surgery in the past, date unknown, and began exhibiting difficulty swallowing and signs of aspiration. He was seen by Speech Therapy as an inpatient and Modified Barium Swallow studies placed patient at significant risk for aspiration at that time and a g-tube was placed. He was then seen for additional Home Health Speech Therapy through [facility] for additional exercises in order to improve the strength of the swallow. By time of discharge, a repeat Modified Barium Swallow, 11/01/22, revealed that patient was cleared to begin some oral feedings using swallow- cough-swallow again routine to clear any penetrated material and Moderately Thick Liquids (Honey-thick) with head turn and flexed. Today the patient reports he eats anything I want, but some consistencies are more difficult than others. He reported that he has not used thickener in a long time. Patient states that he often takes one can of Jevity through the tube for breakfast and then sometimes does not eat anything else except maybe a snack or he drinks a can of Jevity until supper time. He states that he is able to drink anything he wants but that he knows he must take small sips and use the [id number] routine. When asked if he had suffered any pneumonia since beginning oral feedings, initially he denied but then he and his both stated that he had a chest issue, which they attributed to sinus drainage, that cleared with antibiotics; therapist reminded them that could have been attributed to aspiration on thin liquids and to watch for that. Patient was viewed in the lateral position to the level of C5/C6. He was preseented with small amount of thin liquid contrast medium per spoon,
--- NOTE | 2023-03-26 09:15 | REHSTMBS ---
Assessment and note entered by Laurel Kendall, CLAIM MANAGER Modified Barium Swallow Evaluation Feeding Type Recommended Oral Food Consistency Soft and Bite Size, Level Liquid Consistency Thin (0) Treatment Recommendations Effortful Swallow,Laryngeal Elevation Exerc,Tongue Base Exercise ST Clinical Summary MODIFIED BARIUM SWALLOW STUDY This patient was seen for a Modified Barium Swallow study at the request of his physician. Patient has a history of cervival fusion surgery in the past, date unknown, and began exhibiting difficulty swallowing and signs of aspiration. He was seen by Speech Therapy as an inpatient and Modified Barium Swallow studies placed patient at significant risk for aspiration at that time and a g-tube was placed. He was then seen for additional Home Health Speech Therapy through [facility] for additional exercises in order to improve the strength of the swallow. By time of discharge, a repeat Modified Barium Swallow, 11/01/22, revealed that patient was cleared to begin some oral feedings using swallow- cough-swallow again routine to clear any penetrated material and Moderately Thick Liquids ( Honey-thick) with head turn and flexed. Today the patient reports he eats anything I want, but some consistencies are more difficult than others. He reported that he has not used thickener in a long time. Patient states that he often takes one can of Jevity through the tube for breakfast and then sometimes does not eat anything else except maybe a snack or he drinks a can of Jevity until supper time. He states that he is able to drink anythiing he wants but that he knows he must take small sips and use the yxsljpl-vcigx-[id number] routine. When asked if he had suffered any pneumonia since beginning oral feedings, initially he denied but then he and his both stated that he had a chest issue, which they attributed to sinus drainage, that cleared with antibiotics; therapist reminded them that could have been attributed to aspiration on thin liquids and to watch for that. Patient was viewed in the lateral position to the level of C5/C6. He was preseented with small amount of thin liquid contrast medium per spoon,
== END 2023-03-06 08:11 | disposition home or self-care (01) ==
PROVIDERS: PCP Family Medicine; Visit Provider Internal Medicine Gastroenterology
DX: R13.10 Dysphagia, unspecified (principal)
CPT/HCPCS: 92611

== ENCOUNTER 2023-03-26 13:41 | Outpatient (RCR) | payer MEDICARE, SELFPAY ==
--- NOTE | 2023-03-26 15:31 | STOPEVDC ---
Assessment and note entered by Laurel Kendall, MARKET RELATIONSHIP MANAGER Thank you for referring Torres Redmond to [facility].? An evaluation has been completed. No further treatment is needed. Evaluation Information Assessment Status Evaluation Reported Pain Level Pain Score 0: Self Report Assessment ST Clinical Summary SWALLOWING EVALUATION This patient was seen for a current swallowing evaluation after having a Modified Barium Swallow (MBS) study on 03/06/23 at [facility]. Results of the MBS indicated that patient remained at risk for penetration on larger amounts of uncontrolled thin liquids clearing with an automatic throat clear/cough, and that thicker food items had a tendency to hang up in the throat requiring multiple swallows. At the time of that evaluation, patient stated that he eats whatever he wants and that also he was not using thickener in liquids anymore. Additionally, during that visit patient and also expressed patient had had a chest issue requiring antibiotics several weeks prior to the 03/06 MBS although today they insist the problem was a sinus infection and not a true chest infection. As a result of the concerns at that time, leaving the g-tube in the stomach was recommended and having patient resume his swallowing exercises to further increase the strength of the swallow was suggested. Dr. Mcintyre then sent an order to have patient resume treatment by coming to outpatient services at this facility. Today the patient again stated that he eats whatever he wants including Compleat meals, pizza, and food from restaurants. He states that he eats waffles, scrambled eggs, and cuevas/sausage. Patient had resumed use of thickener in his liquids as he became afraid of aspiration after the 03/06 MBS study and he now states he does not mind it. Patient also reports he can take up to 5 small pills at a time but occasionally his Gabapentin/Co-enzyme Q10 hang up on his tongue and they begin to dissolve so he must cough them up and reswallow. He denies any true choking or aspiration episode. Patient was not presented with food or liquid today. We reviewed the results of the MBS study
== END 2023-06-11 09:20 | disposition home or self-care (01) ==
LOC: ANHST 13:41
PROVIDERS: PCP Family Medicine; Visit Provider Internal Medicine Gastroenterology
DX: R13.12 Dysphagia, oropharyngeal phase (principal)
CPT/HCPCS: 92610

== ENCOUNTER 2023-08-02 08:30 | Outpatient (CLI) | payer MEDICARE, SELFPAY ==
--- NOTE | ~2023-08-02 | MR_ITS ---
EXAMINATION: MR lumbar spine wo/w con DATE: 08/02/2023 09:44 INDICATION: Low back pain. Numbness in the lower extremities. TECHNIQUE: Magnetic resonance imaging (MRI) of the lumbar spine was performed without and with 13 mm MultiHance intravenous contrast. Sequences included sagittal T2-weighted FSE, sagittal T2-weighted FS FSE, sagittal T1-weighted FSE, and axial T2-weighted FSE. COMPARISON: None FINDINGS: There is 7 degrees dextrocurvature of thoracolumbar spine. There is mild chronic anterior w edging of T12 and L1 vertebral bodies. There is 3 mm retrolisthesis of L2 on L3 and L3 on L4. There i s moderately decreased disc height at L2-L3 and severely decreased disc height from L3-L4 through L5- S1. The distal spinal cord signal intensity is normal. The conus medullaris is at L1. There are cysts in the kidneys measuring up to 2.0 cm on the left. The following disc levels are specifically discus sed: L1-L2: The disc does not extend beyond the endplate margin. There is severe right and moderate left f acet joint osteoarthritis. There is no neural foraminal stenosis. There is no central canal stenosis. L2-L3: This is bulging and has an annular fissure. There is mild bilateral facet joint osteoarthritis . There is mild bilateral neural foraminal stenosis. There is mild central canal stenosis. L3-L4: The disc is bulging and has an annular fissure. There is severe bilateral facet joint osteoart hritis. There is moderate bilateral neural foraminal stenosis. There is mild central canal stenosis w ith posterior decompression. L4-L5: The disc is bulging and has an annular fissure. There is severe bilateral facet joint osteoart hritis. There is severe right and moderate left neural foraminal stenosis. There is mild central darin l stenosis. L5-S1: The disc is bulging and has an annular fissure. There is severe bilateral facet joint osteoart hritis. There is moderate right and mild left neural foraminal stenosis. There is mild central canal stenosis. IMPRESSION: 1. Severe lumbar spondylosis. Reviewed, dictated and finalized at location E.
== END 2023-08-02 08:31 | disposition home or self-care (01) ==
PROVIDERS: PCP Family Medicine
DX: M47.816 Spondylosis without myelopathy or radiculopathy, lumbar region (principal); M43.06 Spondylolysis, lumbar region
CPT/HCPCS: 72158; A9577

== ENCOUNTER 2024-02-26 10:31 | Outpatient (CLI) | payer MEDICARE, SELFPAY ==
--- NOTE | 2024-02-26 11:30 | NEURO_ITS ---
Impression: # Complains of numbness of lower extremities. Status post cervical and lumbar spinal surgeries. # Normal motor and sensory Nerve Conduction Study. # Needle/EMG mildly neurogenic in bilateral EDB?s. # Clinical correlation recommended. Findings could be related to previous surgeries. Nerve Conduction Studies Anti Sensory Summary Table Stim Site NR Peak (ms) P-T Amp (?V) Site1 Site2 Delta-P (ms) Dist (cm) Issa (m/s) Left Sup Fibular Anti Sensory (Ant Lat Mall) 14 cm 3.0 43.9 14 cm Ant Lat Mall 3.0 16.0 53 Right Sup Fibular Anti Sensory (Ant Lat Mall) 14 cm 3.5 17.8 14 cm Ant Lat Mall 3.5 16.0 46 Left Sural Anti Sensory (Lat Mall) Calf 3.8 19.1 Calf Lat Mall 3.8 16.0 42 Right Sural Anti Sensory (Lat Mall) Calf 4.6 17.2 Calf Lat Mall 4.6 16.0 35 Motor Summary Table Stim Site NR Onset (ms) O-P Amp (mV) Site1 Site2 Delta-0 (ms) Dist (cm) Issa (m/s) Left Peroneal Motor (Vastus Med) Ankle 4.5 1.6 Popit Ankle 9.5 39.0 41 Popit 14.0 1.9 Right Peroneal Motor (Vastus Med) Ankle 4.4 4.5 Popit Ankle 9.0 39.0 43 Popit 13.4 3.9 Left Tibial Motor (Abd Schneider Brev) Ankle 4.5 3.1 Knee Ankle 8.2 40.0 49 Knee 12.7 1.9 Right Tibial Motor (Abd Schneider Brev) Ankle 4.2 3.9 Knee Ankle 8.5 40.0 47 Knee 12.7 3.4 F Wave Studies NR F-Lat (ms) L-R F-Lat (ms) Left Peroneal (Mrkrs) (EDB) 51.96 2.11 Right Peroneal (Mrkrs) (EDB) 49.84 2.11 Left Tibial (Mrkrs) (Abd Hallucis) 50.43 0.28 Right Tibial (Mrkrs) (Abd Hallucis) 50.16 0.28 EMG Side Muscle Nerve Root Ins Act Fibs Amp Dur Recrt Comment Right AntTibialis Dp Br Fibular L4-5 Nml Nml Nml Nml Nml Right Gastroc Tibial S1-2 Nml Nml Nml Nml Nml Right Fibularis Long Sup Br Fibular L5-S1 Nml Nml Nml Nml Nml Right Flex Dig Long Tibial L5-S2 Nml Nml Nml Nml Nml Right Ext Dig Brev Dp Br Fibular L5, S1 Nml Nml Nml >12ms +1 Right QuadratusFem QuadFemoris L4-5, S1 Nml Nml Nml Nml Nml Left AntTibialis Dp Br Fibular L4-5 Nml Nml Nml Nml Nml Left Gastroc Tibial S1-2 Nml Nml Nml Nml Nml Left Fibularis Long Sup Br Fibular L5-S1 Nml Nml Nml Nml Nml Left Flex Dig Long Tibial L5-S2 Nml Nml Nml Nml Nml Left Ext Dig Brev Dp Br Fibular L5, S1 Nml Nml Nml >12ms +1 Left QuadratusFem QuadFemoris L4-5, S1 Nml Nml Nml Nml Nml MTDD
== END 2024-02-26 10:32 | disposition home or self-care (01) ==
PROVIDERS: PCP Family Medicine; Visit Provider Student in an Organized Health Care Education/Training Program
DX: M21.371 Foot drop, right foot (principal); G57.83 Other specified mononeuropathies of bilateral lower limbs; Z98.890 Other specified postprocedural states; Z98.1 Arthrodesis status
CPT/HCPCS: 95886; 95910

== ENCOUNTER 2024-05-28 10:14 | Outpatient (CLI) | payer MEDICARE, SELFPAY ==
--- NOTE | ~2024-05-28 | XR_ITS ---
AP and lateral views of the right femur Clinical History: Pain Findings: No acute fracture or dislocation is seen. Osseous alignment is anatomic. Visualized joint s paces are grossly preserved. Vascular calcifications noted. Impression: No acute abnormality seen. Reviewed, dictated and finalized at location . ATION COORDINATOR Impression: No acute abnormality seen.
--- NOTE | ~2024-05-28 | XR_ITS ---
AP view of the pelvis and AP and lateral views of the right hip Clinical history: Pain Findings: No acute fracture or dislocation is seen. Osseous alignment is anatomic. There is mild dege nerative change of both hip joints. Soft tissues are unremarkable. Impression: Mild degenerative change of both hip joints. Reviewed, dictated and finalized at location M. SPERSON PARTS Impression: Mild degenerative change of both hip joints.
== END 2024-05-28 10:15 | disposition home or self-care (01) ==
LOC: MICIMG 10:19
PROVIDERS: PCP Family Medicine; Visit Provider Family Medicine
DX: M16.0 Bilateral primary osteoarthritis of hip (principal); M79.651 Pain in right thigh
CPT/HCPCS: 73502; 73552

== ENCOUNTER 2024-06-03 13:39 | Outpatient (CLI) | payer MEDICARE, SELFPAY ==
--- NOTE | ~2024-06-03 | MR_ITS ---
EXAMINATION: MR lumbar spine wo con DATE: 06/03/2024 14:32 INDICATION: Lumbar spondylosis with radiculopathy and numbness to the lower extremities TECHNIQUE: Magnetic resonance imaging (MRI) of the lumbar spine was performed without intravenous con trast. Sequences included sagittal T2-weighted FSE, sagittal T2-weighted FS FSE, sagittal T1-weighted FSE, and axial T2-weighted FSE. COMPARISON: None FINDINGS: 7 degrees lumbar levocurvature. 2 mm retrolisthesis L2 on L3 and 3 mm retrolisthesis L3 on L4. Chroni c mild anterior wedging at T12. Lumbar vertebral body heights are normal. Schmorl's node along the douglas perior endplate of L3. Severe disc height loss with associated fibrofatty and fibrovascular degenerat flor endplate changes at L3-L4. Moderate right-sided predominant disc height loss with additional fibr ovascular degenerative endplate changes at L4-L5 and diffuse moderate disc height loss at L2-L3 and L 5-S1. There are annular fissures at T12-L1 and at L2-L3 through L5-S1. The conus medullaris terminate s at L1-L2. There is normal signal in the caudal spinal cord. Bilateral T2 hyperintense renal cysts, the largest on the left measuring up to 2.1 cm. The following disc levels are specifically discussed: T12-L1: Disc is mildly bulging. There is moderate left and severe right facet joint osteoarthritis. T here is mild left neural foraminal stenosis. There is minimal central canal stenosis. L1-L2: Small bilateral foraminal zone disc protrusions. Macro flavum There is moderate left and sever e right facet joint osteoarthritis. There is mild bilateral neural foraminal stenosis. There is no ce ntral canal stenosis. L2-L3: Disc is mildly bulging. There is moderate bilateral facet joint osteoarthritis. There is mild to moderate bilateral neural foraminal stenosis. There is mild central canal stenosis. L3-L4: Posterior disc osteophyte complex. There is severe bilateral facet joint osteoarthritis. There is moderate bilateral neural foraminal stenosis. There is mild central canal stenosis with posterior decompression with right hemilaminotomy.. L4-L5: Disc is bulging. There is severe bilateral facet joint osteoarthritis. There is moderate left and severe right neural foraminal stenosis. There is mild central canal stenosis. L5-S1: Disc is bulging. There is severe bilateral facet joint osteoarthritis. There is moderate bilat eral neural foraminal stenosis. There is mild central canal stenosis. IMPRESSION: 1. 7 degrees lumbar levocurvature with severe spondylosis and change of prior right L3-L4 hemilaminot anthony. Reviewed, dictated and finalized at location [facility] IMPRESSION: 1. 7 degrees lumbar levocurvature with severe spondylosis and change of prior r ight L3-L4 hemilaminotomy.
--- OUTSIDE RECORDS SUMMARY | 2024-06-03 13:50 | XMS_ITS | Clinical Summary ---
Author Organization [facility] [place] [address] Address [address] [place] [address] Care Team Providers Care Rural Carrier Name Role Phone Luke Emmanuel MD Primary Care Provider [phone] Allergies Active Allergy Reactions Criticality Noted Date Comments Morphine Itching,Rash Medium 11/16/2016 Medications latanoprost (XALATAN) 0.005 % ophthalmic solution Administer 1 drop into the left eye nightly Active omeprazole (PriLOSEC) 20 mg capsule Take 1 capsule (20 mg total) by mouth daily Active nitroglycerin (NITROSTAT) 0.[address] 1 tablet (0.4 mg total) under the tongue every 5 (five) minutes as needed for chest pain Active pravastatin (PRAVACHOL) 80 mg tablet Take 1 tablet (80 mg total) by mouth daily Active famotidine (PEPCID) 20 mg tabletIndication s:Heartburn Prevention Take 1 tablet (20 mg total) by mouth 2 (two) times a day Active carvediloL (COREG) 12.5 mg tabletIndication s:Essential hypertension Take 1 tablet (12.5 mg total) by mouth nightly 08/03/19 22 Active traZODone (DESYREL) 50 mg tablet Take 1 tablet (50 mg total) by mouth nightly as needed 01/27/20 22 Active ALPRAZolam (XANAX) 0.25 mg tablet Take by mouth 3 (three) times a day as needed 09/21/19 23 Active aspirin 81 mg enteric coated tablet Take 1 tablet (81 mg total) by mouth daily 30 tablet 11 11/07/19 23 Active amLODIPine (NORVASC) 5 mg tablet Take 1 tablet (5 mg total) by mouth daily 04/10/20 23 Active escitalopram (LEXAPRO) 10 mg tablet Take 1 tablet (10 mg total) by mouth daily 04/10/20 23 Active gabapentin (NEURONTIN) 300 mg capsule Take 1 capsule (300 mg total) by mouth 2 (two) times a day Active lisinopriL (PRINIVIL,ZESTRI L) 20 mg tabletIndication s:Essential hypertension Take 2 tablets by mouth once daily 180 tablet 3 12/25/19 24 Active vit C,X-Sl-iyonb-lut ein-zeaxan 250-90-40-1 mg capsule Take by mouth Active benzonatate (TESSALON) 200 mg capsule TAKE 1 CAPSULE BY MOUTH THREE TIMES DAILY NEEDED FOR COUGH 01/25/20 24 Active magnesium gluconate 200 mg tabletIndication s:hypomagnesemia 1 tablet (200 mg total) Active diclofenac DR (VOLTAREN) 75 mg EC tablet Take 1 tablet (75 mg total) by mouth 2 (two) times a day Active ezetimibe (ZETIA) 10 mg tabletIndication s:Hyperlipidemia LDL goal <70 Take 1 tablet by mouth once daily 90 tablet 05/09/19 25 Active ezetimibe (ZETIA) 10 mg tabletIndication s:Hyperlipidemia LDL goal <70 Take 1 tablet (10 mg total) by mouth daily 90 tablet 1 08/16/19 24 025 Discontinued Active Problems Problem Noted Date Diagnosed Date Bilateral impacted cerumen 04/04/2024 Debilitated 10/24/2022 History of atrial fibrillation 10/18/2022 Paroxysmal atrial fibrillation (CMS/HCC) 023 Pharyngoesophageal dysphagia 11/04/2021 Laryngopharyngeal reflux (LPR) 11/04/2021 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 08/06/2021 CKD (chronic kidney disease), stage II Leg fatigue 12/19/2020 Bradycardia 12/14/2020 Pain in both lower extremities 12/14/2020 Visual disturbance 12/14/2020 Muscle cramps 12/10/2018 Other chest pain 01/29/2018 Statin intolerance 01/29/2018 Coronary artery disease invo lving [place] coronary artery of [place] heart without angina pectoris 11/16/2016 [place] (myocardial infarction) 11/16/2016 H/O coronary angioplasty 11/16/2016 Hypercholesteremia 11/16/2016 Essential hypertension 11/16/2016 Resolved Problems Problem Noted Date Diagnosed Date Resolved Date Status post Maze operation f or atrial fibrillation 10/18/2022 10/18/2022 Bilateral impacted cerumen 04/29/2022 0 04/24/2023 Encounters Date Type Department Care Team Description 04/04/2024 9:00 AM [facility] Office Visit [facility] Otol[facility]ology [place] [address] Taiwo Banuelos II, MD Bilateral impacted cerumen (Primary Dx); Pharyngoesophageal dysphagia from Last 3 Months Surgical History Surgery Date Site/Laterality Comments CORONARY ANGIOPLASTY ROTATOR CUFF REPAIR Bilateral Most recent 2016 SINUS SURGERY 14 y.o. CERVICAL SPINE SURGERY 04/16/2007 - 04/15/2008 UNDESCENDED TESTICLE EXPLORATION HERNIA REPAIR Medical History Medical History Date Comments History of myocardial infarction Hypertension Hyperlipidemia Acid indigestion Glaucoma Cataracts, bilateral Coronary artery disease 1994 Angiopla sty H/O undescended testicle s/p orc hiectomy Colin's esophagus gets periodi c scopes Allergic rhinitis Heart disease Kidney disease Sciatic nerve disease Tinnitus Ear problems Carpal tunnel syndrome Family History Medical History Relation Name Comments Heart disease Brother Heart attack Father Heart failure Mother Heart attack Sister Heart disease Sister Relation Name Status Comments Brother Alive Father Mother Alive Sister Alive Social History Tobacco Use Types Packs/Day Years Used Date Smoking Tobacco: Former Cigarettes Q uit: 12/02/2002 Smokeless Tobacco: Never Tobacco Cessation:Counseling Given: Not Answered Alcohol Use Standard Drinks/Week Comments Yes 0 (1 standard drink = 0.6 oz pur e alcohol) occassionally PHQ-2 Answer Date Recorded PHQ-2 Score 0 06/13/2019 Sex and Gender Information Value Date Recorded Sex Assigned at Not on file Legal Sex Male 9:53 AM CDT Gender Identity Not on file Sexual Orientation Not on file Obstetrics History Last Filed Vital Signs Vital Sign Reading Time Taken Comments Blood Pressure 142/62 01/22/2024 10:28 AM CDT Pulse 56 01/22/2024 10:28 AM CDT Temperature - - Respiratory Rate 18 04/04/2024 9:02 AM [facility] Oxygen Saturation 98% 01/22/2024 10:28 AM CDT Inhaled Oxygen Concentration - - Weight 71.2 kg (157 lb) 04/04/2024 9:02 AM [facility] Height 172.7 cm (5' 8 ) 04/04/2024 9:02 AM [facility] Body Mass Index 23.87 04/04/2024 9:02 AM [facility] Plan of Treatment Health Maintenance Due Date Last Done Comments Colon Cancer Screening-Colonoscopy 1950 Fall Risk Assessment 1950 Hepatitis C Screening 1950 DTaP/Tdap/Td Vaccine (1 - Tdap) 11/07/1959 Hepatitis B Screening 1966 Zoster Vaccine (1 of 2) 1998 Abdominal Aortic Aneurysm (A AA) Screen 2013 Well Visit 65+ 2013 Depression Screening 06/13/2020 06/13/2019 Influenza Vaccine (#1) 2023 9, 01/14/2018, 01/26/2017, Additional history exists Pneumococcal vaccine 65+ Completed 05/03/2016, 12/17 Insurance MEDICARE [employer] MEDICARE [employer] MEDICARE [employer] MED[employer]ARE [employer] MEDICARE [employer]ARE [employer] Care Teams Rural Carrier Relationship Specialty Start Date End Date Luke Emmanuel MD [address] [place] [phone] PCP - General Family Medicine 10/27/16
--- OUTSIDE RECORDS SUMMARY | 2024-06-03 13:50 | XMS_ITS | Clinical Summary ---
Author Organization [facility] Address [address] [place] [address] Phone Care Team Providers Care Bilingual Kindergarten Teacher Name Role Phone Luke Emmanuel MD Primary Care Provider Allergies Active Allergy Reactions Criticality Noted Date Comments Morphine Itching,Rash Medium 11/16/2016 Medications carvediloL (COREG) 12.5 mg tablet Take 12.5 mg by mouth daily at bedtime. 2 Active ezetimibe (ZETIA) 10 mg tablet Take 1 Tablet by mouth daily. 3 Active gabapentin (NEURONTIN) 300 mg capsule Take 300 mg by mouth 3 times daily. 2 Active latanoprost (XALATAN) 0.005 % solution Administer 1 Drop in both eyes daily at bedtime. Active lisinopril 20 mg-hydrochlorot hiazide 25 mg tablet Take 2 Tablets by mouth daily. Active nitroglycerin (NITROSTAT) 0.4 mg Tablet, Sublingual Place 0.4 mg under tongue every 5 minutes as needed. Active omeprazole (PriLOSEC) 20 mg Capsule, Delayed Release(E.C.) Take 20 mg by mouth daily. Active pravastatin (PRAVACHOL) 80 mg tablet Take 80 mg by mouth daily. Active traZODone (DESYREL) 50 mg tablet Take 50 mg by mouth nightly as needed. 2 Active coenzyme Q10 200 mg Capsule Take 200 mg by mouth daily at bedtime. Active cyanocobalamin (vit B-12) 500 mcg tablet Take 500 mcg by mouth daily. Active famotidine (PEPCID) 20 mg tablet Take 20 mg by mouth daily. Active magnesium oxide 250 mg magnesium Tablet Take 250 mg by mouth daily. Active vit A/vit C/vit E/zinc/copper (PRESERVISION AREDS ORAL) Take 1 Tablet by mouth daily. Active diclofenac sodium (VOLTAREN) 1 % gel Apply 2 Grams to affected area. Active oxyCODONE (ROXICODONE) 10 mg tabletIndicatio ns:Cervical vertebral fusion Take One-Half to One Tablet (5-10 mg) by mouth every 4 hours as needed for Moderate Pain. Max Daily Amount: 60 mg 40 Tablet 09/02/2022 2:29 PM CDT 3 Active diltiaZEM (CARDIZEM CD) 240 mg Controlled Delivery 24 hour capsule Take 1 Capsule (240 mg) by mouth daily. 60 Capsule 09/09/2022 2:17 PM CDT 3 Active apixaban (ELIQUIS) 5 mg tablet Take 1 Tablet (5 mg) by mouth 2 times daily. 60 Tablet 1 09/09/2022 2:17 PM CDT 3 Active Active Problems Problem Noted Date Diagnosed Date Severe protein-calorie malnutrition 09/06/2022 Internal carotid artery stenosis, right 09/05/19 23 Hyponatremia 09/03/2022 Airway obstruction 09/03/2022 Acute respiratory distress 09/02/2022 Hematoma of neck 09/02/2022 Encounters Date Type Department Care Team Description 05/07/2024 External Device Data [facility] ABSTRACTION Provider, Abstract 05/07/2024 External Device Data [facility] ABSTRACTION Provider, Abstract 04/30/2024 External Device Data [facility] ABSTRACTION Provider, Abstract from Last 3 Months Social History Tobacco Use Types Packs/Day Years Used Date Smoking Tobacco: Former Cigarettes 1 20 1 975 - 1994 Smokeless Tobacco: Never Tobacco Cessation:Counseling Given: Not Answered Alcohol Use Standard Drinks/Week Comments Yes 0 (1 standard drink = 0.6 oz pure alcohol) socially-drinks every few months Feeling Safe Answer Date Recorded Are you in a relationship wi th someone who hurts you emotionally and/or physically? No 09/03/2022 Food Insecurity Answer Date Recorded Social/Environmental Concerns No concerns Transportation Needs Answer Date Record ed Social/Environmental Concerns No concerns Housing Stability Answer Date Recorded Social/Environmental Concerns No concerns Utility Needs Answer Date Recorded Social/Environmental Concerns No concerns Sex and Gender Information Value Date Recorded Sex Assigned at Not on file Legal Sex Male 5:46 PM CDT Gender Identity Not on file Sexual Orientation Not on file Last Filed Vital Signs Vital Sign Reading Time Taken Comments Blood Pressure 125/65 09/09/2022 2:00 PM CDT Pulse 67 09/09/2022 2:00 PM CDT Temperature 36.4 C (97.6 F) 09/09/2022 12:20 PM CDT Respiratory Rate 16 09/09/2022 12:20 PM CDT Oxygen Saturation 99% 09/09/2022 2:00 PM CDT Inhaled Oxygen Concentration - - Weight 73 kg (160 lb 15 oz) 09/03/2022 9:30 AM C DT Height 172.7 cm (5' 8 ) 09/03/2022 9:30 AM CDT Body Mass Index 24.47 09/03/2022 9:30 AM CDT Plan of Treatment Health Maintenance Due Date Last Done Comments DTAP/TDAP/TD VACCINES (1 - Tdap) 11/07/1967 COLORECTAL SCREENING 1993 Colorectal Cancer Screening 1993 FIT-DNA Q 3 years 1993 FIT/FOBT Q 1 year 1993 Flex Sig/CT Colonography Q 5 years 1993 PNEUMOCOCCAL VACCINE 65+ YEARS (1 of 1 - PCV) 11/06/18 99 ZOSTER VACCINE (1 of 2) 1998 Abdominal Aortic Aneurysm (AAA) Screening 2013 RSV VACCINE (60+ or ) (1 - 1-dose 75+ series) 11/07/2023 INFLUENZA VACCINE (#1) 2023 Medical Devices Implanted Type Area Nutrition Services Aide Device Identifier Shelf Expiration Date Model / Serial / Lot Hemostatic Surgiflo 8ml W/ Thrombin [id number] - Sna Implanted:Qty: 1 on 09/01/2022 by Gonsalo Pitt MD at [facility] Hemostatic N/A: Neck [employer] 05/16/2023 [id number] / NA / [id number] Hemostatic Surgicel 4x8in 1953 [id number] Implanted:Qty: 1 on 09/02/2022 by Gonsalo Pitt MD at [facility] Hemostatic N/A: Neck [employer] 12/14/20261951 [id number] Hemostatic Surgifoam [id number] Implanted:Qty: 1 on 09/02/2022 by Gonsalo Pitt MD at [facility] Hemostatic N/A: Neck [employer]- [employer] 02/16/20261974 [id number] Hemostatic Surgiflo 8ml W/ Thrombin 2993 [id number] Implanted:Qty: 1 on 09/02/2022 by Gonsalo Pitt MD at [facility] Hemostatic N/A: Neck [employer] 07/15/20232993 / / [id number] Plate [place] Vision Elite 60.0mm [id number] - Sna Implanted:Qty: 1 on 09/01/2022 by Gonsalo Pitt MD at [facility] Plate N/A: Neck [employer] [place] [id number] / NA / NA Description:Load number [id number] sterilized 08/31/[id number] [address] [place] 4.0x17mm [id number] - Sna Implanted:Qty: 8 on 09/01/2022 by Gonsalo Pitt MD at [facility] Screw N/A: Neck [employer] [place] [id number] / NA / NA Description:Load number 138 705 sterilized 08/31/2022 Bone Block L-Ascr [id number] - [id number] Implanted:Qty: 1 on 09/01/2022 by Gonsalo Pitt MD at [facility] Tissue N/A: Neck [employer] 12/05/2024 [id number] / [id number] / [id number] Description:SVA CHECKED RUFINA [id number] Insurance [address] RX [facility] Medicare Part D RX [employer] Commercial Advance Directives For more information, please contact: [phone] * Full Code (Latest Code Status on File) Date Activated Date Inactivated Comments 09/02/2022 9:22 PM 09/09/2022 5:17 PM * Default Full Code - Needs Discussion Date Activated Date Inactivated Comments 09/02/2022 5:10 PM 09/02/2022 9:22 PM * Full Code Date Activated Date Inactivated Comments 09/01/2022 4:22 PM 09/02/2022 4:17 PM Care Teams Bilingual Kindergarten Teacher Relationship Specialty Start Date End Date Luke Emmanuel MD [address] [place] [address] PCP - General Family Practice 08/25/22
--- OUTSIDE RECORDS SUMMARY | 2024-06-03 13:50 | XMS_ITS | Referral Summary ---
Author Organization [facility] [address] Address [address] [place] [address] Care Team Providers Care Labor Relations Or Personnel Negotiator Name Role Phone Luke Emmanuel MD Primary Care Provider [phone] Encounters Date Type Department Care Team Description 04/04/2024 9:00 AM SEAMER Office Visit [facility] Otolaryngology [address] [place] [address] Taiwo Banuelos II, MD Bilateral impacted cerumen (Primary Dx); Pharyngoesophageal dysphagia from Last 3 Months Allergies Active Allergy Reactions Criticality Noted Date [...] 180 tablet 3 12/25/19 24 Active vit C,R-Ad-tnauz-lut ein-zeaxan 250-90-40-1 mg capsule Take by mouth [...] intolerance 01/29/2018 Coronary artery disease invo lving [place] coronary artery of [place] heart without angina pectoris 11/16/2016 Old PA (myocardial infarction) 11/16/2016 H/O coronary angioplasty 11/16/2016 Hypercholesteremia 11/16/2016 Essential hypertension 11/16/2016 Resolved Problems Problem Noted Date Diagnosed Date Resolved Date Status post Maze operation f or atrial fibrillation 10/18/2022 10/18/2022 Bilateral impacted cerumen 04/29/2022 0 04/24/2023 Social History Tobacco Use Types Packs/Day Years [...] - Respiratory Rate 18 04/04/2024 9:02 AM SEAMER Oxygen Saturation 98% 01/22/2024 10:28 AM CDT Inhaled Oxygen Concentration - - Weight 71.2 kg (157 lb) 04/04/2024 9:02 AM SEAMER Height 172.7 cm (5' 8 ) 04/04/2024 9:02 AM SEAMER Body Mass Index 23.87 04/04/2024 9:02 AM SEAMER Plan of Treatment Not on file Insurance MEDICARE [employer] [place] [address] ([address] [address] MEDICARE [employer] MED[employer] [facility] [place] [address] MEDICARE [employer] Care Teams Labor Relations Or Personnel Negotiator Relationship Specialty Start Date End Date Luke Emmanuel MD [address] [place] [id number] PCP - General Family Medicine 10/27/16
--- OUTSIDE RECORDS SUMMARY | 2024-06-03 13:50 | XMS_ITS | Clinical Summary ---
Author Organization [facility] Address [address] [place] [address] Care Team Providers Care Employee Wellness/Fitness Coordinator Name Role Phone Luke Emmanuel MD Primary Care Provider [phone] Social History Tobacco Use Types Packs/Day Years Used Date Smoking Tobacco: Never Assessed Sex and Gender Information Value Date Recorded Sex Assigned at Not on file Legal Sex Male 3:24 PM CDT Gender Identity Not on file Sexual Orientation Not on file Plan of Treatment Health Maintenance Due Date Last Done Comments Colorectal Cancer Screening Colonoscopy (10 Years) 1948 Hepatitis C 1966 DTaP, Tdap and Td Vaccines (1 - Tdap) 11/07/1967 Zoster Vaccines (1 of 2) 1998 Annual Medicare Wellness Visit 2013 RSV Immunization or 60+ Years (1 - 1-dose 75+ series) 11/07/2023 COVID-19 Vaccine ( season) 2023 01/16/2022, 09/20/2021, 02/07/2021, Additional history exists Influenza Adult (#1) 2024 01/17/2021, 01/08/2020, 01/21/2019, Additional history exists Pneumococcal Vaccine: 65+ Years Completed 05/03/2016, 01/13/2015 Meningococcal B Vaccine Aged Out No l onger eligible based on patient's age to complete this topic Meningococcal Vaccine Aged Out No titi kerry eligible based on patient's age to complete this topic RSV Immunizations Under 20 Months Aged Out No longer eligible based on patient's age to complete this topic Insurance MEDICARE Care Teams Employee Wellness/Fitness Coordinator Relationship Specialty Start Date End Date Luke Emmanuel MD [address] [place] [id number] PCP - General FAMILY PRACTICE 01/10/21
== END 2024-06-03 13:40 | disposition home or self-care (01) ==
PROVIDERS: PCP Family Medicine; Visit Provider Family Medicine
DX: M47.26 Other spondylosis with radiculopathy, lumbar region (principal); M41.86 Other forms of scoliosis, lumbar region; Z98.890 Other specified postprocedural states
CPT/HCPCS: 72148